=== PATIENT | female | born 1945 | race Caucasian/White ===

== ENCOUNTER → 2024-01-27 06:26 | Outpatient (REF) | payer MEDICARE, OTHER, SELFPAY ==
[2024-01-27 07:25] LABS: ALT (SGPT) 20 U/L (0-35); AST (SGOT) 28 U/L (14-36); Albumin 3.9 g/dl (3.5-5.0); Alkaline Phosphatase 92 U/L (38-126); Blood Urea Nitrogen 13 mg/dl (7-17); Calcium 9.5 mg/dl (8.4-10.2); Carbon Dioxide 26 mmol/L (22-30); Chloride 104 mmol/L (98-107); Glucose 91 mg/dl (70-99); Potassium 4.7 mmol/L (3.5-5.1); Sodium 136 mmol/L (135-145); Total Bilirubin 0.6 mg/dl (0.2-1.3); Total Protein 6.6 g/dl (6.3-8.2); eGFR > 60.00
[2024-01-27 07:27] LABS: % Basophils 1.5 % (0-2); % Eosinophils 3.4 % (0-6); % Immature Granulocytes 0.5 % (0-0.5); % Lymphocytes 28.4 % (20.5-51.1); % Monocytes 13.7 % (1.7-9.3); % Neutrophils 52.5 % (42.2-75.2); Absolute Basophils 0.1 10^3/uL (0-0.2); Absolute Eosinophils 0.1 10^3/uL (0-0.7); Absolute Lymphocytes 1.2 10^3/uL (1.2-3.4); Absolute Monocytes 0.6 10^3/uL (0.1-0.6); Absolute Neutrophils 2.1 10^3/uL (1.4-6.5); Hematocrit 37.1 % (37.0-47.0); Hemoglobin 12.9 g/dL (12.0-16.0); Mean Corp Hgb Conc. 34.8 g/dL (33.0-37.0); Mean Corpuscular Hgb 34.3 pg (27.0-31.0); Mean Corpuscular Volume 98.7 fL (81.0-99.0); Mean Platelet Volume 9.9 fL (7.4-10.4); Nucleated Red Blood Cells % 0 %; Platelet Count 188 10^3/uL (130-400); Red Blood Cell Count 3.76 10^6/uL (4.20-5.40); Red Cell Dist. Width 12.8 % (11.5-14.5); White Blood Cell Count 4.1 10^3/uL (4.8-10.8)
[2024-01-27 07:53] LABS: TSH 3.02 uIU/ml (0.47-4.68)
== END ==
LOC: REG 06:26
PROVIDERS: ATTENDING PHYSICIAN Family Medicine
DX: I10 Essential (primary) hypertension (principal); E78.2 Mixed hyperlipidemia; E03.9 Hypothyroidism, unspecified
CPT/HCPCS: 36415; 80053; 84443; 85025

== ENCOUNTER → 2024-01-29 09:55 | Outpatient (REF) | payer MEDICARE, OTHER, SELFPAY | LOC: REG 09:55 | PROVIDERS: ATTENDING PHYSICIAN Family Medicine | DX: R19.5 Other fecal abnormalities (principal) | CPT/HCPCS: 83993 ==

== ENCOUNTER → 2024-05-29 09:05 | Outpatient (REF) | payer MEDICARE, OTHER, SELFPAY ==
[2024-05-29 09:49] LABS: % Basophils 1.2 % (0-2); % Immature Granulocytes 0.4 % (0-0.5); % Lymphocytes 19.6 % (20.5-51.1); % Neutrophils 66.8 % (42.2-75.2); Absolute Basophils 0.1 10^3/uL (0-0.2); Absolute Eosinophils 0.1 10^3/uL (0-0.7); Absolute Monocytes 0.6 10^3/uL (0.1-0.6); Absolute Neutrophils 3.5 10^3/uL (1.4-6.5); Hemoglobin 12.5 g/dL (12.0-16.0); Mean Corp Hgb Conc. 34.7 g/dL (33.0-37.0); Mean Corpuscular Hgb 33.9 pg (27.0-31.0); Mean Corpuscular Volume 97.6 fL (81.0-99.0); Nucleated Red Blood Cells % 0 %; Platelet Count 182 10^3/uL (130-400); Red Blood Cell Count 3.69 10^6/uL (4.20-5.40); Red Cell Dist. Width 12.4 % (11.5-14.5); White Blood Cell Count 5.2 10^3/uL (4.8-10.8)
[2024-05-29 10:26] LABS: ALT (SGPT) 20 U/L (0-35); AST (SGOT) 26 U/L (14-36); Alkaline Phosphatase 77 U/L (38-126); Blood Urea Nitrogen 10 mg/dl (7-17); Calcium 9.3 mg/dl (8.4-10.2); Carbon Dioxide 26 mmol/L (22-30); Chloride 101 mmol/L (98-107); Glucose 84 mg/dl (70-99); HDL Cholesterol 73 mg/dl; LDL Cholesterol, Calculated 77 mg/dl; Potassium 4.5 mmol/L (3.5-5.1); Sodium 136 mmol/L (135-145); Total Bilirubin 0.4 mg/dl (0.2-1.3); Total Cholesterol 176 mg/dl (50-199); Total Protein 6.3 g/dl (6.3-8.2); Triglyceride 131 mg/dl (10-149); Very Low Density Lipoprotein 26 mg/dl (0-30); eGFR > 60.00
[2024-05-29 10:39] LABS: Vitamin D, 25-OH*** 32.9 ng/mL (30-80)
[2024-05-29 10:53] LABS: TSH 1.62 uIU/ml (0.47-4.68)
[2024-05-29 11:12] LABS: Vitamin B12 243 pg/ml (239-931)
== END ==
LOC: REG 09:05
PROVIDERS: ATTENDING PHYSICIAN Family Medicine
DX: E53.8 Deficiency of other specified B group vitamins (principal); E03.9 Hypothyroidism, unspecified; E55.9 Vitamin D deficiency, unspecified; I10 Essential (primary) hypertension; E78.2 Mixed hyperlipidemia
CPT/HCPCS: 36415; 80053; 80061; 82306; 82607; 84443; 85025

== ENCOUNTER → 2024-09-25 14:57 | Outpatient (REF) | payer MEDICARE, OTHER, SELFPAY | LOC: RAD 14:57 | PROVIDERS: ATTENDING PHYSICIAN Internal Medicine Gastroenterology | DX: K59.01 Slow transit constipation (principal) | CPT/HCPCS: 74018 ==

== ENCOUNTER → 2024-09-29 06:27 | Outpatient (REF) | payer MEDICARE, OTHER, SELFPAY ==
[2024-09-29 08:35] LABS: % Basophils 1.9 % (0-2); % Eosinophils 3.2 % (0-6); % Immature Granulocytes 0.2 % (0-0.5); % Lymphocytes 28.3 % (20.5-51.1); % Monocytes 14.4 % (1.7-9.3); Absolute Basophils 0.1 10^3/uL (0-0.2); Absolute Eosinophils 0.1 10^3/uL (0-0.7); Absolute Lymphocytes 1.2 10^3/uL (1.2-3.4); Absolute Monocytes 0.6 10^3/uL (0.1-0.6); Absolute Neutrophils 2.2 10^3/uL (1.4-6.5); Hematocrit 37.7 % (37.0-47.0); Hemoglobin 12.5 g/dL (12.0-16.0); Mean Corp Hgb Conc. 33.2 g/dL (33.0-37.0); Mean Corpuscular Hgb 33.7 pg (27.0-31.0); Mean Corpuscular Volume 101.6 fL (81.0-99.0); Mean Platelet Volume 10.7 fL (7.4-10.4); Nucleated Red Blood Cells % 0 %; Platelet Count 175 10^3/uL (130-400); Red Blood Cell Count 3.71 10^6/uL (4.20-5.40); Red Cell Dist. Width 12.9 % (11.5-14.5); White Blood Cell Count 4.3 10^3/uL (4.8-10.8)
[2024-09-29 09:11] LABS: ALT (SGPT) 21 U/L (0-35); AST (SGOT) 26 U/L (14-36); Alkaline Phosphatase 74 U/L (38-126); Blood Urea Nitrogen 18 mg/dl (7-17); Calcium 8.9 mg/dl (8.4-10.2); Carbon Dioxide 29 mmol/L (22-30); Chloride 104 mmol/L (98-107); Glucose 86 mg/dl (70-99); HDL Cholesterol 87 mg/dl; LDL Cholesterol, Calculated 83 mg/dl; Sodium 141 mmol/L (135-145); Total Bilirubin 0.5 mg/dl (0.2-1.3); Total Cholesterol 179 mg/dl (50-199); Total Protein 6.4 g/dl (6.3-8.2); Triglyceride 49 mg/dl (10-149); Very Low Density Lipoprotein 9 mg/dl (0-30); eGFR > 60.00
[2024-09-29 09:42] LABS: TSH 2.62 uIU/ml (0.47-4.68)
[2024-09-29 10:01] LABS: Vitamin B12 265 pg/ml (239-931)
[2024-09-30 21:47] LABS: Vitamin D 1,25 Dihydroxy 42.3 pg/mL (19.9-79.3)
== END ==
LOC: REG 06:27
PROVIDERS: ATTENDING PHYSICIAN Family Medicine
DX: E55.9 Vitamin D deficiency, unspecified (principal); E53.8 Deficiency of other specified B group vitamins; E03.9 Hypothyroidism, unspecified; I10 Essential (primary) hypertension; E78.2 Mixed hyperlipidemia
CPT/HCPCS: 36415; 80053; 80061; 82607; 82652; 84443; 85025

== ENCOUNTER → 2025-02-14 06:23 | Outpatient (REF) | payer MEDICARE, OTHER, SELFPAY ==
[2025-02-14 07:39] LABS: % Basophils 1.6 % (0-2); % Eosinophils 2.1 % (0-6); % Immature Granulocytes 0.5 % (0-0.5); % Lymphocytes 24.9 % (20.5-51.1); % Monocytes 9.6 % (1.7-9.3); % Neutrophils 61.3 % (42.2-75.2); Absolute Basophils 0.1 10^3/uL (0-0.2); Absolute Eosinophils 0.1 10^3/uL (0-0.7); Absolute Lymphocytes 1.1 10^3/uL (1.2-3.4); Absolute Monocytes 0.4 10^3/uL (0.1-0.6); Absolute Neutrophils 2.6 10^3/uL (1.4-6.5); Hematocrit 37.8 % (37.0-47.0); Hemoglobin 12.6 g/dL (12.0-16.0); Mean Corp Hgb Conc. 33.3 g/dL (33.0-37.0); Mean Corpuscular Hgb 33.6 pg (27.0-31.0); Mean Corpuscular Volume 100.8 fL (81.0-99.0); Mean Platelet Volume 10.5 fL (7.4-10.4); Nucleated Red Blood Cells % 0 %; Platelet Count 185 10^3/uL (130-400); Red Blood Cell Count 3.75 10^6/uL (4.20-5.40); White Blood Cell Count 4.3 10^3/uL (4.8-10.8)
[2025-02-14 08:16] LABS: ALT (SGPT) 17 U/L (0-35); AST (SGOT) 21 U/L (14-36); Albumin 4.1 g/dl (3.5-5.0); Alkaline Phosphatase 71 U/L (38-126); Blood Urea Nitrogen 17 mg/dl (7-17); Calcium 9.2 mg/dl (8.4-10.2); Carbon Dioxide 25 mmol/L (22-30); Chloride 111 mmol/L (98-107); Glucose 91 mg/dl (70-99); HDL Cholesterol 77 mg/dl; LDL Cholesterol, Calculated 98 mg/dl; Potassium 4.8 mmol/L (3.5-5.1); Sodium 143 mmol/L (135-145); Total Bilirubin 0.7 mg/dl (0.2-1.3); Total Cholesterol 185 mg/dl (50-199); Total Protein 6.6 g/dl (6.3-8.2); Triglyceride 54 mg/dl (10-149); Very Low Density Lipoprotein 10 mg/dl (0-30); eGFR > 60.00
[2025-02-14 08:39] LABS: TSH 2.39 uIU/ml (0.47-4.68)
[2025-02-14 08:59] LABS: Vitamin B12 742 pg/ml (239-931)
== END ==
LOC: REG 06:23
PROVIDERS: ATTENDING PHYSICIAN Family Medicine
DX: Z00.00 Encounter for general adult medical examination without abnormal findings (principal); M85.89 Other specified disorders of bone density and structure, multiple sites; I65.1 Occlusion and stenosis of basilar artery; H35.3132 Nonexudative age-related macular degeneration, bilateral, intermediate dry stage; E78.2 Mixed hyperlipidemia; E55.9 Vitamin D deficiency, unspecified; E53.8 Deficiency of other specified B group vitamins; E03.9 Hypothyroidism, unspecified; K59.01 Slow transit constipation; R79.0 Abnormal level of blood mineral; I10 Essential (primary) hypertension
CPT/HCPCS: 36415; 80053; 80061; 82607; 84443; 85025

== ENCOUNTER → 2025-03-07 14:12 | Outpatient (REF) | payer MEDICARE, OTHER, SELFPAY | LOC: PAVMRI 14:12 | PROVIDERS: ATTENDING PHYSICIAN Psychiatry & Neurology Neurology; FAMILY PHYSICIAN Family Medicine | DX: R26.9 Unspecified abnormalities of gait and mobility (principal); R42 Dizziness and giddiness | CPT/HCPCS: 70553; A9575 ==

== ENCOUNTER → 2025-03-20 06:49 | Outpatient (REF) | payer MEDICARE, OTHER, SELFPAY ==
[2025-03-20 08:15] LABS: VerifyNow Aspirin 552 ARU
[2025-03-20 08:39] LABS: HDL Cholesterol 75 mg/dl; LDL Cholesterol, Calculated 82 mg/dl; Very Low Density Lipoprotein 13 mg/dl (0-30)
== END ==
LOC: REG 06:49
PROVIDERS: ATTENDING PHYSICIAN Psychiatry & Neurology Neurology; FAMILY PHYSICIAN Family Medicine
DX: I63.9 Cerebral infarction, unspecified (principal); E03.9 Hypothyroidism, unspecified
CPT/HCPCS: 36415; 80061; 85576

== ENCOUNTER → 2025-03-24 07:35 | Outpatient (REF) | payer MEDICARE, OTHER, SELFPAY ==
[2025-03-24 11:04] LABS: Glycohemoglobin (HgbA1c) 5.2 % (4.0-5.6)
[2025-03-27 01:00] LABS: MuSK IgG Ab CBA IFA, Serum <1:10 (<1:10)
== END ==
LOC: REG 07:35
PROVIDERS: ATTENDING PHYSICIAN Registered Nurse Critical Care Medicine; FAMILY PHYSICIAN Family Medicine
DX: R13.10 Dysphagia, unspecified (principal); I63.9 Cerebral infarction, unspecified
CPT/HCPCS: 36415; 83036; 86041; 86366

== ENCOUNTER → 2025-04-02 08:52 | Outpatient (REF) | payer MEDICARE, OTHER, SELFPAY ==
--- NOTE | 2025-04-03 16:33 | EEG.RPT ---
Electroencephalogram Report
Recording
Date of EE04/02/25
Type of EEG: Ambulatory
Length of EEG recordin day 19 minutes
Done with Video Recording: No
Patient Status: Outpatient
Recording Conditions: Awake, Drowsy and Asleep
Hyperventilation Performed: No
Photic Stimulation Performed: Yes
Report
24 HOUR AMBULATORY EEG SUMMARY
24 HOUR AMBULATORY EEG CONCLUSION(S):
Likely unremarkable EEG for age
CLINICAL CORRELATION:
Although normative values not been established for a person of this advanced age, this study was unremarkable. The patient's log entries did not indicate symptomatology.
An unremarkable EEG may not rule out a diagnosis of epilepsy. If concerns remain, then a prolonged study may be of assistance.
Clinical correlation is advised.
METHODS:
A 21 channel digitized electroencephalogram (EEG) was initiated in the [facility]. The patient wore the device outside of the laboratory and returned after 24 hours for electrode and recorder removal. The 10/20
international system of electrode placement was used with bipolar electrode montage recorded. ECG was monitored. Persyst quantitative EEG system was performed.
IMPRESSION(S):
Quality
Good
Background
Maximal wakefulness: alpha
There was a normal anterior-posterior voltage gradient. With eye opening the background activity changed. No significant asymmetries of background activity noted.
Sleep
Drowsiness was suggested by slowing of the background rhythms
Stage I sleep was recorded
Stage 2 sleep was recorded
Slow-wave sleep was recorded
Photic stimulation was without activation of the record
ECG
Unremarkable
== END ==
LOC: EEG 08:52
PROVIDERS: ATTENDING PHYSICIAN Registered Nurse Critical Care Medicine; FAMILY PHYSICIAN Family Medicine
DX: R79.0 Abnormal level of blood mineral (principal)
CPT/HCPCS: 95708

== ENCOUNTER → 2025-04-06 07:40 | Outpatient (REF) | payer MEDICARE, OTHER, SELFPAY ==
[2025-04-06 10:33] LABS: Ferritin 41.8 ng/ml (11.1-264.0)
== END ==
LOC: REG 07:40
PROVIDERS: ATTENDING PHYSICIAN Registered Nurse Critical Care Medicine; FAMILY PHYSICIAN Family Medicine
DX: R79.0 Abnormal level of blood mineral (principal)
CPT/HCPCS: 36415; 82728

== ENCOUNTER → 2025-04-11 07:07 | Outpatient (REF) | payer MEDICARE, OTHER, SELFPAY ==
[2025-04-11 09:03] LABS: Ferritin 46.0 ng/ml (11.1-264.0)
== END ==
LOC: REG 07:07
PROVIDERS: ATTENDING PHYSICIAN Registered Nurse Critical Care Medicine; FAMILY PHYSICIAN Family Medicine
DX: R79.0 Abnormal level of blood mineral (principal)
CPT/HCPCS: 36415; 82728

== ENCOUNTER 2025-04-18 09:57 | Outpatient (RCR) | payer MEDICARE, OTHER, SELFPAY | END 2025-04-24 23:59 | disposition home or self-care (01) | LOC: ROT 09:57 | PROVIDERS: ATTENDING PHYSICIAN Registered Nurse Critical Care Medicine; FAMILY PHYSICIAN Family Medicine | DX: I69.391 Dysphagia following cerebral infarction (principal); I69.311 Memory deficit following cerebral infarction; I69.351 Hemiplegia and hemiparesis following cerebral infarction affecting right dominant side; I69.318 Other symptoms and signs involving cognitive functions following cerebral infarction; I69.310 Attention and concentration deficit following cerebral infarction; I69.314 Frontal lobe and executive function deficit following cerebral infarction; R13.10 Dysphagia, unspecified; Z73.6 Limitation of activities due to disability | CPT/HCPCS: 96125; 97163; 97167; 97530; 97535 ==

== ENCOUNTER 2025-04-24 18:40 | Inpatient (IN) | payer MEDICARE, OTHER, SELFPAY ==
[2025-04-24 10:55] VITALS: BP 177/84
[2025-04-24 11:22] LABS: Hematocrit 38.2 % (37.0-47.0); Hemoglobin 13.7 g/dL (12.0-16.0); Mean Corp Hgb Conc. 35.9 g/dL (33.0-37.0); Mean Corpuscular Volume 94.3 fL (81.0-99.0); Nucleated Red Blood Cells % 0 %; Platelet Count 193 10^3/uL (130-400); Red Cell Dist. Width 11.7 % (11.5-14.5)
[2025-04-24 11:47] LABS: ALT (SGPT) 47 U/L (0-35); AST (SGOT) 35 U/L (14-36); Albumin 4.6 g/dl (3.5-5.0); Alkaline Phosphatase 100 U/L (38-126); Blood Urea Nitrogen 16 mg/dl (7-17); Calcium 9.9 mg/dl (8.4-10.2); Carbon Dioxide 20 mmol/L (22-30); Chloride 102 mmol/L (98-107); Glucose 95 mg/dl (70-99); Lipase 247 U/L (23-300); Potassium 5.5 mmol/L (3.5-5.1); Sodium 133 mmol/L (135-145); Total Protein 7.2 g/dl (6.3-8.2); eGFR > 60.00
[2025-04-24 11:50] LABS: Troponin I < 0.012 ng/ml
[2025-04-24 14:00] VITALS: BP 159/69
--- NOTE | 2025-04-24 14:15 | ED.GENMED ---
History of Present Illness
General
Chief Complaint: Abdominal Symptoms
Source: patient
Exam Limitations: none
Time Seen by Provider: 04/24/25 13:59
Nursing documentation reviewed up to this point in time: agreed with
History of Present Illness
History of Present Illness:
Patient with history of recent CVA and subsequent development of seizure disorder, currently on Keppra, presents to ED secondary to loss of appetite along with generalized weakness that started taking Keppra, along with persistent nonbloody diarrhea
over the past 3 days. Patient reports feeling weak and tired, and feeling of dehydration. Patient states that she has not been able to have anything substantial for the past 3 days. Denies fever or chills. Denies abdominal pain. Denies
vomiting. Denies dizziness. Denies shortness of breath. Patient has spoken with her neurologist and she is currently being tapered off Keppra, and starting on lacosamide.
Past History
Past History
ED Past Medical History: HTN, Hypercholesterolemia, Hypothyroidism and Other (Vertigo)
ED Past Surgical History: Other (Cataract surgery)
Social History
Tobacco: Non-smoker
Alcohol: Daily
Drug: None
Personal:
Living: with family
Employment: Retired
Family History
Family History: CAD
Review of Systems
Review of Systems
Allergies reviewed?: Yes
All Other Systems: ROS reviewed and negative except as documented in HPI and ROS
Constitutional: Reports no symptoms
Respiratory: Denies trouble breathing
Cardiac: Denies chest pain or palpitations
ABD/GI: Reports diarrhea; Denies abdominal pain or vomiting
Musculoskeletal: Reports no symptoms
Neurological: Reports weakness; Denies dizzy
Phy Exam
Physical Exam
Physical Exam:
Physical Exam
General: mild distress, not acutely ill. afebrile. weak appearing.
Head: nc/at. eomi
Neck: supple. no meningeal signs.
Heart: s1/s2 regular rate and rhythm
Lungs: no acute respiratory distress. clear bilaterally
Abdomen: normal bowel sounds. not tender. no distention
Neuro: alert and oriented x 3. no focal neurological deficits
Skin: no rash
Psychiatric: well kept. interactive and cooperative
Extremities: no edema. no calf tenderness.
Course
Orders/Labs/Results
Orders:
Orders
04/24/25 10:59
Electrocardiogram (*1) Urgent
Reason for Study: Shortness of Breath
EKG- Treatment ONCE
04/24/25 11:08
Complete Blood Count/With Diff Urgent
Comprehensive Metabolic Panel Urgent
Lipase Urgent
Magnesium Urgent
Comment: ADD ON
Troponin I Urgent
04/24/25 14:14
Add On- LAB Urgent
Tests Added?: magnesium
Stool Culture Urgent
ELYSIA Source: Feces/Stool
Specimen Description:
Date Specimen was Collected: 04/24/25
Time Specimen was Collected: 16:27
04/24/25 14:15
0.9% Sodium Chloride 1000 ml [Nss] 1,000 ml IV BOLUS
Pantoprazole [Protonix IV] 40 mg IV NOW STA
04/24/25 16:30
0.9% Sodium Chloride 1000 ml [Nss] 1,000 ml IV 100 mls/hr
04/24/25 18:11
Admit/Transfer Patient As Directed
Co-Sign Provider:
Level of Care: Inpatient admission
Assign to:: Medical/Surgical
Physician / Group: Hospitalists, Long
Diagnosis: Generalized Weakness and Malaise
Reason for Hospitalization: Generalized Weakness and Malaise
Expected length of stay greater than two midnights?: Yes
ELOS- Estimated Length of Stay in days: 4
I certify the patient meets the requirements for IP care: Yes
PRN Pain Medication Management As Directed
May give lesser potent ordered pain med per pt: Yes
preference::
Protocol:: Medication orders for pain may be administered in a
manner that supports deferring to patient preference
when the pt is:
- Requesting an ordered lesser potent pain medication.
Least to most potent pain medications are defined
as: acetaminophen < NSAID < tramadol < opioids
(morphine, oxycodone, hydromorphone).
- Requesting a lesser dose of the same medication IF
ORDERED.
- Requesting a less intrusive route of administration
if both routes are prescribed by the provider (PO <
IV).
04/24/25 18:16
Code Status As Directed
Resuscitation Status: Do not resuscitate
Reached after discussion with pt or family/Healthcare POA: Yes
DNR Bracelet Application ONCE
04/24/25 20:25
Ondansetron Orally Disint [Zofran Odt (Orally Disintegrating)] 4 mg PO TIDPRN PRN nausea/vomiting
04/24/25 20:45
Urinalysis Reflex To Culture Routine
Abnormal Lab Results
04/24/25
11:08
RBC 4.05 L 10^6/uL
(4.20-5.40)
MCH 33.8 H pg
(27.0-31.0)
Absolute Lymphs (auto) 0.9 L 10^3/uL
(1.2-3.4)
Lymphocytes % 13.6 L %
(20.5-51.1)
Sodium 133 L mmol/L
(135-145)
Potassium 5.5 H mmol/L
(3.5-5.1)
Carbon Dioxide 20 L mmol/L
(22-30)
ALT 47 H U/L
(0-35)
04/24/25 11:08
04/24/25 11:08
Vital Signs
Initial and Last Documented VS:
Initial Vital Signs
Temp Pulse Resp BP Pulse Ox
97.6 F 63 16 177/84 100
04/24/25 10:55 04/24/25 10:55 04/24/25 10:55 04/24/25 10:55 04/24/25 10:55
Last Documented Vital Signs
Temp Pulse Resp BP Pulse Ox
97.6 F 63 18 158/84 96
04/24/25 10:55 04/24/25 19:38 04/24/25 19:38 04/24/25 19:09 04/24/25 19:38
MDM/Problems Addressed
MDM/Problems Addressed:
History and exam consistent with dehydration, multifactorial, i.e. medication side effect from Keppra as well as GI loss from diarrhea. Patient will require further IV hydration along with potential neurology consultation discussed potential
medication side effect.
*Pulse Oximetry
SaO2: 100
Oxygen Mode of Delivery: Room air
Patient hypoxic: no
*Critical Care Note
Total Time (30-74mins, 75-104mins- exclusive of procedures): Not Applicable
ED Attending Note
-
Portions of this chart may have been created with voice recognition software.� Occasional wrong word or��sound alike� substitutions may have occurred due to the inherent limitations of voice recognition software.
Discharge Plan
Departure
Patient Disposition: Admit
Date of Disposition: 04/24/25
Time of Disposition: 16:28
Admit to: Med/Surg
Presentation/result/management discussed w/ accepting MD/DO: Hospitalist
Discharge Problem:
Weakness, Dehydration, Medication side effect
Interventions
Interventions:
*Risk Screen - Suicide Last Done: 04/24/25 10:58
*General Assessment Last Done: 04/24/25 14:00
*Neglect/Abuse Screening Last Done: 04/24/25 10:58
*ED- Fall Risk Assessment Last Done: 04/24/25 14:00
*ED COVID-19 Vaccine History Last Done: 04/24/25 14:00
CO-Dgdwjz-Hjywzzecxe Assessment Last Done: 04/24/25 14:00
ED- Cardiac Assessment Last Done: 04/24/25 14:00
ED- Pulmonary Assessment Last Done: 04/24/25 14:00
[2025-04-24] MEDS: NSS 1000 IV ×2 (14:34→17:07)
[2025-04-24] MEDS: PROTONIX IV 40 MG IV (14:35)
[2025-04-24 14:47] LABS: Magnesium 1.9 mg/dl (1.6-2.3)
--- NOTE | 2025-04-24 18:39 | HPS.HSE ---
Addendum entered and electronically signed by Felisha Alves MD 04/24/25 19:18:
I personally performed a history and physical exam of the patient and discussed management with the resident. I reviewed the resident's note and agree with the documented findings and plan of care HPI/CC.
GENERAL: well developed, well nourished, female in no apparent distress
HEENT: NC/AT
HEART: regular rate and rhythm, +S1, +S2
LUNGS : clear to auscultation bilaterally
ABDOM: soft, nontender, nondistended, + bowel sounds
EXT: no cyanosis, clubbing, or edema
NEUROLOGIC: grossly intact
Generalized weakness/nausea/anorexia/watery diarrhea--all likely from Keppra initiation back on 03/16/25 for witnessed seizure--follows with neuro and on taper of Keppra with addition and increase of Vimpat--consult neuro--cont IVF, Imodium PRN--will
follow neuro's guidelines to stop Keppra now and increase Vimpat--check cortisol, TSH, UA C&S, C.diff
Hyperkalemia--Possibly in setting of medication or electrolyte imbalance due to dehydration, but given normal EKG and asymptomatic we will continue to monitor
Hyponatremia--Again likely in setting of dehydration and poor intake--cont IVF
History of CVA (Confirmed on MRI 03/07/20) with seizure likely as result--finished asa/plavix and now on plavix--PT/OT/speech--cont atorvastatin
Iron deficiency anemia--ferritin low normal 04/11/25--will recheck as pt gets iron infusions--NOT anemic--HGB 13.7--check iron studies, B12, folate
Hypothyroidism--Continue levothyroxine 50 mg p.o. daily and check TSH
Essential Hypertension--cont losartan/amlodipine
Hypercholesterolemia--atorvastatin
GERD--Continue pantoprazole
DVT proph-- Lovenox
CODE STATUS--DNR
Original Note:
Family Physician
-
Family Physician: Efra Joseph
Chief Complaint
-
Generalized Weakness
History of Present Illness
Mayjo 79yo F with HTN, hypercholesterolemia, hypothyroidism, vestibular neuritis, recent stroke (most likely january), and 1 witnessed (by family) seizure currently on Keppra 500 mg twice daily and Vimpat [address] Tyson, who presents to ED due to
a 3 to 4-week loss of appetite, anorexia, 5-6lb wt loss, generalized weakness, along with persistent watery diarrhea for the past 3 days.� She reports that she had a brain MRI done in February after her family noticed that she was a little bit slow to
respond/not as 'present' during conversations as her prior self. Findings were most consistent with evolving subacute-chronic infarct in the left romero radiata. She had no residual symptoms from the CVA. Per family inpatient, on March 16 she had a
seizure that was witnessed by her 4 daughters and 4 sons that lasted about 20 to 30 minutes. Her daughters describe this episode as their mom looking off to the distance, vomiting, going stiff with open mouth then passing out. They called
ambulance and she was taken to [facility] where she was started on Keppra and Plavix and then discharged the next day with neurology follow-up, OT/PT/speech, and PCP follow-up. Patient reports that since she started the Keppra, she has had a weird
taste in her mouth, persistent nausea, weak appetite, and has been feeling very weak/tired. This has been going on for the past 3 weeks. She reached out to Dr. Tyson's office and per his BRICK POINTER, she has been tapering off of Keppra in combination with
Vimpat. This is week 2 of 3 of the taper. She denies recent infections, abdominal pain, vomiting, dizziness, shortness of breath, chest pain, recent travel, and any new med changes. She had a recent EEG done here that was unremarkable. She has
not had any other seizure episodes since March 16.
Medical History
Past Medical History
Past Medical History: Reports CVA, Hypercholesterolemia and Hypothyroidism
Additional Past Medical History:
Hypertension, vestibular neuritis
Past Surgical History: Reports Other (Cataract surgery)
Additional Past Surgical History:
Cataract surgery
Social History
Tobacco: Former Smoker (Quit over 40 years ago)
Alcohol: None (Since starting Keppra over a month ago. Otherwise, used to drink 1 glass of wine daily.)
Drug: None
Personal:
Living: With Family
Employment: Retired
Family History
Family History: Early CAD and Sudden (She reports that her parents both 'dropped .' Her mom at age 48 and father at age 50.)
Allergies / Home Medications
Allergies reflects when Allergies were last updated in [facility].
Home Medications with original date entered in [facility]
Allergy/Medication List:
Allergies
Allergy/AdvReac Type Severity Reaction Status Date / Time
No Known Allergies Allergy Verified 03/24/23 19:27
Home Medications
aspirin 81 mg tablet,delayed release 81 mg PO HS Blood Clot Prevention/Tx 01/26/18
levothyroxine 50 mcg tablet 50 mcg PO DAILY AT 0700 Thyroid 01/26/18
meclizine 25 mg tablet 25 mg PO Q8HPRN PRN dizzy 01/26/18
atorvastatin 40 mg tablet 40 mg PO HS ##30 01/28/18
ondansetron 4 mg disintegrating tablet 4 mg PO TIDPRN PRN nausea/vomiting #10 tabs 09/09/21
amlodipine 5 mg tablet 5 mg PO BID Blood Pressure 03/24/23
losartan 50 mg tablet 50 mg PO BID Blood Pressure 03/24/23
turmeric 400 mg capsule 1 tab PO DAILY Supplement 03/24/23
vitamins A,C,V-kqeg-owdbff 4,296 mcg-226 mg-90 mg capsule (PreserVision AREDS) 1 cap PO BID Supplement 03/24/23
famotidine 40 mg tablet (Pepcid) 40 mg PO HS #7 tabs 03/27/23
ondansetron HCl 4 mg tablet 4 mg PO TID PRN nausea and vomiting 3 days #10 tabs 03/27/23
pantoprazole 40 mg tablet,delayed release (Protonix) 40 mg PO DAILY #30 tabs 03/27/23
cefdinir 300 mg capsule 300 mg PO Q12H 5 days #10 caps 04/03/23
Review of Systems
-
History Source: Patient
A 12 point ROS was completed and negative except as noted: Yes
Constitutional: Reports Weight Loss and Fatigue
EENT: Reports Other (Metallic taste in mouth)
Abdomen/GI: Reports Diarrhea (Watery)
Physical Exam
Vital Signs
Vital Signs
Temp Pulse Resp BP Pulse Ox
97.6 F 56 16 159/69 100
04/24/25 10:55 04/24/25 14:00 04/24/25 14:00 04/24/25 14:00 04/24/25 14:17
Physical Exam
General: Comfortable, Conversant and Cachectic
HEENT: NormoCephalic, Anicteric and Moist mucous membranes
Respiratory: Clear and Non Labored Respirations
Cardiac: S1/S2 and Regular Rhythm
GI: Soft, Non Tender and Non Distended
Musculoskeletal: No Clubbing and No Cyanosis
Skin: Warm and Dry
Neuro: AO x 3
Psych: Calm and Intact Judgment/Insight
Laboratory Results
-
04/24/25 11:08
04/24/25 11:08
Laboratory Results
Total Bilirubin 0.5 mg/dl (0.2-1.3) 04/24/25 11:08
AST 35 U/L (14-36) 04/24/25 11:08
ALT 47 U/L (0-35) H 04/24/25 11:08
Alkaline Phosphatase 100 U/L (38-126) 04/24/25 11:08
Troponin I < 0.012 ng/ml 04/24/25 11:08
Lipase 247 U/L (23-300) 04/24/25 11:08
Impression/Plan
-
IMPRESSION:
Sheree was an 79-year-old female with HTN, hypercholesterolemia, hypothyroidism, vestibular neuritis, recent stroke (most likely january), and 1 witnessed (by family) seizure currently on Keppra 500 mg twice daily (started March 17) and Vimpat [address] Tyson, who presents to ED due to a 3 to 4-week loss of appetite, anorexia, 5-6lb wt loss, generalized weakness, along with persistent watery diarrhea for the past 3 days. EEG on 04/06/2025 was unremarkable. She has had no seizures since March 16
and none witnessed in the hospital setting or on EEG. MRI 03/07/2025 was remarkable for subacute-chronic infarct in the left romero radiata. She follows with Dr. Tyson.
PLAN:
#Generalized weakness
#Weight loss
#Watery diarrhea
#Nausea
ISO HDS, no fever, no leukocytosis, and timeline aligning with recent medication change of adding Keppra, differential is most likely due to adverse side effect of medication. She is currently on a taper per Dr. Tyson's office, however her symptoms
continue to persist. Other etiologies include infectious although unlikely given isolated symptoms, endocrine related such as adrenal insufficiency (hyponatremia and hyperkalemia), or multifactorial.
-Consult neuro, appreciate recs
--Per Dr. Tyson, stop Keppra and increase dose of Vimpat from 150 mg twice daily to 200 mg twice daily immediately
-IV fluids: NSS at 100 mL/hour
-Follow-up morning cortisol, TSH, UA, C. difficile, mag, CMP, CBC and stool antigen
-Start Imodium as needed
-Continue Zofran 4 mg as needed
-PT/OT/speech consult
#Hyperkalemia
5.5. Possibly in setting of medication or electrolyte imbalance due to dehydration, but given normal EKG and asymptomatic we will continue to monitor
#Hyponatremia
133. Again likely in setting of dehydration and poor intake
-IV fluids as above
#History of CVA
Confirmed on MRI 03/07/2025
-Continue Plavix 75 mg daily
-Follow-up neurology consult
#Iron deficiency anemia
This is reported per patient. She says she gets iron infusions per Dr. Tyson.
-Follow-up iron studies
#Hypothyroidism
-Continue levothyroxine 50 mg p.o. daily
#Hypertension
-Continue losartan 50 mg p.o. twice daily
-Continue amlodipine 2.5 mg p.o. twice daily
#Hypercholesterolemia
-Continue atorvastatin 40 mg p.o. at bedtime
#GERD
-Continue pantoprazole 40 mg daily
DVT prophylaxis: Lovenox
CODE STATUS: DNR
[2025-04-24 19:09] VITALS: BP 158/84
[2025-04-24 20:00] VITALS: BP 149/75
[2025-04-24] MEDS: ZOFRAN ODT (ORALLY DISINTEGRATING) 4 MG PO (20:31)
[2025-04-24 21:19] LABS: Urine Character Clear (Clear)
[2025-04-24 21:53] LABS: Urine Squamous Cell 0-2 /LPF (Few); Urine Urothelial Cell 0-2 /LPF (FEW)
[2025-04-24] MEDS: VIMPAT 200 MG PO (22:45)
[2025-04-24] MEDS: LIPITOR 40 MG PO (22:45)
[2025-04-24] MEDS: LOVENOX 40 MG SC (22:45)
[2025-04-24] MEDS: COZAAR 50 MG PO (22:46)
[2025-04-24 23:00] VITALS: BMI 19.5
[2025-04-25 00:36] LABS: Glucose - Point of Care 91 mg/dl (70-99)
[2025-04-25] MEDS: OFIRMEV 100 IV (00:48)
[2025-04-25] MEDS: BENADRYL 6.25 MG IV (00:48)
--- NOTE | 2025-04-25 02:53 | W.PN.UPDATE ---
Update Note
Progress Note Update
0000 Subjective: pt c/o 04/22 headache-when eyes closed 'sees tapia' NIH 0 otherwise.
Background: pt with recent hx of discovery of left lacunar stroke when [facility]. Placed on keppra but like having ill side effects off med and recently being weaned off keppra and placed on vimpat.
Yesterday present to ED for weakness, n/v and dehydration
Plan: treat headache with migraine cocktail - ofirmev and small dose of benadryl, check CT head to rule out and new abnormalities.
023 Ct scan head shows chronic lacunar infarct left ganglia. No intracranial bleeding. No definite evidence of acute large territorial ischemia
[2025-04-25] MEDS: NSS 1000 IV (04:15)
[2025-04-25] MEDS: SYNTHROID 50 MCG PO (05:50)
[2025-04-25 07:00] VITALS: BP 136/64
--- NOTE | 2025-04-25 08:41 | CON.NEURO4 ---
Addendum entered and electronically signed by Roshan Tyson MD 04/25/25 10:53:
Studies reviewed.
I have personally examined the patient. I reviewed and agree with the CERTIFIED MEDICAL DOSIMETRIST's Note.
My addenda:
Awake, alert, interactive. No acute distress.
Speech intact.
Follows 2-step requests w/o difficulty. No tremor.
Extra-ocular movements grossly intact.
Facial movements full and symmetric. Hearing intact to normal conversational volume.
Normal UE movements bilaterally.
Neck: full ROM.
Chest: no dyspnea
Heart: no JVD
Ext: (-) Clubbing, (-) Cyanosis, (-) Edema
IMPRESSIONS/RECOMMENDATIONS:
Abrupt onset of generalized weakness
Most likely secondary to significant side effect of levetiracetam in this patient
Discontinue levetiracetam
Change dosing of lacosamide from 150 mg twice a day to 200 milligrams twice a day immediately
Supportive care
Replace aspirin with clopidogrel as there was no evidence of efficacy for aspirin
Provide IV iron immediately as the patient was found to be ferritin deficient previously
D/W patient / family
Will continue to follow as outpatient.
Original Note:
Consultation - Neurology 4
-
CONSULTING PHYSICIAN: Dr. Roshan Tyson MD
REFERRING PHYSICIAN: Marichuy Iraheta MD resident
DICTATED BY: MELISSA Smith
DATE/TIME OF REQUEST: 04/24/2025
DATE/TIME OF CONSULTATION: 04/24/2025
Reason for Consultation: generalized weakness, history of seizure
History of Present Illness:
This is a 79-year-old female patient with history of hypertension, hyperlipidemia, hypothyroidism, vestibular neuritis, recent stroke February 2025 with new onset seizure March 16, 2025 who presented to the ER after 3 to 4 weeks of loss of appetite,
anorexia, generalized weakness and persistent diarrhea. She had reported she has had loss of appetite and GI upset since starting levetiracetam back in March. She is a patient known to our practice as an outpatient. She did call the office and was
in the midst of transitioning to lacosamide when symptoms worsened prompting her to come to the ER yesterday 04/24/2025. She reports today she is feeling much better as she has been rehydrated with IV fluids and Levetiracetam has been discontinued.
She does admit to a headache last evening 04/22 in intensity. She was given Ofirmev and Benadryl, Which resolved headache. She reported associated eye floaters with eyes closed, nasuea and some chin tremor associated with headache. She denies any
frequent headaches. She denies any new focal neurologic deficits. She denies any weakness, numbness or tingling of extremities. She denies any trouble with speech or swallowing. She denies any confusion. She denies any vision changes. Admits
to chronic dizziness. She has continued on Plavix as aspirin was noted not to be efficacious on testing. She has continued on atorvastatin 40 mg.
'(03/20/2025)
Patient seen in the office today with her son and daughter. She has had several significant findings/events since her last appointment. She had an MRI brain completed on 03/07/25 ordered at her last office visit in November, due to complaint of gait
abnormality, which demonstrated a subacute/chronic left romero radiata ischemic infarct. She was already on aspirin monotherapy, 7 days of Plavix was ordered. Her atorvastatin was also increased from 10mg to 40mg daily.�She is now out of Plavix and
has continued on aspirin monotherapy. She completed aspirin efficacy testing this morning, which demonstrates that aspirin is not effective for her. 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
following up with Neurology in person due to travel.
Her family notes that they have noticed several episodes of the patient staring and not being quickly responsive to them starting around mid-January. On 03/16/25 they had spent the day outside at the beach and were sitting by the pool, when she suddenly
started starring to the left, her right arm started shaking, and she vomited. They were unable to get her to wake back up from this episode and called 911. She was evaluated at [facility] where she became alert again but they
report it took 1-2 hours for her to return to her baseline. There was no tongue biting or incontinence of bowel/bladder with this event. She had a repeat MRI brain noncontrast which demonstrated the same subacute stroke on prior MRI brain imaging
and no other abnormal findings. They also completed a carotid ultrasound which was unremarkable. They did not have EEG access and this test was not performed. She was evaluated by Neurology there and they started her on Keppra 500mg twice a day.
She reports that she has been doing well since that event. She is tolerating Keppra without any mood issues. She feels mildly fatigued. She notes that her handwriting in her right hand has been poor over the past few months and additionally she has
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 Her gait continues to be off-balance but she denies any falls. She reports difficulty swallowing, especially in the evening. She also feels like she drools out of the right side
of her mouth at times. The swallowing difficulty has been noticeable for years. She denies any diplopia, dizziness, headache, speech difficulty, numbness, and weakness. She also notes ongoing severe restless legs at night. She did not pursue IV iron
infusion previously ordered. She takes oral iron but this causes severe constipation.
MRI brain 03/07/25: Subacute/chronic left romero radiata ischemic infarct.
MRI brain 03/17/25: There is a fairly prominent subacute (late) infarct involving the left basal ganglia along the putamen and adjacent deep white matter.
Carotid ultrasound 03/17/25: Less than 50% stenosis of bilateral carotid arteries.'
Past Medical History: Hyperlipidemia, hypothyroidism, vitamin D deficiency, hypertension, cervical degenerative disease, osteopenia, BPPV, vestibular neuritis, drusen of macula of both eyes, pancreatic duct ectasia, vertebrobasilar dolicchoectasia
Surgical History: cataract surgery
Family History: Father-heart disease, [place]; mother-hypertension, heart disease; brother-hypertension, [place]
Social History: Patient lives with . She does not smoke. She does drink wine socially.
Allergies: NKDA
Home Medications: see below
Review of Symptoms:
Patient denies any fever, headache, chest pain, shortness of breath, reports diarrhea or symptoms.
�
Vital Signs: see below
Physical Exam:
The patient is afebrile, in no acute distress, no SOB.
Neurologic Examination:
The patient is awake, alert and oriented x 3. She is able to follow commands and answer questions appropriately. There is no aphasia or dysarthria. On cranial nerve assessment, pupils are 3 mm bilateral, round and reactive to light and
accommodation. Visual mccollum are full. Extraocular movements are intact. Facial sensations are intact and bilaterally symmetrical, there is no facial asymmetry. Hearing is intact bilaterally to normal conversation volume. Tongue palate and uvula
are midline. Sternocleidomastoid strengths are full bilaterally. Motor strengths are 5/5 bilateral upper and lower extremities on medical research [place] scale. There is no drift or involuntary movement noted. Sensations of light touch intact and
bilaterally symmetrical. There was no extinction noted on double simultaneous stimulation. Coordination is intact by finger to nose bilaterally.
Lab Results: see below
Current Neuro Imaging:
CT head 04/25/2025
No acute intracranial abnormality.
Previous Neuro Imaging:
MRI brain 03/07/25: Subacute/chronic left romero radiata ischemic infarct.
MRI brain 03/17/25: There is a fairly prominent subacute (late) infarct involving the left basal ganglia along the putamen and adjacent deep white matter.
Carotid ultrasound 03/17/25: Less than 50% stenosis of bilateral carotid arteries.'
Impression:
FOX BHAGAT is a 79 year old F who has presented to the hospital with diarrhea and generalized weakness.
Differentials for the patient's presentation include:
1. adverse effects from levetiracetam
2. metabolic abnormality, known low ferritin
3. not likely acute stroke
Recommendations:
- Keppra, continue Lacosamide 200 mg twice a day
-resume clopidogrel as ASA was shown not to be efficacious
-Monitor for seizure activity
-goal normotension
-goal normoglycemia
-continue PT/OT and evaluations
-give ferric gluconate 125 mg IV once
-DVT prophylaxis
Discussed patient care with patient, family, nursing and neurologist.
Medication and Allergies
Home Medications
Home Medications
�Medication �Instructions �Recorded
aspirin 81 mg tablet,delayed 81 mg PO HS Blood Clot 01/26/18
release Prevention/Tx
levothyroxine 50 mcg tablet 50 mcg PO DAILY AT 0700 Thyroid 01/26/18
meclizine 25 mg tablet 25 mg PO Q8HPRN PRN dizzy 01/26/18
atorvastatin 40 mg tablet 40 mg PO HS ##30 01/28/18
ondansetron 4 mg disintegrating 4 mg PO TIDPRN PRN nausea/vomiting 09/09/21
tablet #10 tabs
amlodipine 5 mg tablet 5 mg PO BID Blood Pressure 03/24/23
losartan 50 mg tablet 50 mg PO BID Blood Pressure 03/24/23
turmeric 400 mg capsule 1 tab PO DAILY Supplement 03/24/23
vitamins A,C,K-kgaa-gdyuaf 4,296 1 cap PO BID Supplement 03/24/23
mcg-226 mg-90 mg capsule
(PreserVision AREDS)
famotidine 40 mg tablet (Pepcid) 40 mg PO HS #7 tabs 03/27/23
ondansetron HCl 4 mg tablet 4 mg PO TID PRN nausea and 03/27/23
vomiting 3 days #10 tabs
pantoprazole 40 mg tablet,delayed 40 mg PO DAILY #30 tabs 03/27/23
release (Protonix)
cefdinir 300 mg capsule 300 mg PO Q12H 5 days #10 caps 04/03/23
Allergies
Allergies
Allergy/AdvReac Type Severity Reaction Status Date / Time
No Known Allergies Allergy Verified 07/12/23 19:27
Vital Signs / Labs
-
Vital Signs and Labs:
Temp Pulse Resp BP Pulse Ox
98.2 F 50 16 136/64 95
04/25/25 07:00 04/25/25 08:46 04/25/25 07:00 04/25/25 08:46 04/25/25 07:00
04/25/25 09:14
04/24/25 04/24/25 04/25/25
11:08 20:50 09:14
WBC 4.1 L
RBC 4.05 L 3.56 L
Hgb 11.8 L
Hct 34.1 L
MCH 33.8 H 33.1 H
Absolute Lymphs (auto) 0.9 L 1.0 L
Lymphocytes % 13.6 L
Monocytes % 14.2 H
Sodium 133 L
Potassium 5.5 H
Carbon Dioxide 20 L
ALT 47 H
Urine Ketones 3+ A
Leukocyte Esterase Rfl 3+ A
Urine RBC 3-6 A
Urine WBC (Reflex) 11-15 A
Urine Bacteria (Reflex) Few A
[2025-04-25] MEDS: PROTONIX 40 MG PO (08:46)
[2025-04-25] MEDS: NORVASC 2.5 MG PO (08:46)
[2025-04-25] MEDS: ROCEPHIN 1000 MG IV (08:46)
[2025-04-25] MEDS: VIMPAT 200 MG PO ×2 (08:46→19:42)
[2025-04-25] MEDS: COZAAR 50 MG PO ×2 (08:46→21:53)
[2025-04-25] MEDS: STERILE WATER FOR INJECTION 10 ML IV (08:47)
[2025-04-25] MEDS: TYLENOL 650 MG PO ×2 (08:50→19:42)
[2025-04-25 09:26] LABS: Hematocrit 34.1 % (37.0-47.0); Hemoglobin 11.8 g/dL (12.0-16.0); Mean Corp Hgb Conc. 34.6 g/dL (33.0-37.0); Mean Corpuscular Volume 95.8 fL (81.0-99.0); Nucleated Red Blood Cells % 0 %; Platelet Count 160 10^3/uL (130-400); Red Cell Dist. Width 11.8 % (11.5-14.5)
[2025-04-25 10:17] LABS: Blood Urea Nitrogen 7 mg/dl (7-17); Calcium 8.7 mg/dl (8.4-10.2); Carbon Dioxide 21 mmol/L (22-30); Chloride 106 mmol/L (98-107); Estimated Creatinine Clearance 63 ml/min; Glucose 95 mg/dl (70-99); Iron 118 ug/dl (37-170); Magnesium 1.7 mg/dl (1.6-2.3); Potassium 4.5 mmol/L (3.5-5.1); Sodium 134 mmol/L (135-145); eGFR > 60.00
[2025-04-25 10:27] LABS: Cortisol, Random 14.4 ug/dl; TSH 2.51 uIU/ml (0.47-4.68); Total Iron Binding Capacity 241 ug/dl (265-497)
[2025-04-25 10:31] LABS: Ferritin 70.7 ng/ml (11.1-264.0)
[2025-04-25 10:47] LABS: Vitamin B12 893 pg/ml (239-931)
[2025-04-25] MEDS: PLAVIX 75 MG PO (11:00)
[2025-04-25] MEDS: MAGNESIUM SULFATE 50 IV (11:01)
[2025-04-25 11:15] VITALS: BP 153/75; PULSE 55; O2SAT 97
[2025-04-25 11:28] VITALS: BP 153/78; O2SAT 97
--- NOTE | 2025-04-25 11:29 | PTOTSP ---
pt currently requires supervision to no assistance to complete simple ADLs, functional transfers, ambulation. pt does not demonstrate any acute OT deficits and should be able to functionally return home with assist. recommend continued outpatient
therapy as needed. will sign off.
--- NOTE | 2025-04-25 14:49 | W.PN.HOSP.TC ---
Addendum entered and electronically signed by Felisha Alves MD 04/25/25 15:17:
I saw and evaluated the patient independently. I reviewed the resident�s note and agree with findings and plan as documented by Dr. Iraheta.
GENERAL: well developed, well nourished, female in no apparent distress
HEENT: NC/AT
HEART: regular rate and rhythm, +S1, +S2
LUNGS : clear to auscultation bilaterally
ABDOM: soft, nontender, nondistended, + bowel sounds
EXT: no cyanosis, clubbing, or edema
NEUROLOGIC: grossly intact
Generalized weakness/nausea/anorexia/watery diarrhea--all resolved--all likely from Keppra initiation back on 03/16/25 for witnessed seizure--follows with neuro and on taper of Keppra with addition and increase of Vimpat--apprec neuro, keppra
immediately stopped and Vimpat increased--can stop IVF, Imodium PRN--cortisol/TSH/B12 all WNL, await UA C&S
Hyperkalemia--Possibly in setting of medication or electrolyte imbalance due to dehydration, but given normal EKG and asymptomatic we will continue to monitor--resolved
Hyponatremia--Again likely in setting of dehydration and poor intake--improved
History of CVA (Confirmed on MRI 03/07/20) with seizure likely as result--finished asa/plavix and now on plavix (asa was stopped as outpt)--PT/OT/speech--cont atorvastatin
Iron deficiency anemia--ferritin low normal 04/11/25--NOT anemic--HGB 13.7--iron 118, TIBC 241, %Sat 48%, ferritin 70.7--NOT iron deficient--would stop iron infusion/supplements although neuro recommending oral for RLS
Hypothyroidism--Continue levothyroxine--TSH WNL
Essential Hypertension--cont losartan/amlodipine
Hypercholesterolemia--atorvastatin
GERD--Continue pantoprazole
DVT proph-- Lovenox
CODE STATUS--DNR
Original Note:
Today's Communication/Plan
-
IV ceftriaxone 1000 mg daily for UTI: Urine culture pending
DC IV fluids, encourage p.o. intake
Stop Keppra, continue Vimpat 200 mg twice daily
No need for iron transfusions, take nighttime p.o. iron supplement
Assessment / Plan
Assessment / Plan
Januaryjus was an 79-year-old female with HTN, hypercholesterolemia, hypothyroidism, vestibular neuritis, recent stroke (most likely january), and 1 witnessed (by family) seizure currently on Keppra 500 mg twice daily (started March 17) and Vimpat [address] Tyson, who presented to ED due to a 3 to 4-week loss of appetite, anorexia, 5-6lb wt loss, generalized weakness, along with persistent watery diarrhea for the past 3 days.� EEG on 04/06/2025 was unremarkable.� She has had no seizures since March 16
and none witnessed in the hospital setting or on EEG.� MRI 03/07/2025 was remarkable for subacute-chronic infarct in the left romero radiata.� She follows with Dr. Tyson. Neurology was consulted and she was admitted to the med/surge team for further
management of her symptoms.
#Generalized weakness
#Weight loss
#Watery diarrhea, resolved
#Nausea, resolved
ISO HDS, no fever, no leukocytosis, timeline aligning with recent medication change of adding Keppra, LDL is most likely due to adverse side effect of Keppra. She came in on a taper per Dr. Tyson's office, however her symptoms continue to persist.�
Other possibility considered included infectious, endocrine (adrenal insufficiencies), or multifactorial were ruled out given isolated symptoms, unremarkable morning cortisol, normal TSH, and symptomatic improvement after stopping Keppra. In
conversation with neuro, her Keppra was stopped on 04/24/2025 and Vimpat dose was increased from 150 mg to 200 mg twice daily. On 04/25/2025, she reported an improvement in appetite, formed stool, resolution of nausea/bitter taste in mouth, and
overall feeling better.
-Consult neuro, appreciate recs
--Stop Keppra and increase dose of Vimpat from 150 mg twice daily to 200 mg twice daily
--Continue Vimpat 200 mg twice daily
--Continue Plavix 75 mg daily
--Follow-up outpatient
-DC IV fluids: NSS at 100 mL/hour given better p.o. intake
-Follow-up stool antigen
-Continue Zofran 4 mg and Imodium as needed
-PT/OT/speech consult
#Urinary tract infection
UA clean-catch 09/01/2025 positive for urine ketones, leukocyte esterase, RBC, WBC, bacteria. Urine culture is pending.
-IV ceftriaxone 1000 mg daily
-Follow-up urine culture
#Hyperkalemia, resolved
4.5 back 5.5.� Likely in setting of medication or electrolyte imbalance due to dehydration, but given normal EKG and asymptomatic we will continue to monitor.
-S/p IV fluids
#Hyponatremia
134 back 133.� Again likely in setting of dehydration and poor intake. Improved after IV fluids.
-S/p IV fluids as above
#History of CVA
Confirmed on MRI 03/07/2025
-Continue Plavix 75 mg daily: No need for aspirin 81 mg daily
-Neurology in agreement
#Iron deficiency anemia, resolved
This is reported per patient. She says she gets iron infusions per Dr. Tyson. Iron studies 04/24/2025: Iron 118, TIBC 241L, percent saturation 48, ferritin 70.7, transferrin pending
-There is no lab evidence to suggest that she needs iron transfusions. Discussed with Dr. Tyson, we will hold off iron transfusions from now.
-Rec every afternoon iron supplement.
#Hypothyroidism
-Continue levothyroxine 50 mg p.o. daily
#Hypertension
-Continue losartan 50 mg p.o. twice daily
-Continue amlodipine 2.5 mg p.o. twice daily
#Hypercholesterolemia
-Continue atorvastatin 40 mg p.o. at bedtime
#GERD
-Continue pantoprazole 40 mg daily
DVT prophylaxis: Lovenox
CODE STATUS: DNR
Anticipated Discharge: Within 24 hours (Tomorrow pending good p.o. intake, urine culture, and overall clinical improvement)
Subjective/Interval History
-
Date of Service: April 25, 2025
-Yesterday, she had 1 formed stool. As such, C. difficile could not be collected. Per nurse, she also finished her dinner (sandwich) and has had a good appetite since being here.
-Overnight she had a headache, got Ofirmev and Benadryl. Overnight provider also ordered a head CT, which was negative for acute intracranial abnormality.
-This morning, since her Keppra has been discontinued, she reports feeling a lot better energy crandall, not having diarrhea any longer, and having an appetite back. Her UA was indicative of UTI and she was started on IV Rocephin 1000 mg. We spoke
with her and daughter about continued p.o. intake and working with PT/OT, while also awaiting urine cultures. If she continues to improve, she will likely be able to go home tomorrow.
Objective Data
-
Labs:
Laboratory Results
04/25/25
09:14
WBC 4.1 L
Hgb 11.8 L
Hct 34.1 L
Plt Count 160
Sodium 134 L
Potassium 4.5
Chloride 106
Carbon Dioxide 21 L
BUN 7
Creatinine 0.5 L
Glucose 95
Calcium 8.7
Vital Signs:
Vital Signs
Temp Pulse Resp BP Pulse Ox
98.2 F 50 16 136/64 95
04/25/25 07:00 04/25/25 08:46 04/25/25 07:00 04/25/25 08:46 04/25/25 07:00
I&O
04/24/25 04/25/25 04/26/25
06:59 06:59 06:59
Intake Total 240 / 240
Balance 240 / 240
Review of Systems
-
History Source: Patient
Constitutional: Reports Weight Loss and Weakness
Physical Exam
-
General: No Apparent Distress, Comfortable, Conversant, Cachectic and Other (Sitting up in chair, conversing appropriately, with much better energy levels than yesterday)
HEENT: Normocephalic, Atraumatic and Moist Mucous Membranes
Respiratory: Clear to Auscultation and Non Labored Respirations
Cardiac: Regular Rhythm and S1/S2
GI: Soft, Nontender and Nondistended
Musculoskeletal: No Clubbing, No Cyanosis and No Edema
Skin: Warm and Dry
Psych: Calm and Intact Judgement/Insight
[2025-04-25 15:00] VITALS: BP 109/56
--- NOTE | 2025-04-25 16:11 | CM ---
Patient seen at bedside with physician on . Patient stated that she lives with her in a 2 story home. Patient has no DME prior to admission. Patient PCP is Dr. Joseph and patient uses the [facility]; [address] Patient states that she will
need updated script, for outpatient therapy. Patient has a cane that she has used occasionally prior to admission. CM will continue to follow for discharge planning needs.
Plan; home with vs VN pending medical treatment plan
[2025-04-25] MEDS: LOVENOX 40 MG SC (18:42)
[2025-04-25 19:38] VITALS: BP 143/66
[2025-04-25] MEDS: ZOFRAN ODT (ORALLY DISINTEGRATING) 4 MG PO (19:41)
--- NOTE | 2025-04-25 20:48 | W.PN.UPDATE ---
Update Note
Progress Note Update
~ 19:00 Asked to see patient regarding lovenox administration. Patient stated that after she received her dose of Lovenox this evening her lower jaw started to quiver and she immediately got a headache and nausea. Tylenol and Zofran given and
symptoms resolved. Patient stated the same thing happened the previous night when she received her lovenox dose. Lovenox on hold, SCD's ordered for DVT prophylaxis.
[2025-04-25] MEDS: LIPITOR 40 MG PO (21:53)
[2025-04-25 23:58] VITALS: BP 101/46
--- NOTE | 2025-04-26 01:00 | PTCARENOTE ---
Patient recently stopped keppra and now on vimpat. Patient thinks she may be having a reaction to lovenox. Yesterday and this evening she notices that her lip quivers (looks like lower facial tremors), gets nauseous, and headache. Vitals were taken.
Patient given PRN zofran/tylenol. Symptoms resolved within less than an hour and was reported to [employer] [employer] Marta. Lovenox was stopped and SCDs were started. Then approximately two hours later, patient c/o again of nausea and worsening headache (6). No
PRN meds available. Notified [employer] [employer] again. [employer] came to bedside to assess patient again. Will continue to monitor.
[2025-04-26] MEDS: NSS IV (02:33)
[2025-04-26] MEDS: SYNTHROID 50 MCG PO (04:36)
[2025-04-26] MEDS: TYLENOL 650 MG PO ×2 (04:40→17:53)
[2025-04-26] MEDS: ZOFRAN ODT (ORALLY DISINTEGRATING) 4 MG PO ×3 (06:24→14:57)
[2025-04-26 07:39] VITALS: BP 153/76
[2025-04-26 08:06] LABS: Hematocrit 33.3 % (37.0-47.0); Hemoglobin 11.9 g/dL (12.0-16.0); Mean Corp Hgb Conc. 35.7 g/dL (33.0-37.0); Mean Corpuscular Volume 94.9 fL (81.0-99.0); Nucleated Red Blood Cells % 0 %; Platelet Count 172 10^3/uL (130-400); Red Cell Dist. Width 11.8 % (11.5-14.5)
[2025-04-26] MEDS: MIRALAX 17 GRAMS PO (08:10)
[2025-04-26 08:13] LABS: ALT (SGPT) 42 U/L (0-35); AST (SGOT) 27 U/L (14-36); Albumin 3.7 g/dl (3.5-5.0); Alkaline Phosphatase 77 U/L (38-126); Blood Urea Nitrogen 5 mg/dl (7-17); Calcium 9.2 mg/dl (8.4-10.2); Carbon Dioxide 25 mmol/L (22-30); Chloride 103 mmol/L (98-107); Estimated Creatinine Clearance 63 ml/min; Glucose 89 mg/dl (70-99); Potassium 4.1 mmol/L (3.5-5.1); Sodium 133 mmol/L (135-145); Total Protein 6.1 g/dl (6.3-8.2); eGFR > 60.00
[2025-04-26] MEDS: SENOKOT-S 1 TABLET PO (08:15)
[2025-04-26 08:45] LABS: Magnesium 1.9 mg/dl (1.6-2.3)
--- NOTE | 2025-04-26 10:12 | CM ---
Therapy recommendation is for out patient therapy, CM will request outpatient therapy script for patient to resume prior therapy. CM will continue to follow for discharge planning needs
Plan;home with out patient therapy pending medical treatment plan
[2025-04-26] MEDS: COZAAR 50 MG PO ×2 (10:18→19:39)
[2025-04-26] MEDS: VIMPAT 200 MG PO ×2 (10:18→19:39)
[2025-04-26] MEDS: PLAVIX 75 MG PO (10:18)
[2025-04-26] MEDS: ROCEPHIN 1000 MG IV (10:19)
[2025-04-26] MEDS: PROTONIX 40 MG PO (10:19)
[2025-04-26] MEDS: STERILE WATER FOR INJECTION 10 ML IV (10:19)
[2025-04-26] MEDS: NORVASC 2.5 MG PO (10:19)
--- NOTE | 2025-04-26 11:18 | W.PN.HOSP.TC ---
Addendum entered and electronically signed by Felisha Alves MD 04/26/25 16:16:
I saw and evaluated the patient independently. I reviewed the resident�s note and agree with findings and plan as documented by Dr. Iraheta.
GENERAL: well developed, well nourished, female in no apparent distress
HEENT: NC/AT
HEART: regular rate and rhythm, +S1, +S2
LUNGS : clear to auscultation bilaterally
ABDOM: soft, nontender, nondistended, + bowel sounds
EXT: no cyanosis, clubbing, or edema
NEUROLOGIC: grossly intact
Generalized weakness/nausea/anorexia/watery diarrhea--resolved but recurred today, nauseous, not eating, zofran not helping--all likely from Keppra initiation back on 03/16/25 for witnessed seizure--apprec neuro, keppra immediately stopped and Vimpat
increased--restarted IVF--cortisol/TSH/B12 all WNL, await UA C&S
possible UTI turned out to be mixed stevenson--can likely stop ABX--? if contributing to nausea
Hyperkalemia--Possibly in setting of medication or electrolyte imbalance due to dehydration, but given normal EKG and asymptomatic we will continue to monitor--resolved
Hyponatremia--Again likely in setting of dehydration and poor intake--improved
History of CVA (Confirmed on MRI 03/07/20) with seizure likely as result--finished asa/plavix and now on plavix (asa was stopped as outpt)--PT/OT/speech--cont atorvastatin
Iron deficiency anemia--ferritin low normal 04/11/25--NOT anemic--HGB 13.7--iron 118, TIBC 241, %Sat 48%, ferritin 70.7--NOT iron deficient--would stop iron infusion/supplements although neuro recommending oral for RLS
Hypothyroidism--Continue levothyroxine--TSH WNL
Essential Hypertension--cont losartan/amlodipine
Hypercholesterolemia--atorvastatin
GERD--Continue pantoprazole
DVT proph-- Lovenox
CODE STATUS--DNR
Original Note:
Today's Communication/Plan
-
Continue to encourage p.o. intake
Follow-up urine cultures, continue IV ceftriaxone meanwhile
Okay to discharge if symptomatic improvement this afternoon
Assessment / Plan
Assessment / Plan
Sheree was an 79-year-old female with HTN, hypercholesterolemia, hypothyroidism, vestibular neuritis, recent stroke (most likely january), and 1 witnessed (by family) seizure currently on Keppra 500 mg twice daily (started March 17) and Vimpat [address] Tyson, who presented to ED due to a 3 to 4-week loss of appetite, anorexia, 5-6lb wt loss, generalized weakness, along with persistent watery diarrhea for the past 3 days.� EEG on 04/06/2025 was unremarkable.� She has had no seizures since March 16
and none witnessed in the hospital setting or on EEG.� MRI 03/07/2025 was remarkable for subacute-chronic infarct in the left romero radiata.� She follows with Dr. Tyson. Neurology was consulted and she was admitted to the med/surge team for further
management of her symptoms. Per neurology, her Keppra was stopped immediately and her Vimpat was increased from 150 mg twice daily to 200 mg twice daily.
#Generalized weakness
#Weight loss
#Watery diarrhea, resolved
#Nausea, resolved
ISO HDS, no fever, no leukocytosis, timeline aligning with recent medication change of adding Keppra, LDL is most likely due to adverse side effect of Keppra. She came in on a taper per Dr. Tyson's office, however her symptoms continue to persist.�
Other possibility considered included infectious, endocrine (adrenal insufficiencies), or multifactorial were ruled out given isolated symptoms, unremarkable morning cortisol, normal TSH, and symptomatic improvement after stopping Keppra. In
conversation with neuro, her Keppra was stopped on 04/24/2025 and Vimpat dose was increased from 150 mg to 200 mg twice daily. On 04/25/2025, she reported an improvement in appetite, formed stool, resolution of nausea/bitter taste in mouth, and
overall feeling better. Today on 04/26/2025, she reports decreased appetite and feeling worse than yesterday. We encourage p.o. intake and we will continue to monitor her labs.
-Consult neuro, appreciate recs
--Stop Keppra and increase dose of Vimpat from 150 mg twice daily to 200 mg twice daily
--Continue Vimpat 200 mg twice daily
--Continue Plavix 75 mg daily
--Follow-up outpatient
-DC IV fluids: NSS at 100 mL/hour given better p.o. intake: Continue to encourage p.o. intake
-Follow-up stool antigen
-Continue Zofran 4 mg and Imodium as needed
-PT/OT/speech consult
--PT recommending home with outpatient PT
#Urinary tract infection
UA clean-catch 09/01/2025 positive for urine ketones, leukocyte esterase, RBC, WBC, bacteria. Urine culture is pending.
-IV ceftriaxone 1000 mg daily
-Follow-up urine culture: No growth to date
#Hyperkalemia, resolved
4.5 back 5.5.� Likely in setting of medication or electrolyte imbalance due to dehydration, but given normal EKG and asymptomatic we will continue to monitor.
-S/p IV fluids
#Hyponatremia
134 back 133.� Again likely in setting of dehydration and poor intake. Improved after IV fluids.
-S/p IV fluids as above
#History of CVA
Confirmed on MRI 03/07/2025
-Continue Plavix 75 mg daily: No need for aspirin 81 mg daily
-Neurology in agreement
#Iron deficiency anemia, resolved
This is reported per patient. She says she gets iron infusions per Dr. Tyson. Iron studies 04/24/2025: Iron 118, TIBC 241L, percent saturation 48, ferritin 70.7, transferrin pending
-There is no lab evidence to suggest that she needs iron transfusions. Discussed with Dr. Tyson, we will hold off iron transfusions from now.
-Rec every afternoon iron supplement.
#Hypothyroidism
-Continue levothyroxine 50 mg p.o. daily
#Hypertension
-Continue losartan 50 mg p.o. twice daily
-Continue amlodipine 2.5 mg p.o. twice daily
#Hypercholesterolemia
-Continue atorvastatin 40 mg p.o. at bedtime
#GERD
-Continue pantoprazole 40 mg daily
DVT prophylaxis: Lovenox
CODE STATUS: DNR
Anticipated Discharge: Today (Pending better p.o. intake)
Subjective/Interval History
-
Date of Service: April 26, 2025
-Overnight, patient reported headache and nausea after getting her Lovenox dose. She was given Tylenol and Zofran with symptom relief. She suspects that she is not able to tolerate Lovenox, overnight provider held Lovenox and started SCDs.
-This morning, she is curled up in bed and stating that she 'feels worse than yesterday.'She endorses nausea despite getting her Zofran 1 hour ago and reduced appetite. She also requests MiraLAX and Colace, which she has ordered as needed. Per
nursing, she has had small formed stools every day and was able to eat lunch and dinner yesterday. I encouraged her to order breakfast and try to eat, with a plan to check in during rounds. She denies pain, dysuria, lightheadedness, vomiting,
dizziness, hallucinations, headache, or any new symptoms.
-Her urinary symptoms have improved since starting antibiotics for UTI.
Objective Data
-
Labs:
Laboratory Results
04/26/25
07:47
WBC 4.9
Hgb 11.9 L
Hct 33.3 L
Plt Count 172
Sodium 133 L
Potassium 4.1
Chloride 103
Carbon Dioxide 25
BUN 5 L
Creatinine 0.6
Glucose 89
Calcium 9.2
Total Bilirubin 0.5
AST 27
ALT 42 H
Alkaline Phosphatase 77
Vital Signs:
Vital Signs
Temp Pulse Resp BP Pulse Ox
97.5 F 54 18 152/76 96
04/26/25 07:39 04/26/25 10:18 04/26/25 07:39 04/26/25 10:18 04/26/25 07:39
I&O
04/25/25 04/26/25 04/27/25
06:59 06:59 06:59
Intake Total 240 / 240 1500 / 1500
Balance 240 / 240 1500 / 1500
Review of Systems
-
History Source: Patient
All other systems: Reviewed and negative
Constitutional: Reports Weight Loss and Weakness
Abdomen/GI: Reports Nausea
Physical Exam
-
General: Chills and Cachectic
HEENT: Normocephalic, Atraumatic and Moist Mucous Membranes
Respiratory: Clear to Auscultation and Non Labored Respirations
Cardiac: Regular Rhythm and S1/S2
GI: Soft, Nontender and Nondistended
Musculoskeletal: No Clubbing, No Cyanosis and No Edema
Skin: Warm and Dry
Neuro: AO x 3
Psych: Calm and Intact Judgement/Insight
[2025-04-26] MEDS: D5/0.45%NACL 1000 IV ×2 (13:21→23:24)
--- NOTE | 2025-04-26 14:12 | CM ---
Patient seen at bedside on with physician. Patient present as well as daughter and stated that patient was not feeling well this am. Patient plan is for discharge home with outpatient vs VN follow up with therapy. CM will continue to
follow for discharge planning needs.
Plan;home with VN vs outpatient therapy.
[2025-04-26 15:15] VITALS: BP 160/78
[2025-04-26] MEDS: COMPAZINE 10 MG IV (18:43)
[2025-04-26] MEDS: LIPITOR 40 MG PO (21:54)
[2025-04-26 23:27] VITALS: BP 113/51
[2025-04-27] MEDS: SYNTHROID 50 MCG PO (06:35)
[2025-04-27 07:00] VITALS: BP 150/69
[2025-04-27 07:36] LABS: Hematocrit 32.3 % (37.0-47.0); Hemoglobin 11.7 g/dL (12.0-16.0); Mean Corp Hgb Conc. 36.2 g/dL (33.0-37.0); Mean Corpuscular Volume 93.9 fL (81.0-99.0); Nucleated Red Blood Cells % 0 %; Platelet Count 179 10^3/uL (130-400); Red Cell Dist. Width 11.6 % (11.5-14.5)
[2025-04-27 08:07] LABS: ALT (SGPT) 40 U/L (0-35); AST (SGOT) 28 U/L (14-36); Albumin 3.5 g/dl (3.5-5.0); Alkaline Phosphatase 77 U/L (38-126); Blood Urea Nitrogen 2 mg/dl (7-17); Calcium 8.8 mg/dl (8.4-10.2); Carbon Dioxide 25 mmol/L (22-30); Chloride 101 mmol/L (98-107); Estimated Creatinine Clearance 63 ml/min; Glucose 125 mg/dl (70-99); Magnesium 1.7 mg/dl (1.6-2.3); Potassium 4.0 mmol/L (3.5-5.1); Sodium 131 mmol/L (135-145); Total Protein 5.9 g/dl (6.3-8.2); eGFR > 60.00
[2025-04-27] MEDS: VIMPAT 200 MG PO ×2 (09:03→20:13)
[2025-04-27] MEDS: MIRALAX 17 GRAMS PO (09:10)
[2025-04-27] MEDS: SENOKOT-S 1 TABLET PO (09:10)
[2025-04-27] MEDS: D5/0.45%NACL 1000 IV (09:13)
[2025-04-27] MEDS: COZAAR 50 MG PO ×2 (09:43→20:13)
[2025-04-27] MEDS: PROTONIX 40 MG PO (09:43)
[2025-04-27] MEDS: PLAVIX 75 MG PO (09:43)
[2025-04-27] MEDS: NORVASC 2.5 MG PO (09:57)
[2025-04-27] MEDS: COMPAZINE 10 MG IV (10:26)
--- NOTE | 2025-04-27 11:01 | W.PN.NEURO.1 ---
Addendum entered and electronically signed by Roshan Tyson MD 04/27/25 11:51:
Studies reviewed.
I have personally examined the patient. I reviewed and agree with the ENGINEERING SPECIALIST TECHNICIAN's Note.
My addenda:
Awake, alert, interactive. No acute distress.
Speech intact.
No tremor.
Extra-ocular movements grossly intact.
Facial movements full and symmetric. Hearing intact to normal conversational volume.
Normal UE movements bilaterally.
Neck: full ROM.
Chest: no dyspnea
Heart: no JVD
Ext: (-) Clubbing, (-) Cyanosis, (-) Edema
IMPRESSIONS/RECOMMENDATIONS:
Abrupt onset of generalized weakness most likely secondary to adverse reaction to levetiracetam
Continue lacosamide 200 mg twice a day, changed to by mouth when possible
Continue clopidogrel
Continue nighttime oral supplementation due to prior low ferritin levels
Reviewed at length for 40 minutes was the likelihood that the patient will require 72 hours after initiation of lacosamide at its current level before absolute tolerance of the medication. If she continues to not tolerate lacosamide at that time,
will need to find alternative therapy or lower dosing
D/W patient / family / nursing
All questions answered.
Will continue to follow as outpatient.
Original Note:
Today's Communication / Plan
-
.
Neuro Assessment/Plan
Assessment
IMPRESSIONS/RECOMMENDATIONS:
Abrupt onset of generalized weakness in a patient with a PMH of stroke and seizure with initiation of levetiracetam one month ago
Most likely secondary to significant side effect of levetiracetam in this patient
Plan
-Continue lacosamide 200mg twice a day, change from IV to PO when able to tolerate a diet
-If patient has intolerable symptoms on lacosamide after the next 72 hours, will need to stop this. Next alternative medication would be lamotrigine.
-Avoid levetiracetam in the future.
-Continue clopidogrel 75mg daily.
-Continue oral iron supplement for hx of low ferritin level and restless legs syndrome, currently well-controlled.
-Physical therapy evaluations.
-Follow-up with Neurology as an outpatient in 2-3 weeks.
Subjective/Objective
Subjective Data
Date of Service: April 27, 2025
Patient reports feeling severely unwell yesterday (04/26/25) but she started to feel better last night and today (04/26/25) feels much better. She slept well for the first time in several days. She denies any headache, dizziness, vision changes,
speech/swallow difficultly, numbness, and focal weakness. She still has not been able to eat or drink much.
Objective Data
Vital Signs
Temp Pulse Resp BP Pulse Ox
97.2 F 55 12 150/69 97
04/27/25 07:00 04/27/25 07:00 04/27/25 07:00 04/27/25 07:00 04/27/25 07:00
Lab Results
04/27/25 07:19
04/27/25 07:33
Sodium Cancelled 04/27/25 07:33
Potassium Cancelled 04/27/25 07:33
BUN Cancelled 04/27/25 07:33
Glucose Cancelled 04/27/25 07:33
Calcium Cancelled 04/27/25 07:33
Vitamin B12 893 pg/ml ([id number]) 04/25/25 09:14
Patient Allergies
enoxaparin (From Lovenox) Allergy (Intermediate, Verified 04/26/25 04:20)
Pharmacy to Review
Review of Systems
-
History Source: Patient
EENT: Negative Blurry Vision, Decreased Vision or Swallowing Difficulty
Respiratory: Negative Cough or Trouble Breathing
Cardiac: Negative Chest Pain or Palpitations
Abdomen/GI: Negative Nausea, Vomiting or Diarrhea
Neuro: Weakness; Negative Dizzy, Headache, Numbness, Ataxia, Tremors or Speech Problem
Physical Exam
-
General: No Apparent Distress
Eyes: No Ptosis and PERRLA
HEENT: Normocephalic and Atraumatic
Neck: Full Range of Motion
Respiratory: No Dyspnea
GI: Non-distended
Extremities: No Clubbing, No Cyanosis and No Edema
Psych: Unremarkable
Extended Neurological Exam
Mood & Affect: Mood Unremarkable and Affect Unremarkable
Attention Span & Concentration: Awake, Alert and Interactive
Memory: Unremarkable
Tremor: Hand Tremor Absent and Head Tremor Absent
Speech: Quality Unremarkable, Quantity Unremarkable and Rate of Production Unremarkable
Data Reviewed
-
CT Head: Report Reviewed and Image Reviewed
Labs: Report Reviewed
Reviewed with: Physician, Patient and Family
Medications
-
Active Medications
Generic Name Dose Route Start Last Admin
Trade Name Freq PRN Reason Stop Dose Admin
Acetaminophen 650 mg 04/24/25 22:26 04/26/25 17:53
Acetaminophen 325 Mg Tablet PO 05/22/25 22:25 650 mg
Q4HPRN PRN Administration
mild pain/GARCIA/temp>100.5
Amlodipine Besylate 2.5 mg 04/25/25 08:00 04/27/25 09:57
Amlodipine 2.5 Mg Tablet PO 05/23/25 07:59 2.5 mg
DAILY FRANKLYN Administration
Atorvastatin Calcium 40 mg 04/24/25 22:00 04/26/25 21:54
Atorvastatin (Lipitor) 40 Mg Tablet PO 05/22/25 21:59 40 mg
HS FRANKLYN Administration
Bisacodyl 10 mg 04/24/25 20:54
Bisacodyl 10 Mg Rectal Suppository RECTAL 05/22/25 20:53
[id number] PRN
constipation
Clopidogrel Bisulfate 75 mg 04/25/25 10:00 04/27/25 09:43
Clopidogrel 75 Mg Tablet PO 05/23/25 09:59 75 mg
DAILY FRANKLYN Administration
Diclofenac Sodium 0 gram 04/26/25 22:00 04/26/25 21:53
Diclofenac 1% Topical Gel 100 Gram Tube TOPICAL 05/24/25 21:59 Not Given
HS FRANKLYN
Protocol
Dextrose/Sodium Chloride 1,000 mls @ 100 mls/hr 04/26/25 13:00 04/27/25 09:13
D5/0.45%Nacl IV 1,000 mls
.Q10H FRANKLYN Administration
Lacosamide 200 mg 04/24/25 20:54 04/27/25 09:03
Lacosamide (Vimpat) 200 Mg Tablet PO 05/22/25 20:53 200 mg
BID FRANKLYN Administration
Levothyroxine Sodium 50 mcg 04/25/25 06:00 04/27/25 06:35
Levothyroxine 50 Mcg Tablet PO 05/23/25 05:59 50 mcg
DAILY@0600 FRANKLYN Administration
Loperamide HCl 2 mg 04/24/25 20:54
Loperamide 2 Mg Capsule PO 05/22/25 20:53
Q6HPRN PRN
diarrhea
Losartan Potassium 50 mg 04/24/25 20:54 04/27/25 09:43
Losartan 50 Mg Tablet PO 05/22/25 20:53 50 mg
BID FRANKLYN Administration
Meclizine HCl 25 mg 04/24/25 20:54
Meclizine 25 Mg Tablet PO 05/22/25 20:53
Q8HPRN PRN
dizzy
Pantoprazole Sodium 40 mg 04/25/25 08:00 04/27/25 09:43
Pantoprazole 40 Mg Delayed Release Tablet PO 05/23/25 07:59 40 mg
DAILY FRANKLYN Administration
Polyethylene Glycol 17 grams 04/24/25 20:54 04/27/25 09:10
Polyethylene Glycol Powder 17 Grams Packet PO 05/22/25 20:53 17 grams
DAILYPRN PRN Administration
constipation
Prochlorperazine Edisylate 10 mg 04/26/25 15:15 04/27/25 10:26
Prochlorperazine 10 Mg/2 Ml Vial IV 05/24/25 15:14 10 mg
Q6HPRN PRN Administration
n/v
Senna/Docusate Sodium 1 tablet 04/24/25 20:54 04/27/25 09:10
Docusate W/Senna (Carla-Colace) Tablet PO 05/22/25 20:53 1 tablet
BIDPRN PRN Administration
constipation
Sodium Chloride 0 flush 04/24/25 21:00
Sodium Chloride 0.9% (Flush) Syringe IV 05/22/25 20:59
PER PROTOCOL FRANKLYN
Sterile Water 10 ml 04/27/25 10:00 04/27/25 09:57
Sterile Water For Injection 10 Ml Vial IV 05/25/25 09:59 Not Given
Q24H FRANKLYN
Home Medications
�Medication �Instructions �Recorded
aspirin 81 mg tablet,delayed 81 mg PO HS Blood Clot 01/26/18
release Prevention/Tx
levothyroxine 50 mcg tablet 50 mcg PO DAILY AT 0700 Thyroid 01/26/18
meclizine 25 mg tablet 25 mg PO Q8HPRN PRN dizzy 01/26/18
atorvastatin 40 mg tablet 40 mg PO HS ##30 01/28/18
amlodipine 5 mg tablet 2.5 mg PO DAILY Blood Pressure 03/24/23
losartan 50 mg tablet 50 mg PO BID Blood Pressure 03/24/23
turmeric 400 mg capsule 1 tab PO DAILY Supplement 03/24/23
vitamins A,C,E-[id number]-[id number] 4,296 1 cap PO BID Supplement 03/24/23
mcg-226 mg-90 mg capsule
(PreserVision AREDS)
pantoprazole 40 mg tablet,delayed 40 mg PO DAILY #30 tabs 03/27/23
release (Protonix)
clopidogrel 75 mg tablet (Plavix) 75 mg PO DAILY 04/26/25
lacosamide 150 mg tablet (Vimpat) 150 mg PO BID 04/26/25
levetiracetam 500 mg tablet 500 mg PO BID 04/26/25
(Keppra)
--- NOTE | 2025-04-27 12:47 | W.PN.HOSP.TC ---
Addendum entered and electronically signed by Felisha Alves MD 04/27/25 20:21:
I saw and evaluated the patient independently. I reviewed the resident�s note and agree with findings and plan as documented by Dr. Iraheta.
GENERAL: well developed, well nourished, female in no apparent distress
HEENT: NC/AT
HEART: regular rate and rhythm, +S1, +S2
LUNGS : clear to auscultation bilaterally
ABDOM: soft, nontender, nondistended, + bowel sounds
EXT: no cyanosis, clubbing, or edema
NEUROLOGIC: grossly intact
Generalized weakness/nausea/anorexia/watery diarrhea--resolved Compazine helping--all likely from Keppra initiation back on 03/16/25 for witnessed seizure--apprec neuro, keppra immediately stopped and Vimpat increased----cortisol/TSH/B12 all WNL
possible UTI turned out to be mixed stevenson--stopped ABX--? if contributing to nausea
Hyperkalemia--Possibly in setting of medication or electrolyte imbalance due to dehydration, but given normal EKG and asymptomatic we will continue to monitor--resolved
Hyponatremia--Again likely in setting of dehydration and poor intake--improved
History of CVA (Confirmed on MRI 03/07/20) with seizure likely as result--finished asa/plavix and now on plavix (asa was stopped as outpt)--PT/OT/speech--cont atorvastatin
Iron deficiency anemia--ferritin low normal 04/11/25--NOT anemic--HGB 13.7--iron 118, TIBC 241, %Sat 48%, ferritin 70.7--NOT iron deficient--would stop iron infusion/supplements although neuro recommending oral for RLS
Hypothyroidism--Continue levothyroxine--TSH WNL
Essential Hypertension--cont losartan/amlodipine
Hypercholesterolemia--atorvastatin
GERD--Continue pantoprazole
DVT proph-- Lovenox
CODE STATUS--DNR
Original Note:
Today's Communication/Plan
-
Plan to stop mIVF after dinner tonight
Switch IV meds to PO meds tonight
Preference to Compazine over Zofran
Nutrition consulted
Possible discharge tomorrow
Assessment / Plan
Assessment / Plan
Rubina was an 79-year-old female with HTN, hypercholesterolemia, hypothyroidism, vestibular neuritis, recent stroke (most likely january), and 1 witnessed (by family) seizure currently on Keppra 500 mg twice daily (started March 17) and Vimpat [address] Tyson, who presented to ED due to a 3 to 4-week loss of appetite, anorexia, 5-6lb wt loss, generalized weakness, along with persistent watery diarrhea for the past 3 days.� EEG on 04/06/2025 was unremarkable.� She has had no seizures since March 16
and none witnessed in the hospital setting or on EEG.� MRI 03/07/2025 was remarkable for subacute-chronic infarct in the left romero radiata.� She follows with Dr. Tyson. Neurology was consulted and she was admitted to the med/surge team for further
management of her symptoms. Per neurology, her Keppra was stopped immediately and her Vimpat was increased from 150 mg twice daily to 200 mg twice daily.
#Generalized weakness
#Weight loss
#Watery diarrhea, resolved
#Nausea, resolved
ISO HDS, no fever, no leukocytosis, timeline aligning with recent medication change of adding Keppra, LDL is most likely due to adverse side effect of Keppra. She came in on a taper per Dr. Tyson's office, however her symptoms continue to persist.�
Other possibility considered included infectious, endocrine (adrenal insufficiencies), or multifactorial were ruled out given isolated symptoms, unremarkable morning cortisol, normal TSH, and symptomatic improvement after stopping Keppra. In
conversation with neuro, her Keppra was stopped on 04/24/2025 and Vimpat dose was increased from 150 mg to 200 mg twice daily. On 04/25/2025, she reported an improvement in appetite, formed stool, resolution of nausea/bitter taste in mouth, and
overall feeling better. Today on 04/26/2025, she reports decreased appetite and feeling worse than yesterday. We encourage p.o. intake and we will continue to monitor her labs.
-Consult neuro, appreciate recs
--Stop Keppra and increase dose of Vimpat from 150 mg twice daily to 200 mg twice daily
--Continue Vimpat 200 mg twice daily
--Continue Plavix 75 mg daily
--Follow-up outpatient
-DC IV fluids after dinner 04/27; Continue to encourage p.o. intake.
-Follow-up stool antigen
-STOP Zofran 4 mg; IV Compazine 10mg q6h prn --> PO Compazine 10mg q6h prn
-PT/OT/speech consulted
--PT recommending home with outpatient PT
-Nutrition consult, appreciate recs
#Urinary tract infection suspected, resolved s/p urine culture
UA clean-catch 09/01/2025 positive for urine ketones, leukocyte esterase, RBC, WBC, bacteria. Urine culture shows mixed stevenson. No need for antibiotics.
-STOP IV ceftriaxone 1000 mg daily (04/24-04/26)
-Follow-up urine culture: No growth to date.
#Hyperkalemia, resolved
4.5 back 5.5.� Likely in setting of medication or electrolyte imbalance due to dehydration, but given normal EKG and asymptomatic we will continue to monitor.
-S/p IV fluids
#Hyponatremia
134 back 133.� Again likely in setting of dehydration and poor intake. Improved after IV fluids.
-S/p IV fluids as above
#History of CVA
Confirmed on MRI 03/07/2025
-Continue Plavix 75 mg daily: No need for aspirin 81 mg daily
-Neurology in agreement
#Iron deficiency anemia, resolved
This is reported per patient. She says she gets iron infusions per Dr. Tyson. Iron studies 04/24/2025: Iron 118, TIBC 241L, percent saturation 48, ferritin 70.7, transferrin pending
-There is no lab evidence to suggest that she needs iron transfusions. Discussed with Dr. Tyson, we will hold off iron transfusions from now.
-Rec every afternoon iron supplement.
#Hypothyroidism
-Continue levothyroxine 50 mg p.o. daily
#Hypertension
-Continue losartan 50 mg p.o. twice daily
-Continue amlodipine 2.5 mg p.o. twice daily
#Hypercholesterolemia
-Continue atorvastatin 40 mg p.o. at bedtime
#GERD
-Continue pantoprazole 40 mg daily
DVT prophylaxis: Lovenox
CODE STATUS: DNR
Anticipated Discharge: Within 24 hours
Subjective/Interval History
-
Date of Service: April 27, 2025
- This morning, she reports feeling much better than yesterday. Ate some cheerios for breakfast, broth for dinner. Family still concerned about her not eating much; states she's a grazer at baseline. Rubina herself feels that her symptoms
have subsided and is eager to go home.
- Neuro also spoke to family, reassured her that it will be a few more days until the Keppra is out of her system.
- Nutrition consult placed for further recs to pt and family, PT bumped.
- At bedside, we discussed with family and plan to stop fluids after dinner and transition from IV Compazine to PO Compazine (works better for her than Zofran). IV Cftx dc'd as there is no culture evidence of UTI and she is asx today.
Objective Data
-
Labs:
Laboratory Results
04/27/25 04/27/25
07:19 07:33
WBC 4.9
Hgb 11.7 L
Hct 32.3 L
Plt Count 179
Sodium 131 L Cancelled
Potassium 4.0 Cancelled
Chloride 101 Cancelled
Carbon Dioxide 25 Cancelled
BUN 2 L Cancelled
Creatinine 0.6 Cancelled
Glucose 125 H Cancelled
Calcium 8.8 Cancelled
Total Bilirubin 0.4 Cancelled
AST 28 Cancelled
ALT 40 H Cancelled
Alkaline Phosphatase 77 Cancelled
Vital Signs:
Vital Signs
Temp Pulse Resp BP Pulse Ox
97.2 F 55 12 150/69 97
04/27/25 07:00 04/27/25 07:00 04/27/25 07:00 04/27/25 07:00 04/27/25 07:00
I&O
04/26/25 04/27/25 04/28/25
06:59 06:59 06:59
Intake Total 1500 / 1500 640 / 640
Balance 1500 / 1500 640 / 640
Review of Systems
-
History Source: Patient
All other systems: Reviewed and negative
Constitutional: Reports Weight Loss, Fatigue and Weakness
Neuro: Reports Weakness
Physical Exam
-
General: Well Developed, No Apparent Distress, Comfortable, Conversant and Cachectic
HEENT: Normocephalic, Atraumatic and Moist Mucous Membranes
Respiratory: Clear to Auscultation and Non Labored Respirations
Cardiac: Regular Rhythm and S1/S2
GI: Soft, Nontender and Nondistended
Musculoskeletal: No Clubbing, No Cyanosis and No Edema
Skin: Warm, Dry and Rash
Psych: Calm and Intact Judgement/Insight
[2025-04-27 13:32] VITALS: BP 128/75; BP 132/73; PULSE 61; O2SAT 96
[2025-04-27 13:39] LABS: Transferrin 187 mg/dL (200-360)
--- NOTE | 2025-04-27 13:55 | VNURNOTE ---
Home Health Liaison met with patient, spouse, daughter at bedside to discuss [facility] nurse/therapy, visits, schedule and homebound status. Patient is agreeable and understands that visits at home will be 2-3 x per week to assess and teach medical
management. She stated she had an outpt PT eval CIRCUS SUPERVISOR but plans on home PT for a few weeks before returning to outpt. She is aware outpt PT to be put on hold while signs on w/Home Health. Patient is aware that [facility] will contact them for start of
care in 1-2 days after discharge from . Provided contact number for [facility].
[facility] referral completed in [facility] Port.
--- NOTE | 2025-04-27 13:58 | VNURNOTE ---
Home Health Liaison met with patient, spouse, daughter at bedside to discuss [facility] nurse/therapy, visits, schedule and homebound status. Patient is agreeable and understands that visits at home will be 2-3 x per week to assess and teach medical
management. She stated she had an outpt PT eval FORM BUILDING SUPERVISOR but plans on home PT for a few weeks before returning to outpt. She is aware outpt PT to be put on hold while signs on w/Home Health. Patient is aware that [facility] will contact them for start of
care in 1-2 days after discharge from .
[facility] referral completed in Care Port.
[2025-04-27 16:31] VITALS: BP 135/73
[2025-04-27] MEDS: LIPITOR 40 MG PO (21:22)
--- NOTE | 2025-04-27 22:13 | PTCARENOTE ---
Addendum entered by Jackie Irving RN 04/27/25 22:27:
correction: PO compazine currently an active order
Original Note:
VENDING MECHANIC covering contacted regarding med clarification. Amlodopine changed from daily to HS, pt had am dose. Instructed ok to start tomorrow at HS. Also per provider note, transition to PO compazine from IV, VENDING MECHANIC to change route on active PRN order.
[2025-04-27 23:00] VITALS: BP 136/56
[2025-04-28] MEDS: SYNTHROID 50 MCG PO (05:18)
[2025-04-28 07:00] VITALS: BP 156/74
[2025-04-28 07:50] LABS: Hematocrit 33.3 % (37.0-47.0); Hemoglobin 11.9 g/dL (12.0-16.0); Mean Corp Hgb Conc. 35.7 g/dL (33.0-37.0); Mean Corpuscular Volume 94.1 fL (81.0-99.0); Nucleated Red Blood Cells % 0 %; Platelet Count 186 10^3/uL (130-400); Red Cell Dist. Width 11.8 % (11.5-14.5)
[2025-04-28] MEDS: COZAAR 50 MG PO (08:17)
[2025-04-28] MEDS: VIMPAT 200 MG PO (08:17)
[2025-04-28] MEDS: COMPAZINE 10 MG PO (08:39)
[2025-04-28 08:48] LABS: Magnesium 1.8 mg/dl (1.6-2.3)
--- NOTE | 2025-04-28 09:03 | W.PN.HOSP.TC ---
Today's Communication/Plan
-
d/c with VN
Assessment / Plan
Assessment / Plan
pt is an 79 year old female
Generalized weakness/nausea/anorexia/watery diarrhea--resolved- Compazine helping--all likely from Keppra initiation back on 03/16/25 for witnessed seizure--apprec neuro, keppra immediately stopped and Vimpat increased----cortisol/TSH/B12 all WNL
possible UTI turned out to be mixed stevenson--stopped ABX--? if contributing to nausea
Hyperkalemia--Possibly in setting of medication or electrolyte imbalance due to dehydration, but given normal EKG and asymptomatic we will continue to monitor--resolved
Hyponatremia--Again likely in setting of dehydration and poor intake--improved
History of CVA (Confirmed on MRI 03/07/20) with seizure likely as result--finished asa/plavix and now on plavix (asa was stopped as outpt)--PT/OT/speech--cont atorvastatin
Iron deficiency anemia--ferritin low normal 04/11/25--NOT anemic--HGB 13.7--iron 118, TIBC 241, %Sat 48%, ferritin 70.7--NOT iron deficient--would stop iron infusion/supplements although neuro recommending oral for RLS
Hypothyroidism--Continue levothyroxine--TSH WNL
Essential Hypertension--cont losartan/amlodipine
Hypercholesterolemia--atorvastatin
GERD--Continue pantoprazole
DVT proph-- Lovenox
CODE STATUS--DNR
Anticipated Discharge: Today
Subjective/Interval History
-
Date of Service: April 28, 2025
pt feeling better and OK for d/c
Objective Data
-
Labs:
Laboratory Results
04/28/25
07:20
WBC 4.4 L
Hgb 11.9 L
Hct 33.3 L
Plt Count 186
Vital Signs:
max temp for 24 hours
04/27/25
16:31
Temp 98.2 F
Vital Signs
Temp Pulse Resp BP Pulse Ox
97.7 F 58 14 156/74 97
04/28/25 07:00 04/28/25 07:00 04/28/25 07:00 04/28/25 07:00 04/28/25 07:00
I&O
04/27/25 04/28/25 04/29/25
06:59 06:59 06:59
Intake Total 640 / 640 480 / 480
Balance 640 / 640 480 / 480
Review of Systems
-
All other systems: Reviewed and negative
Physical Exam
-
General: Well Developed, Well Nourished and No Apparent Distress
HEENT: Normocephalic and Atraumatic
Respiratory: Clear to Auscultation; Negative Wheezes or Rhonchi
Cardiac: Regular Rhythm and S1/S2; Negative Murmur
GI: Soft, Nontender, Nondistended and Normal Bowel Sounds
Musculoskeletal: No Clubbing, No Cyanosis and No Edema
--- NOTE | 2025-04-28 09:37 | CM ---
Patient will d/c home today w/ JEFF
JEFF
[2025-04-28] MEDS: PROTONIX 40 MG PO (09:39)
[2025-04-28] MEDS: PLAVIX 75 MG PO (09:40)
[2025-04-28 11:57] LABS: ALT (SGPT) 49 U/L (0-35); AST (SGOT) 34 U/L (14-36); Albumin 3.6 g/dl (3.5-5.0); Alkaline Phosphatase 72 U/L (38-126); Blood Urea Nitrogen 5 mg/dl (7-17); Calcium 9.5 mg/dl (8.4-10.2); Carbon Dioxide 24 mmol/L (22-30); Chloride 103 mmol/L (98-107); Estimated Creatinine Clearance 63 ml/min; Glucose 94 mg/dl (70-99); Potassium 4.3 mmol/L (3.5-5.1); Sodium 131 mmol/L (135-145); Total Protein 6.1 g/dl (6.3-8.2); eGFR > 60.00
[2025-04-28 12:54] VITALS: BP 155/75
--- NOTE | 2025-04-29 07:19 | W.DCSUMMARY ---
Discharge Summary
Discharge Data
Date of Admission: 04/24/25
Date of Discharge: 04/28/25
-
Pending Results: No
Hospital Course
Primary care physician : Efra Joseph
Principal Discharge diagnosis : Generalized weakness, nausea, anorexia, diarrhea
Chronic Discharge diagnosis : History of stroke, hyperkalemia, hyponatremia, iron deficiency anemia, hypothyroidism, essential hypertension, hyperlipidemia, gastroesophageal reflux disease
Hospital Course : Patient was an 79-year-old female with a history of essential hypertension, hyperlipidemia vestibular neuritis, recent stroke in January of this year and 1 witnessed seizure by family who was started on Keppra and Vimpat. Patient
presented with a 3 to 4-week loss of appetite and anorexia with weight loss along with persistent watery diarrhea for at least 3 days prior to admission. She had a brain MRI done in early February after her family noticed that she was a bit slow to
respond and not as 'present' during their conversations. Also per family, on March 16 patient had a seizure that was witnessed by 4 daughters and 4 sons that lasted approximately 20 to 30 minutes. Daughters described the episode as mom looking off
to the distance, vomiting, going stiff with open mouth and then passing out. She was started on Keppra and Plavix and discharged the next day after being evaluated at [place] emergency department. Patient reported that since she started the Keppra,
she had a weird taste in her mouth, persistent nausea, weak appetite and was feeling weak or tired and this has been going on for 3 weeks prior to being admitted. Neurology had been tapering off the Keppra and increasing the Vimpat. Patient is not
tolerating this and was admitted.
Problem #1: Generalized weakness, nausea, anorexia, diarrhea. This was felt to be an intolerance to the Keppra. Neurology was consulted and the patient Keppra was stopped and Vimpat was continued at increased dosing. Patient was seen in
consultation by physical therapy who recommended home health. IV fluids were given and Zofran was not helping the nausea. Compazine was given and the patient felt improved from that standpoint. Plan as outlined on Darrian, April 27, 2025 was
after dinner to stop IV fluids and change all meds to oral. Reevaluation on Wednesday morning found the patient to be feeling well with pancakes for breakfast not necessarily agreeing with her. Patient felt that she was well enough to go home.
Labs were stable at that time. Home health was set up.
Problem #2: History of stroke with possible seizure. As mentioned, patient had a confirmed brain MRI done in early February which corroborated an evolving subacute to chronic infarct in the left romero radiata. She was started on aspirin and Plavix.
Aspirin was stopped as an outpatient after it was deemed not effective. Patient was continued on Plavix. Shortly thereafter as mentioned above family noticed a seizure at which point she was taken to another hospital and started on Keppra. Vimpat
was added. Patient was seen in consultation by neurology. Medication changes which include stopping Keppra and increasing Vimpat were done at their recommendation. CAT scan of her head done April 25, 2025 showed no acute intracranial abnormality.
Problem #3: Iron deficiency anemia. Patient was getting IV iron infusions for low ferritin through the neurologist office diagnosed as an outpatient. Iron studies here show iron level of 118, total iron binding capacity of 241, percent saturation
of 48, with ferritin level of 70, and hemoglobin approximately high 11-12 range. This does not constitute iron deficiency. Infusions were stopped.
Problem #4: All other medical issues. These include hypothyroidism, essential hypertension, hyperlipidemia, gastroesophageal reflux disease. These medical issues were stable during her hospitalization. Medications were continued as able.
Patient is stable for discharge home at this time with visiting nurses. If there are any questions regarding this dictation or her hospital stay, please do not hesitate to call. Our office number is [phone].
Time for discharge 37 minutes.
Discharge Plan
-
Patient Disposition: Home (Routine Discharge)
Discharge Diagnosis/Procedures: Keppra intolerance, contaminated urine specimen, hyperkalemia, hyponatremia, history of stroke, iron deficiency anemia, hypothyroidism, essential hypertension, hyperlipidemia, gastroesophageal reflux disease
Condition: Good
Diet: As tolerated
Activity: As tolerated
Driving Restrictions: Not until seen by your Dr
Bathing Restrictions: None
Other Services: VN, PT, OT and ST
Referrals:
Roshan Tyson MD [Active, Neurology] - in two to four weeks
Referral Note: Follow-up with Dr. Tyson per his guidance
Efra Joseph DO [Family Provider, [facility]] - in less than 1 week
Additional Discharge Medication Instructions: AM MEDS:Take levothyroxine daily at 6 AM
Take Protonix daily at 7 AM
Eat breakfast anywhere from 7:30 on
Rest of AM MEDS: at your discretion
PM MEDS: at your discretion
BEDTIME (HS): norvasc (amlodipine), atorvastatin (Lipitor)
Prescriptions:
New
prochlorperazine maleate 10 mg Tablet
10 mg PO Q6HPRN PRN (Reason: N/V) Qty: 14 0RF
polyethylene glycol 3350 17 gram Powder In Packet
17 g PO DAILYPRN PRN (Reason: constipation) Qty: 0 0RF
amlodipine 2.5 mg Tablet
2.5 mg PO HS Qty: 0 0RF
levothyroxine 50 mcg Tablet
50 mcg PO DAILY@0600 Qty: 0 0RF
lacosamide 200 mg Tablet
200 mg PO BID Qty: 60 0RF
Continued
meclizine 25 MG tablet
25 mg PO Q8HPRN PRN (Reason: dizzy)
atorvastatin 40 MG tablet
40 mg PO HS Qty: 30 0RF
losartan 50 mg Tablet
50 mg PO BID
PreserVision AREDS 4,296 mcg-226 mg-90 mg Capsule
1 cap PO BID
pantoprazole [Protonix] 40 mg tablet,delayed release (DR/EC)
40 mg PO DAILY Qty: 30 0RF
clopidogrel [Plavix] 75 mg Tablet
75 mg PO DAILY
Discontinued
aspirin 81 MG tablet,delayed release (DR/EC)
81 mg PO HS
levothyroxine 50 MCG tablet
50 mcg PO DAILY AT 0700
amlodipine 5 mg Tablet
2.5 mg PO DAILY
turmeric 400 mg Capsule
1 tab PO DAILY
levetiracetam [Keppra] 500 mg Tablet
500 mg PO BID
lacosamide [Vimpat] 150 mg Tablet
150 mg PO BID
Discharge Orders:
Discharge Patient (As Directed); Ordered 04/28/25
Ordered By: Felisha Alves
Discharge Date and Time
Discharge Date/Time: 04/28/25 15:45
Print Language: RWANDAN
== END 2025-04-28 15:45 | disposition home health service (06) | DRG 641 ==
LOC: 4 WEST ACU 18:40
PROVIDERS: Student in an Organized Health Care Education/Training Program; ADMITTING PHYSICIAN Internal Medicine; CONSULT PHYSICIAN Psychiatry & Neurology Neurology; EMERGENCY PHYSICIAN Emergency Medicine; FAMILY PHYSICIAN Family Medicine
DX: E87.1 Hypo-osmolality and hyponatremia (principal); E87.5 Hyperkalemia; E03.9 Hypothyroidism, unspecified; E78.00 Pure hypercholesterolemia, unspecified; I10 Essential (primary) hypertension; E86.0 Dehydration; G40.909 Epilepsy, unspecified, not intractable, without status epilepticus; R63.0 Anorexia; R19.7 Diarrhea, unspecified; H93.3X9 Disorders of unspecified acoustic nerve; D50.9 Iron deficiency anemia, unspecified; R13.10 Dysphagia, unspecified; G25.81 Restless legs syndrome; K21.9 Gastro-esophageal reflux disease without esophagitis; M85.80 Other specified disorders of bone density and structure, unspecified site; H81.10 Benign paroxysmal vertigo, unspecified ear; H35.363 Drusen (degenerative) of macula, bilateral; E55.9 Vitamin D deficiency, unspecified; T42.6X5A Adverse effect of other antiepileptic and sedative-hypnotic drugs, initial encounter; Y92.9 Unspecified place or not applicable; Z66 Do not resuscitate; Z87.891 Personal history of nicotine dependence; Z79.82 Long term (current) use of aspirin; Z79.02 Long term (current) use of antithrombotics/antiplatelets; Z79.890 Hormone replacement therapy; Z82.49 Family history of ischemic heart disease and other diseases of the circulatory system; Z86.73 Personal history of transient ischemic attack (TIA), and cerebral infarction without residual deficits
CPT/HCPCS: 70450; 80048; 80053; 81003; 81015; 82533; 82607; 82728; 82962; 83540; 83550; 83690; 83735; 84443; 84466; 84484; 85025; 87086; 93005; 96361; 96374; 97116; 97162; 97166; 99285; J2916

== ENCOUNTER 2025-04-28 21:10 | Emergency (ER) | payer MEDICARE, OTHER, SELFPAY ==
[2025-04-28 21:18] VITALS: BP 174/85
[2025-04-28 21:20] VITALS: BP 174/85
[2025-04-28 21:38] LABS: Hematocrit 34.6 % (37.0-47.0); Hemoglobin 12.4 g/dL (12.0-16.0); Mean Corp Hgb Conc. 35.8 g/dL (33.0-37.0); Mean Corpuscular Volume 94.5 fL (81.0-99.0); Nucleated Red Blood Cells % 0 %; Platelet Count 195 10^3/uL (130-400); Red Cell Dist. Width 11.9 % (11.5-14.5)
[2025-04-28 21:59] LABS: ALT (SGPT) 56 U/L (0-35); AST (SGOT) 40 U/L (14-36); Albumin 4.0 g/dl (3.5-5.0); Alkaline Phosphatase 83 U/L (38-126); Blood Urea Nitrogen 10 mg/dl (7-17); Calcium 9.0 mg/dl (8.4-10.2); Carbon Dioxide 25 mmol/L (22-30); Chloride 102 mmol/L (98-107); Glucose 128 mg/dl (70-99); Potassium 4.0 mmol/L (3.5-5.1); Sodium 134 mmol/L (135-145); Total Protein 6.5 g/dl (6.3-8.2); eGFR > 60.00
[2025-04-28 22:06] VITALS: BP 152/77
== END 2025-04-28 22:45 ==
LOC: EMR 21:10
PROVIDERS: EMERGENCY PHYSICIAN Emergency Medicine
DX: R11.2 Nausea with vomiting, unspecified (principal); Z53.21 Procedure and treatment not carried out due to patient leaving prior to being seen by health care provider
CPT/HCPCS: 80053; 85025; 93005

== ENCOUNTER 2025-04-29 09:49 | Inpatient (IN) | payer MEDICARE, OTHER, SELFPAY ==
[2025-04-29] VITALS (26 sets, daily range): BP systolic 104–168; BP diastolic 43–96; PULSE 71–112; O2SAT 93; BMI 20.3
[2025-04-29 01:24] LABS: ALT (SGPT) 54 U/L (0-35); AST (SGOT) 36 U/L (14-36); Albumin 3.9 g/dl (3.5-5.0); Alkaline Phosphatase 84 U/L (38-126); Blood Urea Nitrogen 11 mg/dl (7-17); Calcium 9.5 mg/dl (8.4-10.2); Carbon Dioxide 22 mmol/L (22-30); Estimated Creatinine Clearance 66 ml/min; Glucose 133 mg/dl (70-99); Potassium 3.7 mmol/L (3.5-5.1); Sodium 133 mmol/L (135-145); Total Protein 6.5 g/dl (6.3-8.2); eGFR > 60.00
[2025-04-29 01:46] LABS: Chloride 104 mmol/L (98-107)
--- NOTE | 2025-04-29 06:35 | ED.GENMED ---
History of Present Illness
General
Chief Complaint: Fainting/Passed Out
Source: patient, family (Daughter at bedside), previous radiology exam and previous hospital records (Recent admission April 24 to just yesterday April 28. Patient was discharged yesterday afternoon.)
Exam Limitations: none
Time Seen by Provider: 04/29/25 03:44
Nursing documentation reviewed up to this point in time: agreed with except (See below for HPI)
History of Present Illness
History of Present Illness:
This is an 79-year-old woman who resides at home with family. She was recently hospitalized April 24 to the just yesterday April 28 for evaluation of generalized weakness, nausea, anorexia, watery diarrhea. She has history of CVA as well as
newer onset seizure disorder with witnessed seizure March 16 and was started on Keppra at that time, follows with neurology.
She has longstanding history of chronic nausea which was exacerbated with initiation of Keppra. During this recent hospitalization Keppra was weaned and Vimpat dose was increased.
She received IV fluids, electrolytes normalized and discharged yesterday afternoon.
She apparently suffered a loss of consciousness at home yesterday evening and daughter was concerned for recurrent seizure however no definitive seizure activity. She denies fall. She states her mother all the sudden 'could not walk.' She was
initially brought to the ED at 21:20 PM last night but due to extended wait, family took her back home and then she arrived to the ED again via EMS an hour and a half later.
There has been no further episodes of loss of consciousness, no witnessed seizure. No falls.
She does continue with frequent nausea which according to daughter and patient is an ongoing chronic issue for a number of years and she utilizes Compazine along with Zofran, generally alternating these.
Since stroke in February patient has been maintained on Plavix, finished a course of aspirin.
Recent EEGs have been unremarkable.
Past History
Past History
ED Past Medical History: CVA, HTN, Hypercholesterolemia, Seizures, Hypothyroidism and Other (Vertigo, chronic nausea and vomiting)
ED Past Surgical History: Other (Cataract surgery)
Social History
Tobacco: Non-smoker
Alcohol: Daily (History of 1 glass of wine daily, has discontinued since starting Keppra in March 2025.)
Drug: None
Personal:
Living: with family
Employment: Retired
Family History
Family History: CAD
Phy Exam
Physical Exam
Physical Exam:
GENERAL: 79-year-old somewhat frail-appearing woman. Awake, drowsy, soft-spoken, appears in no acute distress.
EYE: Head is normocephalic, atraumatic. Pupils equal and reactive. anicteric
NECK: Supple, nontender, no meningismus, no significant adenopathy.
ENT: oral mucosa is moist. No rhinorrhea.
CARDIAC: Regular rate and rhythm. no murmur. No chest wall tenderness.
LUNGS: Clear breath sounds bilaterally, no acute respiratory distress, no wheezes/rales/rhonchi
ABDOMEN: Soft, nondistended, without focal tenderness, no r/g, no cvat. normoactive BS.
NEUROLOGICAL: Alert and oriented x3, no focal neuro deficits.
SKIN: Warm and dry, normal color, skin intact. No rash.
MUSCULOSKELETAL: No C/C/E. peripheral pulses are full and equal b/l. No palpable tenderness.
PSYCH: Normal and appropriate interaction.
Course
Orders/Labs/Results
Orders:
Orders
04/29/25 00:38
Electrocardiogram (*1) Urgent
Reason for Study: Fatigue / Weakness
EKG- Treatment ONCE
04/29/25 00:46
Comprehensive Metabolic Panel Urgent
04/29/25 00:58
CT Head W/o Iv Contrast Urgent
Comment:
Reason For Exam: double vision, syncope
04/29/25 03:56
Rapid EEG [Rapid Point of Care EEG (ED/ICU ONLY)] Q1H
Indications for use:: History of Epilepsy
04/29/25 04:19
Orthostatic VS- Treatment ONCE
04/29/25 06:34
Prochlorperazine [Compazine] 10 mg PO NOW STA
04/29/25 07:02
Case Management Consult ONCE
Case Management Consult: Long Term Placement
Requested By:: PHYSICIAN
Comment: recent hospitalization 04/24-04/28 returns after episode of 'couldn't walk' No fall. Family
fearful to take pt home. Unable to care for her.
Abnormal Lab Results
04/29/25
00:46
Sodium 133 L mmol/L
(135-145)
Creatinine 0.5 L mg/dL
(0.6-1.0)
Glucose 133 H mg/dl
(70-99)
ALT 54 H U/L
(0-35)
04/29/25 00:46
Vital Signs
Initial and Last Documented VS:
Initial Vital Signs
Temp Pulse Resp BP Pulse Ox
98.3 F 74 23 168/76 96
04/29/25 00:28 04/29/25 00:28 04/29/25 00:28 04/29/25 00:28 04/29/25 00:28
Last Documented Vital Signs
Temp Pulse Resp BP Pulse Ox
98.3 F 74 18 125/54 94
04/29/25 00:28 04/29/25 07:00 04/29/25 07:00 04/29/25 07:00 04/29/25 07:00
MDM/Problems Addressed
Differential Diagnosis Includes:
Concern for recurrent seizure, orthostasis, arrhythmia, deconditioning related to recent hospitalization.
Concern for recurrent CVA.
Electrolyte abnormality is less likely as patient was just discharged yesterday.
MDM/Problems Addressed:
Loss of consciousness, chronic nausea/vomiting, deconditioning
Family does not feel patient is able to return home.
Labs are unremarkable.
CT of the head is unremarkable. No traumatic findings. Old lacunar infarct left basal cannula. No evidence of new infarct.
security monitor shows normal sinus rhythm without ectopy.
EKG shows normal sinus rhythm, normal axis, normal intervals, unchanged from previous.
Will place bedside EEG to assess for potential seizure activity and check orthostatic vital signs.
Will continue library monitor.
Will plan for hospitalist bedside consult in the a.m. as well as case management consult. Could consider admission to [facility] for [facility] therapy, continued medication management.
Patient complains of intermittent nausea which has apparently been an ongoing issue for a number of years.
Improved with Compazine. Will continue as needed Compazine.
Chronic conditions affecting care:
CVA, seizure disorder, chronic nausea
Chronic conditions affecting care: HTN and Neurological disorder
Acute Exacerbation and/or Progression of Chronic Illness: Neurological disorder
*Radiology
Radiology exam reviewed: radiology read reviewed
*Pulse Oximetry
SaO2: 95
Oxygen Mode of Delivery: Room air
Patient hypoxic: no
*EKG
Interpreted by ED Provider?: Yes
Interpretation: normal
Comparison EKG: no changes (Unchanged from previous, yesterday)
Rate: normal
Rhythm: sinus
[place]: normal axis
Interval: normal interval
QRS Pattern: normal QRS
Ischemia: no ischemia
*Shuttle Final Inspector Interpretation
Rate: normal
Interpretation: normal
Rhythm: sinus
*Critical Care Note
Total Time (30-74mins, 75-104mins- exclusive of procedures): Not Applicable
Update Note
Update Note:
06:55
Orthostatic vital signs are negative.
Monitor continues to show normal sinus rhythm.
Bedside EEG shows no seizure activity.
Will plan for case management as well as hospitalist consult.
ED Attending Note
-
Portions of this chart may have been created with voice recognition software.� Occasional wrong word or��sound alike� substitutions may have occurred due to the inherent limitations of voice recognition software.
Discharge Plan
Departure
Discharge Problem:
Ambulatory dysfunction, Chronic nausea and vomiting
Prescriptions:
No Action
meclizine 25 MG tablet
25 mg PO Q8HPRN PRN (Reason: dizzy)
atorvastatin 40 MG tablet
40 mg PO HS Qty: 30 0RF
losartan 50 mg Tablet
50 mg PO BID
PreserVision AREDS 4,296 mcg-226 mg-90 mg Capsule
1 cap PO BID
pantoprazole [Protonix] 40 mg tablet,delayed release (DR/EC)
40 mg PO DAILY Qty: 30 0RF
clopidogrel [Plavix] 75 mg Tablet
75 mg PO DAILY
prochlorperazine maleate 10 mg Tablet
10 mg PO Q6HPRN PRN (Reason: N/V) Qty: 14 0RF
polyethylene glycol 3350 17 gram Powder In Packet
17 g PO DAILYPRN PRN (Reason: constipation) Qty: 0 0RF
amlodipine 2.5 mg Tablet
2.5 mg PO HS Qty: 0 0RF
levothyroxine 50 mcg Tablet
50 mcg PO DAILY@0600 Qty: 0 0RF
lacosamide 200 mg Tablet
200 mg PO BID Qty: 60 0RF
Referrals:
Efra Joseph DO [Family Provider, Family Practice]
Interventions
Interventions:
*Risk Screen - Suicide Last Done: 04/29/25 00:28
*General Assessment Last Done: 04/29/25 05:41
*Neglect/Abuse Screening Last Done: 04/29/25 00:28
*ED- Fall Risk Assessment Last Done: 04/29/25 00:28
WH-Osxidb-Flbmbfrjrh Assessment Last Done: 04/29/25 01:21
ED- Cardiac Assessment Last Done: 04/29/25 01:21
ED- Neurological Assessment Last Done: 04/29/25 01:21
Discharge Date and Time
Print Language: GEORGIAN
[2025-04-29] MEDS: COMPAZINE 10 MG PO (06:39)
[2025-04-29] MEDS: VIMPAT 300 MG IV (09:23)
--- NOTE | 2025-04-29 09:37 | CM ---
inventory control manager reviewed patient's chart and met with patient, patient was discharged to home yesterday with JEFF, now readmitted. inventory control manager met with patient and daughter, Felisha Villalobos at bedside. inventory control manager also spoke with physical therapy and
recommendation is for skilled placement, options reviewed with patient and daughter and they have selected [facility] home and [facility], referrals sent to both facilities.
Prior to admission, patient lives with spouse in a 2 story home, was independent with adl's and used a cane with ambulation.
PCP: Dr. Joseph
Pharmacy: [facility] on [facility]
Plan; Skilled placement, referrals sent to [facility] and [facility]
[2025-04-29] MEDS: NSS 1000 IV (12:01)
[2025-04-29] MEDS: COMPAZINE 5 MG IV (12:01)
[2025-04-29] MEDS: DILAUDID 0.25 MG IV (17:03)
[2025-04-29] MEDS: COMPAZINE 10 MG IV (17:04)
--- NOTE | 2025-04-29 17:08 | HPS.HSE ---
Addendum entered and electronically signed by Felisha Alves MD 04/29/25 18:24:
I personally performed a history and physical exam of the patient and discussed management with the resident. I reviewed the resident's note and agree with the documented findings and plan of care HPI/CC.
GENERAL: well developed, well nourished, ill appearing female
HEENT: NC/AT--No O2 requirements
HEART: regular rate and rhythm, +S1, +S2
LUNGS : clear to auscultation bilaterally
ABDOM: soft, nontender, nondistended, + bowel sounds
EXT: no cyanosis, clubbing, or edema
NEUROLOGIC: grossly intact
Generalized weakness/nausea/anorexia/watery diarrhea--initially thought intolerance to Keppra initiation back on 03/16/25 for witnessed 'seizure'--apprec neuro, keppra immediately stopped and Vimpat was increased----cortisol/TSH/B12 were all WNL,
orthostatic VS neg in ED--pt seems to get sick after she eats--? whether this could be vagal symptoms due to Gallbladder Dz but US neg--Hida ordered for AM--may need GI, would do calorie count--daughter feels Mom is now food phobic...consider psych
if testing keeps coming up neg
possible UTI turned out to be mixed stevenson--stopped ABX--? if contributing to nausea
Hyperkalemia--Possibly in setting of medication or electrolyte imbalance due to dehydration, but given normal EKG and asymptomatic we will continue to monitor--resolved
Hyponatremia--Again likely in setting of dehydration and poor intake--improved
History of CVA (Confirmed on MRI 03/07/20) with petit mal seizure likely as result (staring episode with inability to walk)--finished asa/plavix and now on plavix (asa was stopped as outpt)--PT/OT/speech--cont atorvastatin--keppra off and Vimpat
moved to IV S32--bvsikavp repeating MRI brain
moderate to severe Back pain-- Will order X ray to further evaluate, concerning as patient is above 50 with weight loss--Continue on lidocaine patch, Dilaudid as needed, and aspirin
Iron deficiency anemia--ferritin low normal 04/11/25--NOT anemic--HGB 13.7--iron 118, TIBC 241, %Sat 48%, ferritin 70.7 last admission--NOT iron deficient--would stop iron infusion/supplements although neuro recommending oral for RLS
Hypothyroidism--Continue levothyroxine--TSH WNL
Essential Hypertension--cont losartan/amlodipine
Hypercholesterolemia--atorvastatin
GERD--Continue pantoprazole
DVT proph--SCDs--lovenox caused chin twitching and pain last admission
CODE STATUS--DNR
Original Note:
Family Physician
-
Family Physician: Efra Joseph
Chief Complaint
-
Nausea/ weakness
History of Present Illness
This is an 79-year-old woman who resides at home with family. She was recently hospitalized April 24 to the just yesterday April 28 for evaluation of generalized weakness, nausea, anorexia, watery diarrhea. She has history of CVA as well as
newer onset seizure disorder with witnessed seizure March 16 and was started on Keppra at that time, follows with neurology. During this recent hospitalization Keppra was weaned and Vimpat dose was increased.
She received IV fluids, electrolytes normalized and discharged yesterday afternoon.
She apparently suffered a loss of consciousness at home yesterday evening and daughter was concerned for recurrent seizure however no definitive seizure activity. She denies fall. She states her mother all the sudden 'could not walk.' She was
initially brought to the ED at 21:20 PM last night but due to extended wait, family took her back home and then she arrived to the ED again via EMS an hour and a half later.
There has been no further episodes of loss of consciousness, no witnessed seizure. No falls.
She does continue with frequent nausea which according to daughter and patient is an ongoing chronic issue for a number of years and she utilizes Compazine along with Zofran, generally alternating these.
Since stroke in February patient has been maintained on Plavix, finished a course of aspirin.
Recent EEGs have been unremarkable.
Medical History
Past Medical History
Past Medical History: Reports CVA, HTN, Hypercholesterolemia and Hypothyroidism
Additional Past Medical History:
Vestibular neuritis
Past Surgical History: Reports Other (Cataract surgery)
Additional Past Surgical History:
Cataract surgery
Social History
Tobacco: Former Smoker (Quit over 40 years ago)
Alcohol: None
Drug: None
Personal:
Living: With Family
Employment: Retired
Family History
Family History: Not pertinent
Allergies / Home Medications
Allergies reflects when Allergies were last updated in [email or web address].
Home Medications with original date entered in [email or web address]
Allergy/Medication List:
Allergies
Allergy/AdvReac Type Severity Reaction Status Date / Time
enoxaparin (From [employer]) Allergy Intermediate Pharmacy Verified 04/29/25 00:28
to Review
Home Medications
atorvastatin 40 mg tablet 40 mg PO HS ##30 01/28/18
losartan 50 mg tablet 50 mg PO BID Blood Pressure 03/24/23
vitamins A,C,Y-vhpk-jjsyvf 4,296 mcg-226 mg-90 mg capsule (PreserVision AREDS) 1 cap PO BID Supplement 03/24/23
pantoprazole 40 mg tablet,delayed release (Protonix) 40 mg PO DAILY #30 tabs 03/27/23
clopidogrel 75 mg tablet (Plavix) 75 mg PO DAILY 04/26/25
amlodipine 2.5 mg tablet 2.5 mg PO HS #0 tabs 04/28/25
lacosamide 200 mg tablet 200 mg PO BID #60 tabs 04/28/25
levothyroxine 50 mcg tablet 50 mcg PO DAILY@0600 #0 tabs 04/28/25
prochlorperazine maleate 10 mg tablet 10 mg PO Q6HPRN PRN N/V #14 tabs 04/28/25
diclofenac sodium 1 % topical gel 2 g topical DAILYPRN PRN neck pain 04/29/25
polyethylene glycol 3350 17 gram oral powder packet 17 g PO DAILY 04/29/25
Review of Systems
-
History Source: Patient
A 12 point ROS was completed and negative except as noted: Yes
Constitutional: Reports Weight Loss
EENT: Reports No Symptoms
Respiratory: Reports No Symptoms
Cardiac: Reports No Symptoms
Abdomen/GI: Reports Nausea
: Reports No Symptoms
Musculoskeletal: Reports No Symptoms
Skin: Reports No Symptoms
Neurological: Reports Headache and Weakness
Endocrine: Reports No Symptoms
Hematologic/Lymphatic: Reports No Symptoms
Physical Exam
Vital Signs
Vital Signs
Temp Pulse Resp BP Pulse Ox
98.2 F 91 18 168/96 97
04/29/25 15:39 04/29/25 15:39 04/29/25 15:39 04/29/25 15:39 04/29/25 15:39
Physical Exam
General: Appears Chronically Ill
Respiratory: Clear
Cardiac: S1/S2 and Regular Rhythm
GI: Soft, Non Tender, Non Distended and Normal Bowel Sounds
Musculoskeletal: No Clubbing, No Cyanosis and No Edema
Skin: Warm
Neuro: AO x 3
Psych: Anxious
Laboratory Results
-
04/29/25 00:46
Laboratory Results
Total Bilirubin 0.5 mg/dl (0.2-1.3) 04/29/25 00:46
AST 36 U/L (14-36) 04/29/25 00:46
ALT 54 U/L (0-35) H 04/29/25 00:46
Alkaline Phosphatase 84 U/L (38-126) 04/29/25 00:46
Data Reviewed
-
Ultrasound: Report Reviewed by me and Discussed with Physician
Lab Data: Labs Reviewed by me and Discussed with Physician
Impression/Plan
-
Generalized weakness, nausea, anorexia, diarrhea:
- Patient is cachectic, appears chronically ill, has been losing weight
-Differential diagnosis is gastritis versus gallbladder disease versus gastroparesis versus potential gastric malignancy
- Patient has poor oral intake which was not seen before, we did ultrasound of the right upper quadrant which was negative today, neck step is HIDA scan to look for any obstruction to bile flow or gallbladder dysfunction
- Started IV Compazine 10 mg every 4 hours as needed for nausea
- Patient started on a low-fat diet
- PT/OT evaluated patient and recommended SNF
- Check orthostatic vitals twice daily
- Medication reconciliation was done to check for any for home meds which could possibly have caused generalized weakness and/or nausea
Witnessed seizure potentially petit mall seizure:
- Patient's family describes her having seizure-like symptoms today morning with a blank stare for 20 seconds, complaining that she could not walk and then passing out
- She was discontinued on Keppra during her previous admission and started on Vimpat 200 Mg which she was not able to take yesterday because of nausea and poor oral intake
- Neurology was consulted and neurologist gave her loading dose of 300 Mg Keppra with 200 Mg every 12 hours.
- Continue with PT OT
- Continue to monitor for seizure activity
- CT of the head showed no acute intracranial abnormality
History of CVA:
- Continue on Plavix and atorvastatin
- Continue PT/OT therapy
- Ordered speech therapy evaluation
moderate to severe Back pain:
- Will order X ray to further evaluate, concerning as patient is above 50 with weight loss
- Patient is complaining of moderate to severe back pain
- Continue on lidocaine patch, dialudid as needed, and aspirin
Hypothyroidism:
- Continue on Synthroid 50 mcg
Essential hypertension:
- Blood pressures 168/96, patient is asymptomatic, likely due to pain and stress, continue to observe
- Continue on losartan and amlodipine
Hyperlipidemia:
- Continue on atorvastatin
GERD:
- Continue on pantoprazole 40 Mg p.o.
\\DNR
DVT ppx- SCDs
--- NOTE | 2025-04-29 17:29 | EEGC.RPT ---
Continuous EEG Report
Recording
Start Date of Data Reviewed: 04/29/25
Start Time of Data Reviewed: 17:53
End Date of Data Reviewed: 04/29/25
End Time of Data Reviewed: 06:20
Report
Clinical Background:�79 year old woman with seizure
Introduction: An emergent EEG was done using [employer] device in the ED. duration 1 hr 21 mins
Background: In the most alert state, the PDR is 8-9 Hz in frequency with normal amplitude. There is spontaneous variability and reactivity.
Sleep: No sleep is seen.�
Focal/epileptiform: There were no focal or epileptiform discharges. No clinical or electrographic seizures occurred during this recording.
Impression: Normal EEG
--- NOTE | 2025-04-29 18:26 | W.PN.NEURO.1 ---
Today's Communication / Plan
-
Vimpat IV 200 BID
Neuro Assessment/Plan
Assessment
[employer] EEG early this am was normal
79 year old woman with epilepsy, at time of discharge yesterday Keppra would've been all out of her system and would not be the cause of her Generalized weakness/nausea/anorexia/watery diarrhea, and she would have reached steady state on Vimpat
given the changes made 3 days ago
bounced back due to seizure after vomiting up her Vimpat
This am I Loaded Vimpat 300 IV given missed dose, and she will start Vimpat 200 q12 IV this evening
she's getting additional medical/GI pathology workup for her symptoms and at discharge she will either switch back to Vimpat tablet (can't crush) or liquid based on tolerability/nausea
discussed with Dr Burrows this AM
Subjective/Objective
Subjective Data
Date of Service: April 29, 2025
seen this morning late note
79 year old woman with epilepsy, recent admit abrupt onset Generalized weakness/nausea/anorexia/watery diarrhea felt to be adverse reaction to levetiracetam which was stopped 04/25. Wednesday night all her meds were changed to PO, and yesterday morning
she tolerated her PO Vimpat. her nausea was controlled with Compazine. She went home. last night she vomited up her Vimpat and then had episode of staring spell ~20 seconds then LOC which her dtr felt resembles her usual seizure. patient thinks
she's tolerating Vimpat well, and believes that she vomited because she took all her pills all at once
Objective Data
Vital Signs
Temp Pulse Resp BP Pulse Ox
36.8 C 91 18 168/96 97
04/29/25 15:39 04/29/25 15:39 04/29/25 15:39 04/29/25 15:39 04/29/25 15:50
Lab Results
04/29/25 00:46
Sodium 133 mmol/L (135-145) L 04/29/25 00:46
Potassium 3.7 mmol/L (3.5-5.1) 04/29/25:46
BUN 11 mg/dl (7-17) 04/29/25 00:46
Glucose 133 mg/dl (70-99) H 04/29/25 00:46
Calcium 9.5 mg/dl (8.4-10.2) 04/29/25 00:46
Patient Allergies
enoxaparin (From Lovenox) Allergy (Intermediate, Verified 04/29/25 00:28)
Pharmacy to Review
Physical Exam
-
awake, alert, interactive
grossly full strength
[2025-04-29] MEDS: COZAAR 50 MG PO (20:14)
[2025-04-29] MEDS: OCUVITE SOFTGEL 1 CAP PO (20:14)
[2025-04-29] MEDS: VIMPAT 200 MG IV (21:15)
[2025-04-29] MEDS: LIPITOR 40 MG PO (21:15)
[2025-04-29] MEDS: NORVASC 2.5 MG PO (21:20)
[2025-04-30] MEDS: NSS 1000 IV ×2 (01:35→15:28)
[2025-04-30 03:19] VITALS: BP 140/61
[2025-04-30] MEDS: SYNTHROID 50 MCG PO (04:17)
[2025-04-30 07:11] LABS: Hematocrit 32.6 % (37.0-47.0); Hemoglobin 11.5 g/dL (12.0-16.0); Mean Corp Hgb Conc. 35.3 g/dL (33.0-37.0); Mean Corpuscular Volume 95.3 fL (81.0-99.0); Platelet Count 206 10^3/uL (130-400); Red Cell Dist. Width 11.8 % (11.5-14.5)
[2025-04-30 07:29] VITALS: BP 173/76
[2025-04-30 07:29] LABS: ALT (SGPT) 43 U/L (0-35); AST (SGOT) 29 U/L (14-36); Albumin 3.6 g/dl (3.5-5.0); Alkaline Phosphatase 79 U/L (38-126); Blood Urea Nitrogen 6 mg/dl (7-17); Calcium 8.9 mg/dl (8.4-10.2); Carbon Dioxide 25 mmol/L (22-30); Chloride 106 mmol/L (98-107); Estimated Creatinine Clearance 66 ml/min; Glucose 94 mg/dl (70-99); Potassium 4.0 mmol/L (3.5-5.1); Sodium 136 mmol/L (135-145); Total Protein 5.8 g/dl (6.3-8.2); eGFR > 60.00
[2025-04-30 09:45] VITALS: BP 155/91; BP 170/83; BP 176/86; PULSE 62; PULSE 66; PULSE 92
--- NOTE | 2025-04-30 09:52 | CM ---
Addendum entered by Heidy Thomason RN 04/30/25 14:34:
[facility] has accepted patient.
Original Note:
CM reviewed medical records. Patient is expressing preference for [facility]. As per hospitalist, patient is not medically ready at this time. CM will remain available.
PLAN: SNF
--- NOTE | 2025-04-30 10:37 | W.PN.NEURO.1 ---
Addendum entered and electronically signed by Roshan Tyson MD 04/30/25 16:52:
Studies reviewed.
I have personally examined the patient. I reviewed and agree with the CARE COORDINATION MANAGER's Note.
My addenda:
Awake, alert, interactive. No acute distress.
Speech intact. No tremor.
Extra-ocular movements grossly intact.
Facial movements full and symmetric. Hearing intact to normal conversational volume.
Normal UE movements bilaterally.
Neck: full ROM.
Chest: no dyspnea
Heart: no JVD
Ext: (-) Clubbing, (-) Cyanosis, (-) Edema
IMPRESSIONS/RECOMMENDATIONS:
Abrupt onset of difficulty with swallowing and recurrent episodes of nausea
Is unclear whether or not her most recent event was due to orthostatic hypotension, present by most recent testing, or due to an underlying GI dysfunction or apraxia. The sense of gastric fullness that she experiences may also be part of a overall
autonomic dysfunction
Reduce lacosamide dosing from 200 mg twice a day to 150 mg twice a day
Check CT of chest
Check acetylcholine receptor antibodies
Consider alternative medication for seizure control
Continue to follow orthostatic blood pressures
Provide abdominal binder due to orthostatic hypotension
Unable to encourage fluids due to recent hyponatremia
Consider addition of fludrocortisone
Discontinue amlodipine in hopes of reducing relative hypotension at times
Have patient maintain head of bed at 30 degrees at all times to prevent supine hypertension
Continue clopidogrel
D/W patient / family
All questions answered.
Will continue to follow patient.
Original Note:
Documented by User: Fanny Paz NP 04/30/25 13:27
Today's Communication / Plan
-
-obtain chest CT and acetylcholine receptor antibodies to rule out myasthenia gravis
-continue orthostatic VS BID, encourage fluids and abdominal binder, hold amlodipine
-decrease lacosamide from 200 mg to 150 mg BID for better control of side effects
-seizure precautions
-ST/PT/OT evaluations
Neuro Assessment/Plan
Assessment
79 year old woman with history of CVA (Confirmed on MRI 03/07/20) and epilepsy. She has history of CVA as well as newer onset seizure disorder with witnessed seizure March 16 and was started on Keppra at that time, follows with neurology. During this
recent hospitalization Keppra was weaned and Vimpat dose was increased. She returned to ED yesterday after she had a seizure after vomiting up her Vimpat. Yesterday was loaded Vimpat 300 IV given missed dose, and started on Vimpat [address]: No acute intracranial abnormality noted. Stable small old infarct.
Lumbar xray: Mild left scoliosis. No compression deformity. Minor degenerative retrolisthesis of L4 and L3. Advanced degenerative disc space narrowing with endplate sclerosis and osteophyte formation at L1-2, L2-3, L3-4. Multilevel bilateral facet
narrowing, sclerosis, and hypertrophy.
Sacral/coccyx Xray: Mild asymmetric right SI joint narrowing with mild joint margin sclerosis, consistent with mild asymmetric arthritis. On the lateral projection, there is mild cortical irregularity at the inferior margin of the first coccygeal
segment, similar to prior CT examination, which may be developmental or related to remote trauma. Otherwise, no radiographically demonstrable acute fracture. No osteolytic or blastic lesion. No presacral soft tissue swelling is radiographically
evident.
EEG: normal
Plan
Impressions: nausea and weakness initially thought to be side effect of Levetiracetam but continues with symptoms on Lacosamide, also found to have orthostatic hypotension
-obtain chest CT and acetylcholine receptor antibodies to rule out myasthenia gravis
-continue orthostatic VS BID, encourage fluids and abdominal binder, hold amlodipine
-decrease lacosamide from 200 mg to 150 mg BID for better control of side effects
-seizure precautions
-ST/PT/OT evaluations
All questions encouraged and answered, plan of care discuss with Dr. Tyson, patient and family
Subjective/Objective
Subjective Data
Date of Service: April 30, 2025
Daughter at bedside, patient continues to feel nauseous and full. States she has been losing weight all year 124lbs to 116lbs. Has been having swallowing issues which is worse at night for about 2-3 years and follows with GI. Also mentions issues
with blurry vision at times.
Objective Data
Vital Signs
Temp Pulse Resp BP Pulse Ox
97.8 F 62 18 173/76 96
04/30/25 07:29 04/30/25 07:29 04/30/25 07:29 04/30/25 07:29 04/30/25 07:29
Lab Results
04/30/25 06:41
04/30/25 06:41
Sodium 136 mmol/L (135-145) 04/30/25 06:41
Potassium 4.0 mmol/L (3.5-5.1) 04/30/25 06:41
BUN 6 mg/dl (7-17) L 04/30/25 06:41
Glucose 94 mg/dl (70-99) 04/30/25 06:41
Calcium 8.9 mg/dl (8.4-10.2) 04/30/25 06:41
Patient Allergies
enoxaparin (From Lovenox) Allergy (Intermediate, Verified 04/29/25 00:28)
Pharmacy to Review
Review of Systems
-
History Source: Patient
Constitutional: No Symptoms
EENT: No Symptoms Reported
Respiratory: No Symptoms
Cardiac: No Symptoms
Abdomen/GI: Nausea
Genitourinary: No Symptoms
Musculoskeletal: No Symptoms
Skin: No Symptoms
Neuro: Other (seizures)
Endocrine: No Symptoms
Data Reviewed
-
CT Head: Report Reviewed and Image Reviewed
MRI Head: Report Reviewed and Image Reviewed
EEG: Report Reviewed
Orthostatic Testing: Report Reviewed
Labs: Report Reviewed
Reviewed with: Physician, Nurse, Patient and Family
Old Records: Summarized

Documented by User: Roshan Tyson MD 04/30/25 16:47
Past History
Past History
ED Past Medical History: CVA, HTN, Hypercholesterolemia, Seizures, Hypothyroidism and Other (Vertigo, chronic nausea and vomiting)
ED Past Surgical History: Other (Cataract surgery)
Social History
Tobacco: Non-smoker
Alcohol: Daily (History of 1 glass of wine daily, has discontinued since starting Keppra in March 2025.)
Drug: None
Personal:
Living: with family
Employment: Retired
Family History
Family History: CAD
--- NOTE | 2025-04-30 10:39 | W.PN.UPDATE ---
Update Note
Progress Note Update
I saw and evaluated the patient. I reviewed the resident�s note and agree with findings and plan as documented in the resident�s note.
No new complaints.
Gen: NAD, AAOx3, appears chronically ill and malnourished.
Eyes: EOMI, PERRLA, no scleral icterus.
Neck: supple.
CV: RRR, +S1/S2, no m/r/g.
Resp: CTAB, no rales, wheezes, or rhonchi.
Abd: +BS, soft, NT, ND
Skin: No rashes.
Neuro: CN 2-12 intact, non-focal.
Psych: Normal mood and affect.
CT brain: No acute intracranial abnormality noted. Stable small old infarct.
Abd U/S: Unremarkable abdominal ultrasound.
EEG: Normal EEG.
L-spine Xray: Mild left scoliosis. No compression deformity. Minor degenerative retrolisthesis of L4 and L3. Advanced degenerative disc space narrowing with endplate sclerosis and osteophyte formation at L1-2, L2-3, L3-4. Multilevel bilateral facet
narrowing, sclerosis, and hypertrophy.
Sacral/coccyx Xray: Mild asymmetric right SI joint narrowing with mild joint margin sclerosis, consistent with mild asymmetric arthritis. On the lateral projection, there is mild cortical irregularity at the inferior margin of the first coccygeal
segment, similar to prior CT examination, which may be developmental or related to remote trauma. Otherwise, no radiographically demonstrable acute fracture. No osteolytic or blastic lesion. No presacral soft tissue swelling is radiographically
evident.
Generalized weakness/nausea/anorexia/watery diarrhea:
-initially thought intolerance to Keppra initiation on 03/16/25 for witnessed 'seizure.' Neuro saw at that time. Keppra was immediately stopped and Vimpat was increased
-cortisol/TSH/B12 all normal
-orthostatic VS neg in ED
-pt seems to get sick after she eats. Question whether this could be vagal symptoms due to vomiting due to GB disease (with NEG U/S).
-check HIDA
-c/s GI
h/o CVA February 2020:
-complicated by with petit mal seizure (staring episode with inability to walk), currently on IV Vimpat
-cont Plavix/statin
-neuro following
Other problems:
Hyponatremia, resolved
Hypokalemia, resolved
Back pain: Xray with spinal OA, pain control
Hypothyroidism: cont Levoxyl
Essential HTN: cont losartan/amlodipine
HLD: cont statin
GERD: Cont PPI
Pt's son updated at bedside.
DVT proph: SCDs as lovenox caused chin twitching and pain last admission
DNR
Total time spent on today's encounter was 50 minutes which included time spent in counseling the patient/family regarding diagnosis and treatment plan as listed above, goals of care, and symptom management. Case was discussed with nursing staff,
specialists, and care coordinators/case management. All labs and imaging personally reviewed by me. Remainder the time spent in detailed review of previous records, lab data, imaging, and other medical provider documentation.
[2025-04-30] MEDS: VIMPAT IV (11:10)
[2025-04-30] MEDS: PROTONIX 40 MG PO (12:44)
[2025-04-30] MEDS: PLAVIX 75 MG PO (12:44)
[2025-04-30] MEDS: MIRALAX 17 GRAMS PO (12:45)
[2025-04-30] MEDS: VIMPAT 150 MG IV ×2 (12:45→23:52)
[2025-04-30] MEDS: LIDOCAINE 4% PATCH TOPICAL (12:46)
[2025-04-30 13:42] VITALS: BMI 20.3
--- NOTE | 2025-04-30 13:42 | PTCARENOTE ---
Patient had change in rhythm during Vimpat administration; questionable artifact; patient had been sinus alvaro; patient with tremors; patient sounded tachy upon auscultation; patient reports that she feels ok; Dr. Brooks notified; no new orders.
--- NOTE | 2025-04-30 13:50 | W.PN.HOSP.TC ---
Today's Communication/Plan
-
Per neuro, decrease Vimpat 200 mg twice daily to 1 current twice daily
Follow-up HIDA scan
GI consulted, appreciate recs
Assessment / Plan
Assessment / Plan
Sheree was an 79-year-old female with HTN, hypercholesterolemia, hypothyroidism, vestibular neuritis, recent stroke (seen on MRI 03/07/2025), and seizures (witnessed by family, 2 unremarkable recent EEGs) currently on Vimpat 200 mg twice daily
Jah who presents as a bounce back after a seizure episode witnessed by family. Of note, she was admitted to the hospital 04/24/2020-04 28 2025 after presenting to ED due to a 3 to 4-week loss of appetite, anorexia, 5-6lb wt loss, generalized
weakness, along with persistent watery diarrhea (none in the hospital), all thought to be due to Keppra, which was switched to Vimpat the admission.� She follows with Dr. Tyson. Neurology and GI was consulted and she was admitted to [facility] [place] for
further workup and management.
#Generalized weakness
#Nausea
#Anorexia
- GI consulted, appreciate recs
- Nutrition consulted last admission, reconsider
- Negative ultrasound: Follow-up HIDA scan
- Cortisol/TSH/B12 all WNL
- Continue orthostatic vital sign twice daily
--Encourage fluids, abdominal binder
- Consider psych consult if all GI studies negative
- IV Compazine as needed
- Diet: Low-fat diet plus vitamin C/vitamin D p.o. twice daily
- NSS at 1000 mL at 80 mL/h
#Seizures
#Keppra intolerance
#History of CVA
- Neurology following, appreciate recs
--Seizure precautions
--ST/OT/PT consults placed
--Decrease Vimpat from 200 mg to 150 mg twice daily
--Get chest CT and acetylcholine receptor antibodies to rule out myasthenia gravis
- CTM
- Continue clopidogrel 75 mg p.o. daily and atorvastatin 40 mg p.o. at bedtime
#Lumbar back pain
Lumbar spine and sacral/coccyx x-ray showing spinal OA
- Continue pain control and lidocaine patches as needed
#Hypothyroidism
- Continue home levothyroxine 50 mcg p.o. daily
#Essential hypertension
- Continue losartan 50 mg p.o. twice daily and amlodipine 2.5 mg p.o. at bedtime
#GERD
- Continue pantoprazole 40 mg p.o. daily
DVT prophylaxis: SCDs
CODE STATUS: DNR
Anticipated Discharge: 24 - 48 hours (Pending consults workup and clinical improvement)
Subjective/Interval History
-
Date of Service: April 30, 2025
-This morning, she is curled up in position with covers over her. She denies nausea, but endorses being hungry. She is n.p.o. in preparation for HIDA scan. Daughter Winifred at bedside.
- She continues to feel lethargic, weak, and have back pain.
Objective Data
-
Labs:
Laboratory Results
04/30/25
06:41
WBC 7.0
Hgb 11.5 L
Hct 32.6 L
Plt Count 206
Sodium 136
Potassium 4.0
Chloride 106
Carbon Dioxide 25
BUN 6 L
Creatinine 0.5 L
Glucose 94
Calcium 8.9
Total Bilirubin 0.5
AST 29
ALT 43 H
Alkaline Phosphatase 79
Vital Signs:
Vital Signs
Temp Pulse Resp BP Pulse Ox
97.8 F 62 18 173/76 96
04/30/25 07:29 04/30/25 07:29 04/30/25 07:29 04/30/25 07:29 04/30/25 07:29
I&O
04/29/25 04/30/25 05/01/25
06:59 06:59 06:59
Intake Total 460 / 460
Balance 460 / 460
Review of Systems
-
History Source: Patient
All other systems: Reviewed and negative
Constitutional: Reports Weight Loss, Fatigue and Weakness
Abdomen/GI: Reports Nausea
Psych: Reports Sad
Physical Exam
-
General: No Apparent Distress, Conversant and Cachectic
HEENT: Normocephalic, Atraumatic and Moist Mucous Membranes
Respiratory: Clear to Auscultation and Non Labored Respirations
Cardiac: Regular Rhythm and S1/S2
GI: Soft, Nontender and Nondistended
Musculoskeletal: No Clubbing, No Cyanosis and No Edema
Skin: Warm, Dry and Rash
Psych: Calm and Intact Judgement/Insight
--- NOTE | 2025-04-30 14:26 | CON.GI ---
Consultation
-
Date/Time Consultation Requested: 04/30/25
Date/Time Consultation Performed: 04/30/25
Requesting Provider:
Performing Provider:
Reason for Consultation: n/v
Medical History
Chief Complaint / HPI
Chief Complaint: nausea
History of Present Illness:
This is a 79-year-old female with past medical history of CVA, seizure disorder, RLS, HTN, Hypercholesterolemia and Hypothyroidism, Vestibular neuritis, chronic nausea, diverticulosis, colon polyps, chronic constipation who was admitted last night
with altered mental status. She did have a CVA in February 2025 and then had seizures in March and was started on Keppra. She was recently admitted to [place] on 04/24/2025 with symptoms of anorexia, nausea, vomiting and diarrhea she had workup with
neurology was ruled out for recurrent CVA she had a CT head both during prior admission and again this admission which were both negative other than an old infarct and it was thought to be side effects from Keppra so she was weaned off of it and was
started on Vimpat. Also her TSH and cortisol levels were normal. Lipase and LFTs were also normal other than mildly elevated ALT. Ultrasound of the abdomen and HIDA scan were negative. yesterday apparently she had lost consciousness and patient
family thought she was having another seizure so was brought back to the emergency room and she received a loading dose of Vimpat and has been seen by neurology also. She is now at baseline with mentation. She does suffer from chronic nausea and
had been seen by Dr. Landers in 2019 for nausea and then subsequently has been seen Dr. Mccarthy since 2022 and has had extensive workup for nausea including endoscopy, gastric emptying scan and MR enterography which did not reveal any clear source of
the nausea.She does complain of mild epigastric discomfort with symptoms of nausea especially after she eats with early satiety. Her gastric emptying scan in 2022 showed a mild delay at 2 hours but was normal at 4 hours. she has been on PPI on
pantoprazole prior to admission. She is also on Plavix. She had been on chronic NSAID use in the past which she has been off of now. she also suffers from chronic constipation and diverticular associated spasm. Her constipation has improved with
MiraLAX and senna. No rectal bleeding or melena.
Past Medical History
Past Medical History: Other (CVA, seizure disorder, RLS, HTN, Hypercholesterolemia and Hypothyroidism, Vestibular neuritis)
Past Surgical History: Other (Cataract)
Social History
Tobacco: Former Smoker
Alcohol: None
Drug: None
Living: With Family
Family History
Family History: Reviewed & Not Pertinent
Allergies / Home Medications
Allergy/AdvReac Type Severity Reaction Status Date / Time
enoxaparin (From Lovenox) Allergy Intermediate Pharmacy Verified 04/29/25 00:28
to Review
�Medication �Instructions �Recorded
atorvastatin 40 mg tablet 40 mg PO HS ##30 01/28/18
losartan 50 mg tablet 50 mg PO BID Blood Pressure 03/24/23
vitamins A,C,A-nkeo-flysfy 4,296 1 cap PO BID Supplement 03/24/23
mcg-226 mg-90 mg capsule
(PreserVision AREDS)
pantoprazole 40 mg tablet,delayed 40 mg PO DAILY #30 tabs 03/27/23
release (Protonix)
clopidogrel 75 mg tablet (Plavix) 75 mg PO DAILY 04/26/25
amlodipine 2.5 mg tablet 2.5 mg PO HS #0 tabs 04/28/25
lacosamide 200 mg tablet 200 mg PO BID #60 tabs 04/28/25
levothyroxine 50 mcg tablet 50 mcg PO DAILY@0600 #0 tabs 04/28/25
prochlorperazine maleate 10 mg 10 mg PO Q6HPRN PRN N/V #14 tabs 04/28/25
tablet
diclofenac sodium 1 % topical gel 2 g topical DAILYPRN PRN neck pain 04/29/25
polyethylene glycol 3350 17 gram 17 g PO DAILY 04/29/25
oral powder packet
Review of Systems
-
All other systems: A 12 pt ROS was Negative except as stated above in HPI
Vital Signs
Temp Pulse Resp BP Pulse Ox
97.8 F 62 18 173/76 96
04/30/25 07:29 04/30/25 07:29 04/30/25 07:29 04/30/25 07:29 04/30/25 07:29
Physical Exam
Exam
General: No Apparent Distress
HEENT: Normocephalic
Respiratory: Clear
Cardiac: S1/S2
GI: Soft, Non Distended, Normal Bowel Sounds and Tender (mild epigastric tenderness)
Musculoskeletal: No Clubbing
Skin: Warm
Neuro: Awake, Alert and Oriented
Psych: Calm
Results
Laboratory Tests
WBC 7.0 10^3/uL (4.8-10.8) 04/30/25 06:41
Hgb 11.5 g/dL (12.0-16.0) L 04/30/25 06:41
Hct 32.6 % (37.0-47.0) L 04/30/25 06:41
MCV 95.3 fL (81.0-99.0) 04/30/25 06:41
Plt Count 206 10^3/uL (130-400) 04/30/25 06:41
Sodium 136 mmol/L (135-145) 04/30/25 06:41
Potassium 4.0 mmol/L (3.5-5.1) 04/30/25 06:41
Chloride 106 mmol/L (98-107) 04/30/25 06:41
Carbon Dioxide 25 mmol/L (22-30) 04/30/25 06:41
BUN 6 mg/dl (7-17) L 04/30/25 06:41
Creatinine 0.5 mg/dL (0.6-1.0) L 04/30/25 06:41
Calcium 8.9 mg/dl (8.4-10.2) 04/30/25 06:41
Total Bilirubin 0.5 mg/dl (0.2-1.3) 04/30/25 06:41
AST 29 U/L (14-36) 04/30/25 06:41
ALT 43 U/L (0-35) H 04/30/25 06:41
Alkaline Phosphatase 79 U/L (38-126) 04/30/25 06:41
Diagnostic Image Results:
04/30/2025 HIDA
IMPRESSION: No evidence for cystic duct obstruction or common bile duct obstruction.
04/29/2025 US abdomen
IMPRESSION: Unremarkable abdominal ultrasound.
05/28/2023 MRE
IMPRESSION:
1. There is a more focal area of bowel wall thickening and luminal narrowing in the sigmoid colon in the posterior aspect of the pelvis with mild hyperenhancement of this segment of nondistention. Additionally there is a more distended sigmoid
colon just proximal to this area of luminal narrowing, suggesting partial obstruction. Direct visualization is recommended to exclude an occult process, which could be due to inflammation, infection or neoplasm.
2. There is no other focal area of abnormal enhancement or bowel wall thickening. No bowel obstruction.
3. Scoliosis. Degenerative disk and joint disease. This distorts the retroperitoneum which is otherwise Unremarkable.
4. Solid organs within the limits of normal.
04/21/2023 GES
IMPRESSION: Findings suggesting mild delayed gastric emptying at 2 hours, although within the limits of normal at 4 hours.
Prior GI Procedures:
EGD: 03/26/2023 normal esophagus, small hiatal hernia, gastritis, normal duodenum, Gastric biopsies negative for H. pylori
Colonoscopy: 06/16/2023 4 mm transverse colon polyp-tubular adenoma, 6 mm descending colon polyp-tubular adenoma, diverticulosis in the sigmoid and descending colon with spasm, internal hemorrhoids,
random colon biopsies negative for microscopic colitis
04/25/25
09:14
Vitamin B12 893
TSH 2.51
Random Cortisol 14.4
Assessment / Plan
-
1.Chronic symptoms of nausea since 2019 but recently likely exacerbated by Keppra and now Vimpat and also recent CVA and seizure disorder. Symptoms could also be exacerbated by underlying anxiety. She may have mild gastroparesis although her
gastric emptying scan in 2022 was unremarkable will consider repeat probably as outpatient. She has been seeing Dr. Mccarthy as outpatient. Continue PPI and she has been switched to Compazine as needed. Will also start her on Reglan. TSH and
cortisol levels were normal.. May need to rule out central causes also may need repeat MRI if not improved. Will also get a CAT scan to rule out possible partial small bowel obstruction although I think this is less likely. Ultrasound and HIDA
scan were normal. May need repeat EGD if symptoms persist.
2. She also has diverticular associated spasm with chronic constipation and probable IBS. Continue MiraLAX and senna as needed.
3. History of tubular adenomas in 2022 given her age no further surveillance
Over 60 minutes was spent reviewing her outpatient records extensively, prior imaging, EGD, colonoscopy and current labs and imaging and training consultant notes.
Total Time Spent with Patient (in minutes): 70
Data Reviewed
-
CT Scan: Report Reviewed by me
Ultrasound: Report Reviewed by me
MRI: Report Reviewed by me
Old Records: Reviewed
-
-
Thank you for consultation and allowing me to participate in the patient's care. Please call the waste reduction coordinator GI physician during the after hours with any questions or concerns.
[2025-04-30] MEDS: REGLAN 5 MG IV ×2 (15:28→23:53)
[2025-04-30] MEDS: OCUVITE SOFTGEL 1 CAP PO ×2 (15:28→21:09)
[2025-04-30] MEDS: COZAAR 50 MG PO ×2 (15:28→21:09)
[2025-04-30 15:36] VITALS: BP 160/84
[2025-04-30] MEDS: COMPAZINE 10 MG IV ×2 (16:17→20:26)
[2025-04-30] MEDS: OMNIPAQUE 50 ML PO (16:17)
[2025-04-30] MEDS: DILAUDID 0.25 MG IV ×2 (16:22→20:26)
[2025-04-30 19:10] VITALS: BP 175/85
[2025-04-30] MEDS: LIPITOR 40 MG PO (21:08)
[2025-04-30 23:04] VITALS: BP 156/76
[2025-05-01] VITALS (7 sets, daily range): BP systolic 139–171; BP diastolic 70–86; PULSE 73–103
[2025-05-01] MEDS: SYNTHROID 50 MCG PO (04:48)
[2025-05-01] MEDS: NSS 1000 IV ×2 (04:48→16:25)
[2025-05-01] MEDS: PROTONIX 40 MG PO (06:12)
[2025-05-01] MEDS: COMPAZINE 10 MG PO (07:51)
[2025-05-01] MEDS: LIDOCAINE 4% PATCH 1 PATCH TOPICAL (07:52)
[2025-05-01] MEDS: REGLAN 5 MG IV (07:52)
[2025-05-01 08:47] LABS: Hematocrit 33.8 % (37.0-47.0); Hemoglobin 12.4 g/dL (12.0-16.0); Mean Corp Hgb Conc. 36.7 g/dL (33.0-37.0); Mean Corpuscular Volume 94.7 fL (81.0-99.0); Nucleated Red Blood Cells % 0 %; Platelet Count 220 10^3/uL (130-400); Red Cell Dist. Width 11.7 % (11.5-14.5)
--- NOTE | 2025-05-01 08:59 | W.PN.UPDATE ---
Update Note
Progress Note Update
I saw and evaluated the patient. I reviewed the resident�s note and agree with findings and plan as documented in the resident�s note.
No new complaints.
Gen: NAD, AAOx3, appears chronically ill and malnourished.
Eyes: EOMI, PERRLA, no scleral icterus.
Neck: supple.
CV: remains RRR, +S1/S2, no m/r/g.
Resp: remains CTAB, no rales, wheezes, or rhonchi.
Abd: remains +BS, soft, NT, ND
Skin: No rashes.
Neuro: CN 2-12 intact, non-focal.
Psych: Normal mood and affect.
CT brain: No acute intracranial abnormality noted. Stable small old infarct.
Abd U/S: Unremarkable abdominal ultrasound.
EEG: Normal EEG.
HIDA: No evidence for cystic duct obstruction or common bile duct obstruction.
CT C/A/P: Markedly limited evaluation of the thoracic esophagus with this imaging modality, nondilated, cannot exclude small hiatal hernia. Mild pancreatic ductal dilatation without discrete mass identified on this somewhat limited study. Recommend
MRI/MRCP for more complete evaluation. Distal colonic diverticulosis.
L-spine Xray: Mild left scoliosis. No compression deformity. Minor degenerative retrolisthesis of L4 and L3. Advanced degenerative disc space narrowing with endplate sclerosis and osteophyte formation at L1-2, L2-3, L3-4. Multilevel bilateral facet
narrowing, sclerosis, and hypertrophy.
Sacral/coccyx Xray: Mild asymmetric right SI joint narrowing with mild joint margin sclerosis, consistent with mild asymmetric arthritis. On the lateral projection, there is mild cortical irregularity at the inferior margin of the first coccygeal
segment, similar to prior CT examination, which may be developmental or related to remote trauma. Otherwise, no radiographically demonstrable acute fracture. No osteolytic or blastic lesion. No presacral soft tissue swelling is radiographically
evident.
Generalized weakness/nausea/anorexia/watery diarrhea:
-initially thought intolerance to Keppra initiation on 03/16/25 for witnessed 'seizure.' Neuro saw at that time. Keppra was immediately stopped and Vimpat was increased
-cortisol/TSH/B12 all normal
-orthostatic VS neg in ED, POS after
-GI following, DDx of etiology of vomiting extensive and includes gastroparesis (currently on standing Reglan started 04/30/25), anxiety, AEs of AEDs, central etiology, diffuse autonomic dysfunction (as evidenced by orthostatic hypotension).
h/o CVA February 2020:
-complicated by with petit mal seizure (staring episode with inability to walk), currently on IV Vimpat
-cont Plavix/statin
-neuro following
Other problems:
Chronic lumbar back pain
Hyponatremia, mild
Hypokalemia, replete
Back pain: Xray with spinal OA, pain control
Hypothyroidism: cont Levoxyl
Essential HTN: cont losartan
HLD: cont statin
GERD: Cont PPI
Pt's daughter updated at length at bedside.
DVT proph: SCDs as lovenox caused chin twitching and pain last admission
DNR
[2025-05-01 09:03] LABS: ALT (SGPT) 44 U/L (0-35); AST (SGOT) 31 U/L (14-36); Albumin 3.9 g/dl (3.5-5.0); Alkaline Phosphatase 82 U/L (38-126); Blood Urea Nitrogen 5 mg/dl (7-17); Calcium 9.1 mg/dl (8.4-10.2); Carbon Dioxide 24 mmol/L (22-30); Chloride 102 mmol/L (98-107); Estimated Creatinine Clearance 66 ml/min; Glucose 92 mg/dl (70-99); Potassium 3.4 mmol/L (3.5-5.1); Sodium 133 mmol/L (135-145); Total Protein 6.3 g/dl (6.3-8.2); eGFR > 60.00
[2025-05-01] MEDS: MIRALAX PO (09:17)
[2025-05-01] MEDS: COZAAR 50 MG PO ×2 (09:20→20:01)
[2025-05-01] MEDS: PLAVIX 75 MG PO (09:21)
[2025-05-01] MEDS: OCUVITE SOFTGEL 1 CAP PO ×2 (09:21→20:01)
--- NOTE | 2025-05-01 09:46 | W.PN.NEURO.1 ---
Addendum entered and electronically signed by Roshan Tyson MD 05/01/25 14:58:
Studies reviewed.
I have personally examined the patient. I reviewed and agree with the INFORMATICS PHYSICIAN LIAISON's Note.
My addenda:
Awake, alert, interactive. No acute distress.
Speech intact.
No tremor.
Extra-ocular movements grossly intact.
Facial movements full and symmetric. Hearing intact to normal conversational volume.
Normal UE movements bilaterally.
Neck: full ROM.
Chest: no dyspnea
Heart: no JVD
Ext: (-) Clubbing, (-) Cyanosis, (-) Edema
IMPRESSIONS/RECOMMENDATIONS:
Abrupt worsening of gastric fullness and seizures
Continue lacosamide 150 mg twice a day, changed to by mouth when possible
Continue clopidogrel
Hold oral iron supplementation to fullness and constipation
Appreciate assistance from GI
D/W patient / family
All questions answered.
Will continue to follow as outpatient.
Original Note:
Today's Communication / Plan
-
-continue to follow orthostatic blood pressures
-maintain HOB at 30 degrees at all times to prevent supine hypertension
-continue lacosamide 150 mg BID
-seizure precautions
-continue Clopidogrel for secondary stroke prevention, not an aspirin responder
Neuro Assessment/Plan
Assessment
79 year old woman with history of CVA (Confirmed on MRI 03/07/20) and epilepsy. She has history of CVA as well as newer onset seizure disorder with witnessed seizure March 16 and was started on Keppra at that time, follows with neurology. During this
recent hospitalization Keppra was weaned and Vimpat dose was increased. She returned to ED yesterday after she had a seizure after vomiting up her Vimpat. Yesterday was loaded Vimpat 300 IV given missed dose, and started on Vimpat [address]: No acute intracranial abnormality noted. Stable small old infarct.
Lumbar xray: Mild left scoliosis. No compression deformity. Minor degenerative retrolisthesis of L4 and L3. Advanced degenerative disc space narrowing with endplate sclerosis and osteophyte formation at L1-2, L2-3, L3-4. Multilevel bilateral facet
narrowing, sclerosis, and hypertrophy.
Sacral/coccyx Xray: Mild asymmetric right SI joint narrowing with mild joint margin sclerosis, consistent with mild asymmetric arthritis. On the lateral projection, there is mild cortical irregularity at the inferior margin of the first coccygeal
segment, similar to prior CT examination, which may be developmental or related to remote trauma. Otherwise, no radiographically demonstrable acute fracture. No osteolytic or blastic lesion. No presacral soft tissue swelling is radiographically
evident.
EEG: normal
CT chest/abd/pelvis: Markedly limited evaluation of the thoracic esophagus with this imaging modality, nondilated, cannot exclude small hiatal hernia. Mild pancreatic ductal dilatation without discrete mass identified on this somewhat limited study.
Recommend MRI/MRCP for more complete evaluation. Distal colonic diverticulosis.
Plan
Impressions: nausea and weakness initially thought to be side effect of Levetiracetam but continues with symptoms on Lacosamide, also found to have orthostatic hypotension
-CT chest unrevealing
-continue to follow orthostatic blood pressures
-maintain HOB at 30 degrees at all times to prevent supine hypertension
-continue lacosamide 150 mg BID
-seizure precautions
-continue Clopidogrel for secondary stroke prevention, not an aspirin responder
All questions encouraged and answered, plan of care discuss with Dr. Tyson, patient and family
Subjective/Objective
Subjective Data
Date of Service: May 01, 2025
No acute overnight events. Nausea immediately after eating, takes 30-40 minutes for nausea to subside. Nausea comes and goes throughout the day. States she took Compazine and also felt nauseous. Can tolerate liquids without feeling nauseous.
Decreased appetite.
Objective Data
Vital Signs
Temp Pulse Resp BP Pulse Ox
97.7 F 60 16 171/79 97
05/01/25 07:00 08/19/25 09:20 05/01/25 07:00 05/01/25 09:20 05/01/25 07:00
Lab Results
05/01/25 08:32
05/01/25 08:32
Sodium 133 mmol/L (135-145) L 05/01/25 08:32
Potassium 3.4 mmol/L (3.5-5.1) L 05/01/25 08:32
BUN 5 mg/dl (7-17) L 05/01/25 08:32
Glucose 92 mg/dl (70-99) 05/01/25 08:32
Calcium 9.1 mg/dl (8.4-10.2) 05/01/25 08:32
Patient Allergies
enoxaparin (From Lovenox) Allergy (Intermediate, Verified 04/29/25 00:28)
Pharmacy to Review
Physical Exam
-
General: No Apparent Distress and Comfortable
Eyes: Round OU
HEENT: Normocephalic, Atraumatic and Anicteric
Neck: Full Range of Motion
Respiratory: No Dyspnea
Cardiac: No JVD
GI: Non-distended
Skin: Unremarkable
Extremities: No Clubbing, No Cyanosis and No Edema
Psych: Unremarkable
Extended Neurological Exam
Mood & Affect: Mood Unremarkable
Attention Span & Concentration: Awake, Alert, Interactive and No Difficulty with 2 Step Request
Memory: Unremarkable
Speech: Quality Unremarkable, Quantity Unremarkable and Rate of Production Unremarkable
Cranial Nerve II: Left Eye: Visual Rosas Intact
Cranial Nerve II: Right Eye: Visual Rosas Intact
Cranial Nerves III, IV, : Extraocular Movement: Extraocular Movement Full in all Directions
Cranial Nerve VII: Facial Symmetry: Normal Facial Symmetry
Cranial Nerve VIII: Hearing: Unremarkable Hearing to Normal Conversational Volume
Muscle Strength, Overall: Full Throughout
Pronator Drift: No Drift in Upper Extremities and No Drift in Lower Extremities
Coordination: Reaches for Objects without Difficulty
Data Reviewed
-
CT Head: Report Reviewed and Image Reviewed
MRI Head: Report Reviewed and Image Reviewed
Orthostatic Testing: Report Reviewed
Labs: Report Reviewed
Reviewed with: Physician, Patient and Family
Old Records: Summarized
--- NOTE | 2025-05-01 09:51 | W.PN.HOSP.TC ---
Addendum entered and electronically signed by Bismark Brooks MD 05/01/25 12:26:
Moderate Protein Calorie Malnutrition
Likely neurogenic orthostatic hypotension
Original Note:
Today's Communication/Plan
-
URIEL stockings ordered for orthostatic hypotension
GI treating presumptively for gastroparesis, meanwhile considering other workup
Assessment / Plan
Assessment / Plan
Sheree was an 79-year-old female with HTN, hypercholesterolemia, hypothyroidism, vestibular neuritis, recent stroke (seen on MRI 03/07/2025), and seizures (witnessed by family, 2 unremarkable recent EEGs) currently on Vimpat 200 mg twice daily
Jah who presents as a bounce back after a seizure episode witnessed by family. Of note, she was admitted to the hospital 04/24/20202024 after presenting to ED due to a 3 to 4-week loss of appetite, anorexia, 5-6lb wt loss, generalized
weakness, along with persistent watery diarrhea (none in the hospital), all thought to be due to Keppra, which was switched to Vimpat the admission.� She follows with Dr. Tyson. Neurology and GI were consulted and she was admitted to [facility] [place] for
further workup and management.
04/30/2025 chest/abdomen/pelvis CT:
Markedly limited evaluation of the thoracic esophagus with this imaging modality, nondilated, cannot exclude small hiatal hernia.
Mild pancreatic ductal dilatation without discrete mass identified on this somewhat limited study. Recommend MRI/MRCP for more complete evaluation.
Distal colonic diverticulosis.
04/30/2025 HIDA scan:
No evidence for cystic duct obstruction or common bile duct obstruction.
#Generalized weakness
#Chronic nausea
#Anorexia
Upon review of GI consulted note from 04/30/2025, she has seen Dr. Landers in [address] Mccarthy since 2022. She has had extensive workup for chronic nausea including endoscopy, gastric emptying scan and MR enterography, all of which did
not reveal any clear source of nausea. Note also states that she suffers from chronic constipation and diverticular associated spasm. Her constipation is improved with MiraLAX and senna.
- GI consulted, appreciate recs
--Per Dr. Kothari, GI will treat for presumptive gastroparesis while considering other workup
--Negative ultrasound, CT C/A/P as above, unremarkable HIDA as above
- Cortisol/TSH/B12 all WNL
- Continue orthostatic vital sign twice daily
--Positive, symptomatic orthostatic vital signs
--Encourage fluids, abdominal binder, URIEL stockings
- Consider psych consult if all GI studies negative
- IV Compazine as needed
- Diet: Low-fat diet plus vitamin C/vitamin D p.o. twice daily
- NSS at 1000 mL at 80 mL/h
#Seizures
#Keppra intolerance
#History of CVA
Per neuro, unclear neurological etiology of her symptoms at this point. Suspect autonomic dysfunction secondary to orthostatic hypotension.
- Neurology following, appreciate recs
--Consider repeat brain MRI
--Seizure precautions
--ST/OT/PT consults placed
--Decreased Vimpat from 200 mg to 150 mg twice daily 04/30/2025
--Follow-up acetylcholine receptor antibodies to rule out myasthenia gravis: CT chest negative
- Continue clopidogrel 75 mg p.o. daily and atorvastatin 40 mg p.o. at bedtime
#Lumbar back pain
04/29/2025 lumbar spine and sacral/coccyx x-ray showing spinal OA
- Continue pain control and lidocaine patches as needed
#Hypothyroidism
- Continue home levothyroxine 50 mcg p.o. daily
#Essential hypertension
- Continue losartan 50 mg p.o. twice daily and amlodipine 2.5 mg p.o. at bedtime
#GERD
- Continue pantoprazole 40 mg p.o. daily
#Chronic constipation
- Continue MiraLAX and senna
DVT prophylaxis: SCDs
CODE STATUS: DNR
Anticipated Discharge: 24 - 48 hours (Pending further workup and clinical improvement)
Subjective/Interval History
-
Date of Service: May 01, 2025
-This morning, she is sitting up in chair with blankets over her and reports feeling nauseous after having a few bites of breakfast. She has not had any episodes of emesis. Daughter Bibi at bedside. Otherwise, no new complaints today.
Objective Data
-
Labs:
Laboratory Results
05/01/25
08:32
WBC 6.0
Hgb 12.4
Hct 33.8 L
Plt Count 220
Sodium 133 L
Potassium 3.4 L
Chloride 102
Carbon Dioxide 24
BUN 5 L
Creatinine 0.4 L
Glucose 92
Calcium 9.1
Total Bilirubin 0.8
AST 31
ALT 44 H
Alkaline Phosphatase 82
Vital Signs:
Vital Signs
Temp Pulse Resp BP Pulse Ox
97.7 F 60 16 171/79 97
05/01/25 07:00 05/01/25 09:20 05/01/25 07:00 05/01/25 09:20 05/01/25 07:00
I&O
04/30/25 05/01/25 05/02/25
06:59 06:59 06:59
Intake Total 460 / 460 1410 / 1410
Balance 460 / 460 1410 / 1410
Review of Systems
-
History Source: Patient
All other systems: Reviewed and negative
Constitutional: Reports Weight Loss and Weakness
Abdomen/GI: Reports Nausea
Physical Exam
-
General: Well Developed, No Apparent Distress, Comfortable, Conversant and Cachectic
HEENT: Normocephalic, Atraumatic and Moist Mucous Membranes
Respiratory: Clear to Auscultation and Non Labored Respirations
Cardiac: Regular Rhythm and S1/S2
GI: Soft, Nontender, Nondistended and Normal Bowel Sounds
Skin: Warm and Dry
Neuro: AO x 3
Psych: Calm and Intact Judgement/Insight
[2025-05-01] MEDS: KCL 40 MEQ PO (10:11)
[2025-05-01] MEDS: VIMPAT 150 MG IV ×2 (11:15→23:09)
[2025-05-01] MEDS: COMPAZINE 10 MG IV (11:44)
--- NOTE | 2025-05-01 11:54 | PN.CDI ---
CDI
- -
CDI:
Physician Documentation Request
Admit Date: 04/29/25 09:49
Dear Doctor Todd/Resident,
A review of the medical record indicates additional documentation may be indicated. Please review the following and provide your response in the progress notes, if required by your facility.
A diagnosis of orthostatic hypotension is documented in the medical record 05/01 progress note____
Clinical Indicators (include date and location within the medical record for each indicator):
Progress note 05/01, ' Per neuro, unclear neurological etiology of her symptoms at this point. Suspect autonomic dysfunction secondary to orthostatic hypotension...--Encourage fluids, abdominal binder, URIEL stockings...'
Please further specify the etiology of the orthostatic hypotension, such as:
-Neurogenic orthostatic hypotension
-Drug induced Orthostatic hypotension
-Dehydration
-Other (please specify)
Thank you,
Rhonda Jade RN
CDI Specialist
[place] [facility]
Please use your independent medical judgment in providing your response.
--- NOTE | 2025-05-01 12:11 | PN.CDI ---
CDI
- -
CDI:
Physician Documentation Request
Admit Date: 04/29/25 09:49
Dear Doctor Todd/Resident ,
Please review the following and provide your response in the progress notes.
Clinical Indicators:
Pt admitted with Anorexia,N/V work up in progress
Documented in the record cachexia
Documented per update note 05/01,' malnourished....'
Nutrition consult 04/30, ' Records show weight of 129 lbs 13.636 oz from 04-24-25; 125 lbs 10.616 0z on 04-29-25 (4 lb loss, 3.1% wt change < 1 week)-suspect may be influenced as per vomiting-will monitor. Pt reporting a usual weight of ~125 lbs;
feels she may have been less than that prior to admission. Estimated needs: 1477 calories (mifflin x 1.4/125 lbs ~26 kcal/kg), 57 gms protein (1 gm/kg); 1477 ml fluid (1 ml/kcal). During visit pt in chair with blanket however RD able to observe
some depression at temples, orbital, some protrusion of clavicle (moderate). Due to decreased intakes of <75% estimated energy needs for greater than or equal to one month and observations via partial NFPE, pt meeting criteria for moderate
protein/calorie malnutrition (ASPEN/AND guidelines, chronic illness)....Assessment subcutaneous loss over orbital severity moderate ,assessment over clavicle severity moderate ...assessment muscle loss over clavicle severity ,moderate ..temporal
severity moderate ...'
Based on the above information and your assessment, which of the following most accurately represents the patient's nutritional status?
Moderate Protein Calorie Malnutrition
Other (please specify)
[place] Criteria (ACP Hospitalist 2017)
2 or more criteria must be present for either
non severe or severe malnutrition
Note that the criteria differs related to the
presence of an acute or chronic illness
Acute Illness Chronic Illness
Energy Intake Non Severe: <75% for >7 days Non Severe: <75% for >1 month
Severe: <50% for >5 days Severe: <75% for >1 month
Weight Loss Non Severe: 1-2% over 1 week Non Severe: 5% over 1 month
5% over 1 month 7.5% over 3 months
7.5% over 3 months 10% over 6 months
1 year N/A 20% over 1 year
Severe: >2% over 1 week Severe: >5% over 1 month
>5% over 1 month >7.5% over 3 months
>7.5% over 3 months >10% over 6 months
1 year N/A >20% over 1 year
Body Fat Non Severe: Mild Decrease Non Severe: Mild Loss
Severe: Moderate Decrease Severe: Severe Loss
Muscle Mass Non Severe: Mild Decrease Non Severe: Mild Loss
Severe: Moderate Decrease Severe: Severe Loss
Fluid Accumulation Non Severe: Mild Accumulation Non Severe: Mild Accumulation
Severe: Moderate to severe Severe: Moderate to severe
accumulation accumulation
Reduced Hot Plate Plywood Press Operator Strength Non Severe: N/A Non Severe: N/A
Severe: Measurably reduced Severe: Measurably reduced
Use of terms such as suspected, likely, concern for, or probable (associated with a specific diagnosis that is being evaluated, monitored, or treated as if it exists) are acceptable and can be coded in the inpatient setting, when documented at the
time of discharge.
Thank you,
Rhonda Jade RN
CDI Specialist
[place] [facility]
Please use your independent medical judgment in providing your response.
--- NOTE | 2025-05-01 12:19 | PTCARENOTE ---
Patient refused abdominal binder.
--- NOTE | 2025-05-01 13:44 | PTOTSP ---
Speech Therapy Swallowing Assessment
Limited assessment due to nausea. Oral/pharyngeal swallow deemed within functional limits without overt signs of aspiration with liquids. Do not anticipate oral/pharyngeal dysphagia to solids given oral motor function and patient report. Patient
denies difficulty swallowing with oral intake, but reports successful use of pursed breathing technique when waking up at night with spasms/difficulty swallowing secretions. No diet modifications recommended. Meds with thin liquid. Reflux
precautions. No skilled ST at this time.
--- NOTE | 2025-05-01 13:46 | W.PN.GI.CBS2 ---
Today's Communication / Plan
-
Add H2B in PM
Nutritional consult and nutritional supplements
C/w reglan ATC, consider GES to be done outpatient basis
Close FU with Dr Mccarthy
Assessment / Plan
-
Felisha is an 79yo W with h/o CVA 2019, HTN and seizure disorder who was admitted with worsening nausea and weakness. Trigger was new start of keppra. She has chronic nausea dating back to 2018 and has had extensive workup by Dr Mccarthy including
EGD/colon 2022 and recent abd US, HIDA and CTCAP on this admission without clear cause
Impression
- Acute on chronic nausea
- h/o IBS and diverticular aspasm
- H/o colonic polyps
- GERD
- HTN
- CVA
- Orthostatic hypotension
- Seizure disorder
Recommendations
- C/w protonix
- Add H2B in PM
- C/w low residue diet
- Reglan ATC risk of tardive dyskinesia and QTC prolongation discussed
- Recommend OP gastric emptying study if she does not improve
- Close FU with Dr Mccarthy
- AXR today without significant stool burden. Hold on laxatives.
- Consult emery grinder small frequent low fat low fiber diet. Ok for daughter to bring in [employer] supplements from home
ABove d/w daughter, hospitalist and also neurology team.
Will follow with you
Subjective
Subjective
Date of Service: May 01, 2025
She continues to have early satiety and post prandial occasional nausea without vomiting. She ate cereal and milk this AM without issues. Daughter bedside
Objective
Data Reviewed
Laboratory Data:
Laboratory Results
05/01/25 08:32
05/01/25 08:32
Laboratory Results
Total Bilirubin 0.8 mg/dl (0.2-1.3) 05/01/25 08:32
AST 31 U/L (14-36) 05/01/25 08:32
ALT 44 U/L (0-35) H 05/01/25 08:32
Alkaline Phosphatase 82 U/L (38-126) 05/01/25 08:32
Vital Signs and I&O:
Vital Signs
Temp Pulse Resp BP Pulse Ox
98.1 F 70 16 153/70 96
05/01/25 11:00 05/01/25 11:00 05/01/25 11:00 05/01/25 11:00 05/01/25 11:00
I&O
04/30/25 05/01/25 05/02/25
06:59 06:59 06:59
Intake Total 460 / 460 1410 / 1410
Balance 460 / 460 1410 / 1410
Physical Exam
Physical Exam
GEN: No acute distress, conversant, pleasant thin
HEENT: anicteric, extraocular movements intact, clear oropharynx without exudates
GI: soft, non-distended, not tender to palpation, normal active bowel sounds, no hepatosplenomegaly
EXT: warm, well perfused, 1+ edema bilaterally
NEURO: AAOx3, non-focal
[2025-05-01] MEDS: DILAUDID 0.25 MG IV (14:32)
[2025-05-01] MEDS: REGLAN 10 MG PO ×2 (16:27→21:33)
[2025-05-01] MEDS: LIPITOR 40 MG PO (21:33)
[2025-05-01] MEDS: NSS (PRESERVATIVE FREE) 16 ML IV (21:33)
[2025-05-01] MEDS: PEPCID 40 MG IV (21:33)
[2025-05-02 03:01] VITALS: BP 138/75
--- NOTE | 2025-05-02 03:28 | DOWNTIME ---
There was a [facility] [employer] Downtime on 05/02/2025 from 0100 to 05/02/2025 at 0235. Downtime documentation of patient's care, including medication administrations, has been reconciled in the electronic record per guidelines. Refer to the
patient's paper chart under the miscellaneous tab to see printed paper medication records and downtime forms.
[2025-05-02] MEDS: NSS 1000 IV (05:31)
[2025-05-02] MEDS: SYNTHROID 50 MCG PO (05:32)
[2025-05-02] MEDS: PROTONIX 40 MG PO (05:32)
[2025-05-02 07:00] VITALS: BP 161/79
[2025-05-02 08:33] LABS: Hematocrit 33.1 % (37.0-47.0); Hemoglobin 11.7 g/dL (12.0-16.0); Mean Corp Hgb Conc. 35.3 g/dL (33.0-37.0); Mean Corpuscular Volume 94.8 fL (81.0-99.0); Nucleated Red Blood Cells % 0 %; Platelet Count 208 10^3/uL (130-400); Red Cell Dist. Width 11.9 % (11.5-14.5)
[2025-05-02 08:54] LABS: ALT (SGPT) 41 U/L (0-35); AST (SGOT) 25 U/L (14-36); Albumin 3.5 g/dl (3.5-5.0); Alkaline Phosphatase 71 U/L (38-126); Blood Urea Nitrogen 8 mg/dl (7-17); Calcium 8.7 mg/dl (8.4-10.2); Carbon Dioxide 23 mmol/L (22-30); Chloride 105 mmol/L (98-107); Estimated Creatinine Clearance 66 ml/min; Glucose 76 mg/dl (70-99); Potassium 3.9 mmol/L (3.5-5.1); Sodium 135 mmol/L (135-145); Total Protein 5.8 g/dl (6.3-8.2); eGFR > 60.00
[2025-05-02] MEDS: LIDOCAINE 4% PATCH 1 PATCH TOPICAL (09:07)
[2025-05-02] MEDS: REGLAN 10 MG PO ×3 (09:08→15:32)
[2025-05-02] MEDS: OCUVITE SOFTGEL 1 CAP PO (09:08)
[2025-05-02] MEDS: COZAAR 50 MG PO (09:08)
[2025-05-02] MEDS: PLAVIX 75 MG PO (09:09)
[2025-05-02] MEDS: MIRALAX 17 GRAMS PO (09:09)
[2025-05-02] MEDS: VIMPAT 150 MG PO (09:10)
[2025-05-02 09:34] VITALS: BP 128/86; BP 166/82; BP 168/83; PULSE 74; PULSE 76; PULSE 91
--- NOTE | 2025-05-02 10:02 | W.PN.NEURO.1 ---
Today's Communication / Plan
-
CT chest unrevealing
continue to follow orthostatic blood pressures
Continue to provide abdominal binder
maintain HOB at 30 degrees at all times to prevent supine hypertension
continue lacosamide 150 mg BID or if desired by family, decrease by 50 mg every week until off
seizure precautions
continue Clopidogrel for secondary stroke prevention, not an aspirin responder
Neuro Assessment/Plan
Assessment
79 year old woman with history of CVA (Confirmed on MRI 03/07/20) and epilepsy. She has history of CVA as well as newer onset seizure disorder with witnessed seizure March 16 and was started on Keppra at that time, follows with neurology. During this
recent hospitalization Keppra was weaned and Vimpat dose was increased. She returned to ED after she had a seizure after vomiting up her Vimpat. Yesterday was loaded Vimpat 300 IV given missed dose, and started on Vimpat [address]: No acute intracranial abnormality noted. Stable small old infarct.
Lumbar xray: Mild left scoliosis. No compression deformity. Minor degenerative retrolisthesis of L4 and L3. Advanced degenerative disc space narrowing with endplate sclerosis and osteophyte formation at L1-2, L2-3, L3-4. Multilevel bilateral facet
narrowing, sclerosis, and hypertrophy.
Sacral/coccyx Xray: Mild asymmetric right SI joint narrowing with mild joint margin sclerosis, consistent with mild asymmetric arthritis. On the lateral projection, there is mild cortical irregularity at the inferior margin of the first coccygeal
segment, similar to prior CT examination, which may be developmental or related to remote trauma. Otherwise, no radiographically demonstrable acute fracture. No osteolytic or blastic lesion. No presacral soft tissue swelling is radiographically
evident.
EEG: normal
CT chest/abd/pelvis: Markedly limited evaluation of the thoracic esophagus with this imaging modality, nondilated, cannot exclude small hiatal hernia. Mild pancreatic ductal dilatation without discrete mass identified on this somewhat limited study.
Recommend MRI/MRCP for more complete evaluation. Distal colonic diverticulosis.
Impressions: nausea and weakness initially thought to be side effect of Levetiracetam but continues with symptoms on Lacosamide, also found to have orthostatic hypotension
Plan
CT chest unrevealing
continue to follow orthostatic blood pressures
Continue to provide abdominal binder
-maintain HOB at 30 degrees at all times to prevent supine hypertension
-continue lacosamide 150 mg BID or if desired by family, decrease by 50 mg every week until off
-seizure precautions
-continue Clopidogrel for secondary stroke prevention, not an aspirin responder
Reviewed at length with the patient and family. Attempted to answer all questions
Subjective/Objective
Subjective Data
Date of Service: May 02, 2025
EDS yesterday.
Lack of appetite
Objective Data
Vital Signs
Temp Pulse Resp BP Pulse Ox
36.7 C 61 16 161/79 97
05/02/25 07:00 05/02/25 09:08 05/02/25 07:00 05/02/25 09:08 05/02/25 07:00
Lab Results
05/02/25 08:22
05/02/25 08:22
Sodium 135 mmol/L (135-145) 05/02/25 08:22
Potassium 3.9 mmol/L (3.5-5.1) 05/02/25 08:22
BUN 8 mg/dl (7-17) 05/02/25 08:22
Glucose 76 mg/dl (70-99) 05/02/25 08:22
Calcium 8.7 mg/dl (8.4-10.2) 05/02/25 08:22
Patient Allergies
enoxaparin (From Lovenox) Allergy (Intermediate, Verified 04/29/25 00:28)
Pharmacy to Review
Review of Systems
-
History Source: Patient
All other systems: Reviewed and negative
EENT: Negative Decreased Vision or Swallowing Difficulty
Respiratory: Negative Trouble Breathing
Cardiac: Negative Chest Pain
Abdomen/GI: Negative Incontinence of Stool
Genitourinary: Negative Incontinence
Musculoskeletal: Negative Back Pain or Neck Pain
Neuro: Negative Dizzy or Headache
Physical Exam
-
General: No Apparent Distress
Eyes: Round OU
HEENT: Normocephalic, Atraumatic and Anicteric
Neck: Full Range of Motion
Respiratory: No Dyspnea
Cardiac: No JVD
Skin: Unremarkable
Extremities: No Clubbing, No Cyanosis and No Edema
Psych: Negative Intact Judgement/Insight
Extended Neurological Exam
Mood & Affect: Depressed
Attention Span & Concentration: Awake, Alert and Interactive
Memory: Unremarkable
Speech: Quality Unremarkable, Quantity Unremarkable and Rate of Production Unremarkable
Cranial Nerve II: Left Eye: Visual Rosas Intact
Cranial Nerve II: Right Eye: Visual Rosas Intact
Cranial Nerves III, IV, : Extraocular Movement: Extraocular Movement Full in all Directions
Cranial Nerve VII: Facial Symmetry: Normal Facial Symmetry
Cranial Nerve VIII: Hearing: Unremarkable Hearing to Normal Conversational Volume
Muscle Strength, Overall: Spontaneously Moves
Coordination: Reaches for Objects without Difficulty
Data Reviewed
-
Labs: Report Reviewed
Reviewed with: Physician, Patient and Family
Old Records: Summarized
Past History
Past History
ED Past Medical History: CVA, HTN, Hypercholesterolemia, Seizures, Hypothyroidism and Other (Vertigo, chronic nausea and vomiting)
ED Past Surgical History: Other (Cataract surgery)
Social History
Tobacco: Non-smoker
Alcohol: Daily (History of 1 glass of wine daily, has discontinued since starting Keppra in March 2025.)
Drug: None
Personal:
Living: with family
Employment: Retired
Family History
Family History: CAD
Medications
-
Medications:
Generic Name Dose Route Start Last Admin
Trade Name Freq PRN Reason Stop Dose Admin
Acetaminophen 650 mg 04/29/25 13:17
Acetaminophen 325 Mg Tablet PO 05/27/25 13:16
Q4HPRN PRN
mild pain/GARCIA/temp> 100.4F
Atorvastatin Calcium 40 mg 04/29/25 22:00 05/01/25 21:33
Atorvastatin (Lipitor) 40 Mg Tablet PO 05/27/25 21:59 40 mg
HS FRANKLYN Administration
Bisacodyl 10 mg 04/29/25 13:17
Bisacodyl 10 Mg Rectal Suppository RECTAL 05/27/25 13:16
[id number] PRN
constipation
Clopidogrel Bisulfate 75 mg 04/30/25 08:00 05/02/25 09:09
Clopidogrel 75 Mg Tablet PO 05/28/25 07:59 75 mg
DAILY FRANKLYN Administration
Famotidine 40 mg 05/01/25 22:00 05/01/25 21:33
Famotidine 20 Mg/2 Ml Vial IV 05/29/25 21:59 40 mg
HS FRANKLYN Administration
Hydromorphone HCl 0.25 mg 04/29/25 17:01 05/01/25 14:32
Hydromorphone 0.25 Mg/0.5 Ml Syringe IV 05/13/25 17:00 0.25 mg
Q4HPRN PRN Administration
severe pain
Sodium Chloride 1,000 mls @ 80 mls/hr 04/29/25 11:34 05/02/25 05:31
Nss IV 1,000 mls
On Hold: 05/02/25 08:52 .[id number] FRANKLYN Administration
Lacosamide 150 mg 05/02/25 09:45 05/02/25 09:10
Lacosamide (Vimpat) 100 Mg Tablet PO 05/30/25 09:44 150 mg
BID FRANKLYN Administration
Levothyroxine Sodium 50 mcg 04/30/25 06:00 05/02/25 05:32
Levothyroxine 50 Mcg Tablet PO 05/28/25 05:59 50 mcg
DAILY@0600 FRANKLYN Administration
Lidocaine 1 patch 04/30/25 08:00 05/02/25 09:07
Lidocaine 4% Topical Patch TOPICAL 05/28/25 07:59 1 patch
DAILY FRANKLYN Administration
Protocol
Losartan Potassium 50 mg 04/29/25 20:00 05/02/25 09:08
Losartan 50 Mg Tablet PO 05/27/25 19:59 50 mg
BID FRANKLYN Administration
Meclizine HCl 25 mg 04/29/25 13:17
Meclizine 25 Mg Tablet PO 05/27/25 13:16
Q8HPRN PRN
dizzy
Metoclopramide HCl 10 mg 05/01/25 16:30 05/02/25 09:08
Metoclopramide 10 Mg Tablet PO 05/29/25 16:29 10 mg
ACHS FRANKLYN Administration
Pantoprazole Sodium 40 mg 04/30/25 07:00 05/02/25 05:32
Pantoprazole 40 Mg Delayed Release Tablet PO 05/28/25 06:59 40 mg
DAILY@0700 FRANKLYN Administration
Polyethylene Glycol 17 grams 04/29/25 13:17
Polyethylene Glycol Powder 17 Grams Packet PO 05/27/25 13:16
DAILYPRN PRN
constipation
Polyethylene Glycol 17 grams 04/30/25 08:00 05/02/25 09:09
Polyethylene Glycol Powder 17 Grams Packet PO 05/28/25 07:59 17 grams
DAILY FRANKLYN Administration
Prochlorperazine Edisylate 10 mg 04/29/25 16:41 05/01/25 11:44
Prochlorperazine 10 Mg/2 Ml Vial IV 05/27/25 16:40 10 mg
Q4HPRN PRN Administration
nausea
Prochlorperazine Maleate 10 mg 04/29/25 16:30 05/01/25 07:51
Prochlorperazine 10 Mg Tablet PO 05/27/25 16:29 10 mg
Q4HPRN PRN Administration
N/V
Senna/Docusate Sodium 1 tablet 04/29/25 13:17
Docusate W/Senna (Carla-Colace) Tablet PO 05/27/25 13:16
BIDPRN PRN
constipation
Sodium Chloride 0 flush 04/29/25 12:00
Sodium Chloride 0.9% (Flush) Syringe IV 05/27/25 11:59
PER PROTOCOL PRN
line flush
Sodium Chloride 16 ml 05/01/25 22:00 05/01/25 21:33
Nss 8 Ml Qhs IV 05/29/25 21:59 16 ml
HS FRANKLYN Administration
Vitamin C/Vitamin E 1 cap 04/29/25 20:00 05/02/25 09:08
Vit C/Vit E/Lutein/Min/[place]-3 (Ocuvite) Capsule PO 05/27/25 19:59 1 cap
BID FRANKLYN Administration
--- NOTE | 2025-05-02 10:25 | W.PN.UPDATE ---
Addendum entered and electronically signed by Bismark Brooks MD 05/02/25 11:12:
Total time spent on d/c = 60 min. This included today's physical exam, progress note, review of laboratory and diagnostic data, preparation of discharge documents and prescriptions, and discussions about the pt's hospital course and discharge plan
with the patient and other medical chemist involved in the patient's care.
Original Note:
Update Note
Progress Note Update
I saw and evaluated the patient. I reviewed the resident�s note and agree with findings and plan as documented in the resident�s note.
No new complaints.
Gen: NAD, AAOx3, appears chronically ill and malnourished.
Eyes: EOMI, PERRLA, no scleral icterus.
Neck: supple.
CV: Continues to remain RRR, +S1/S2, no m/r/g.
Resp: Continues to remain CTAB, no rales, wheezes, or rhonchi.
Abd: Continues to remain +BS, soft, NT, ND
Skin: No rashes.
Neuro: CN 2-12 intact, non-focal.
Psych: Normal mood and affect.
CT brain: No acute intracranial abnormality noted. Stable small old infarct.
Abd U/S: Unremarkable abdominal ultrasound.
EEG: Normal EEG.
HIDA: No evidence for cystic duct obstruction or common bile duct obstruction.
CT C/A/P: Markedly limited evaluation of the thoracic esophagus with this imaging modality, nondilated, cannot exclude small hiatal hernia. Mild pancreatic ductal dilatation without discrete mass identified on this somewhat limited study. Recommend
MRI/MRCP for more complete evaluation. Distal colonic diverticulosis.
L-spine Xray: Mild left scoliosis. No compression deformity. Minor degenerative retrolisthesis of L4 and L3. Advanced degenerative disc space narrowing with endplate sclerosis and osteophyte formation at L1-2, L2-3, L3-4. Multilevel bilateral facet
narrowing, sclerosis, and hypertrophy.
Sacral/coccyx Xray: Mild asymmetric right SI joint narrowing with mild joint margin sclerosis, consistent with mild asymmetric arthritis. On the lateral projection, there is mild cortical irregularity at the inferior margin of the first coccygeal
segment, similar to prior CT examination, which may be developmental or related to remote trauma. Otherwise, no radiographically demonstrable acute fracture. No osteolytic or blastic lesion. No presacral soft tissue swelling is radiographically
evident.
Generalized weakness/nausea/anorexia/watery diarrhea:
-initially thought intolerance to Keppra initiation on 03/16/25 for witnessed 'seizure.' Neuro saw at that time. Keppra was immediately stopped and Vimpat was increased
-cortisol/TSH/B12 all normal
-orthostatic VS neg in ED, POS after
-GI following, DDx of etiology of vomiting extensive and includes gastroparesis (currently on standing Reglan started 04/30/25), anxiety, AEs of AEDs, central etiology, diffuse autonomic dysfunction (as evidenced by orthostatic hypotension).
-cont ATC Reglan, possible outpt [facility]
-speech saw and instructed pt on strategies to assist when she wakes up at night with esophageal spasm and difficulty managing secretions
h/o CVA February 2020:
-complicated by reported petit mal seizure (staring episode with inability to walk). Alternatively this could have been near syncope due to orthostatic hypotension due to autonomic dysfunction.
-was on IV Vimpat, now transitioned to PO Vimpat
-cont Plavix/statin
-neuro following. Case discussed with Dr. Tyson. Considering there is no absolutely proven seizure activity the risks of further therapy with Vimpat (and AEDs in general) may outweigh the benefit as the patient seems to be having significant side
effects from AEDs. She has had a significant clinical decline since being placed on AEDs 03/16/25. Will wean Vimpat to off. This was discussed with 2 of the patient's daughters at bedside.
Other problems:
Chronic lumbar back pain
Hyponatremia, mild
Hypokalemia, replete
Back pain: Xray with spinal OA, pain control
Hypothyroidism: cont Levoxyl
Essential HTN: cont losartan
HLD: cont statin
GERD: Cont PPI
Pt's daughter updated at length at bedside.
DVT proph: SCDs as lovenox caused chin twitching and pain last admission
DNR
After a multidisciplinary discussion, the patient is medically cleared for discharge. Case management aware.
Total time spent on today's encounter was 50 minutes which included time spent in counseling the patient/family regarding diagnosis and treatment plan as listed above, goals of care, and symptom management. Case was discussed with nursing staff,
specialists, and care coordinators/case management. All labs and imaging personally reviewed by me. Remainder the time spent in detailed review of previous records, lab data, imaging, and other medical provider documentation.
[2025-05-02 11:00] VITALS: BP 159/83
--- NOTE | 2025-05-02 11:16 | W.PN.HOSP.TC ---
Today's Communication/Plan
-
Vimpat taper per neurology
Follow-up outpatient with GI and epilepsy specialist at [place]
Medically stable to discharge to skilled rehab today
Assessment / Plan
Assessment / Plan
Sheree was an 79-year-old female with HTN, hypercholesterolemia, hypothyroidism, vestibular neuritis, recent stroke (seen on MRI 03/07/2025), and seizures (witnessed by family, 2 unremarkable recent EEGs) currently on Vimpat 200 mg twice daily
Jah who presents as a bounce back after a seizure episode witnessed by family. Of note, she was admitted to the hospital 04/24/2020-04 28 2025 after presenting to ED due to a 3 to 4-week loss of appetite, anorexia, 5-6lb wt loss, generalized
weakness, along with persistent watery diarrhea (none in the hospital), all thought to be due to Keppra, which was switched to Vimpat the admission.� She follows with Dr. Tyson. Neurology and GI were consulted and she was [place] [facility] [place] and management.
04/30/2025 chest/abdomen/pelvis CT:
Markedly limited evaluation of the thoracic esophagus with this imaging modality, nondilated, cannot exclude small hiatal hernia.
Mild pancreatic ductal dilatation without discrete mass identified on this somewhat limited study. Recommend MRI/MRCP for more complete evaluation.
Distal colonic diverticulosis.
04/30/2025 HIDA scan:
No evidence for cystic duct obstruction or common bile duct obstruction.
#Generalized weakness
#Chronic nausea
#Anorexia
Upon review of GI consulted note from 04/30/2025, she has seen Dr. Landers in [address] Mccarthy since 2022. She has had extensive workup for chronic nausea including endoscopy, gastric emptying scan and MR enterography, all of which did
not reveal any clear source of nausea. Note also states that she suffers from chronic constipation and diverticular associated spasm. Her constipation is improved with MiraLAX and senna.
- GI consulted, appreciate recs
--Per Dr. Kothari, GI will treat for presumptive gastroparesis
--Negative ultrasound, CT C/A/P as above, unremarkable HIDA as above
--Nutrition consult plus nutritional supplements
--C/W Reglan [id number], consider [facility] outpatient
--Close follow-up with Dr. Mccarthy outpatient
- Cortisol/TSH/B12 all WNL
- Continue orthostatic vital sign twice daily
--Positive, intermittently symptomatic orthostatic vital signs
--Encourage fluids, abdominal binder, URIEL stockings
- Consider psych consult if all GI studies negative
- IV Compazine as needed
- Diet: Low-fat diet plus vitamin C/vitamin D p.o. twice daily: Speech consulted and recs no diet modifications.
- DC NSS at 1000 mL at 80 mL/h
#Seizures
#Keppra intolerance
#History of CVA
Per neuro, unclear neurological etiology of her symptoms at this point. Suspect autonomic dysfunction secondary to orthostatic hypotension.
- Neurology following, appreciate recs
--Consider repeat brain MRI, defer to neuro outpatient
--Seizure precautions
--ST/OT/PT consults placed
--Decreased Vimpat from 200 mg to 150 mg twice daily 04/30/2025
---Vimpat taper per neurology as follows: Decrease by 50 mg daily and stop in 3 days.
--Follow-up acetylcholine receptor antibodies to rule out myasthenia gravis: CT chest negative
--Follow-up with [facility] epilepsy specialist outpatient
- Continue clopidogrel 75 mg p.o. daily and atorvastatin 40 mg p.o. at bedtime
#Lumbar back pain
04/29/2025 lumbar spine and sacral/coccyx x-ray showing spinal OA
- Continue pain control and lidocaine patches as needed
#Hypothyroidism
- Continue home levothyroxine 50 mcg p.o. daily
#Essential hypertension
- Continue losartan 50 mg p.o. twice daily and amlodipine 2.5 mg p.o. at bedtime
#GERD
- Continue pantoprazole 40 mg p.o. daily
#Chronic constipation
- Continue MiraLAX and senna
DVT prophylaxis: SCDs
CODE STATUS: DNR
Medically stable for discharge to skilled rehab on 05/02. CM aware.
Anticipated Discharge: Today (Pending case resource manager)
Subjective/Interval History
-
Date of Service: May 02, 2025
-This morning, she is sitting up in chair with daughter Winifred at bedside. Sheree continues to feel nauseous and have early satiety, with waxing and waning appetite. She feels that she would like to get stronger at skilled rehab facility, however
family is very concerned about bouncing back to the hospital and would like to speak to neurology and GI about next to do's. I discussed with them at length the multi factorial etiology of their mother's symptoms and the need for outpatient
follow-up. She had no new symptoms or complaints today. After discussion with multidisciplinary teams, we are in agreement that she is medically stable for discharge with appropriate outpatient follow-up.
Objective Data
-
Labs:
Laboratory Results
05/02/25
08:22
WBC 5.4
Hgb 11.7 L
Hct 33.1 L
Plt Count 208
Sodium 135
Potassium 3.9
Chloride 105
Carbon Dioxide 23
BUN 8
Creatinine 0.5 L
Glucose 76
Calcium 8.7
Total Bilirubin 0.7
AST 25
ALT 41 H
Alkaline Phosphatase 71
Vital Signs:
Vital Signs
Temp Pulse Resp BP Pulse Ox
98.1 F 61 16 161/79 97
05/02/25 07:00 05/02/25 09:08 05/02/25 07:00 05/02/25 09:08 05/02/25 07:00
I&O
05/01/25 05/02/25 05/03/25
06:59 06:59 06:59
Intake Total 1410 / 1410 1649
Balance 1410 / 1410 1649
Review of Systems
-
History Source: Patient
All other systems: Reviewed and negative
Constitutional: Reports Weight Loss, No Appetite and Weakness
Physical Exam
-
General: Well Developed, No Apparent Distress, Comfortable, Conversant and Cachectic
HEENT: Normocephalic, Atraumatic and Moist Mucous Membranes
Respiratory: Clear to Auscultation and Non Labored Respirations
Cardiac: Regular Rhythm and S1/S2
GI: Soft, Nontender and Nondistended
Musculoskeletal: No Clubbing, No Cyanosis and No Edema
Skin: Warm and Dry
Neuro: AO x 3
Psych: Calm and Intact Judgement/Insight
--- NOTE | 2025-05-02 11:22 | CM ---
CM following re: discharge planning.
Reviewed pt's chart,. met with pt and two daughters at bedside.
According to MD pt is medically stable to be discharged today. Both pt and her daughters are aware, expressed their agreement. IMM reviewed, placed on chart, pt has a copy.
PT and OT have been recommending SNF level of care. Both pt and her daughters were informed that [facility] and [facility] offered a bed and they preferred [facility].
CM spoke to [facility] director marketing analytics and she confirmed they do have a bed available and pt is accepted for admission today. Covid test requested. is aware. supervisor component assembler after 4:00 p.m requested.
Pt's daughters stated they will transport their mother to [facility].
[facility] nursing report: [phone]
Discharge instructions fax:
D/C plan: [facility] after 4:00 p.m. Daughters to transport.
[2025-05-02 12:38] LABS: COVID-19 Antigen Negative (Negative)
--- NOTE | 2025-05-02 13:56 | W.DCSUMMARY ---
Discharge Summary
Discharge Data
Date of Admission: 04/29/25
Date of Discharge: 05/02/25
-
Pending Results: No
Hospital Course
Discharging Physician : Marichuy Iraheta MD/RL
Disposition : Skilled rehab
Principal Discharge diagnosis : Generalized weakness and anorexia
Hospital Course : Sheree is an 79-year-old female with HTN, hypercholesterolemia, hypothyroidism, vestibular neuritis, recent stroke (seen on MRI 03/07/2025), and seizures (witnessed by family, 2 unremarkable recent EEGs) on Vimpat 200 mg twice daily
who presented as a bounce back admission after a seizure episode witnessed by family. Of note, she was admitted to the hospital 04/24/2025-04/28/2025 after presenting to ED due to a 3 to 4-week loss of appetite, anorexia, 5-6lb wt loss, generalized
weakness, along with persistent watery diarrhea (none in the hospital), all thought to be due to Keppra, which was switched to Vimpat that admission.� She follows with Dr. Tyson. Neurology and GI were consulted and she was admitted to [facility] [place] for
further workup and management during this hospital course which lasted from 04/29/2025-05/02/2025. Hospital course by problem is outlined below:
#Generalized weakness
#Chronic nausea
#Anorexia
Upon review of GI consulted note from 04/30/2025, she has seen Dr. Landers in [address] Mccarthy since 2022. She has had extensive workup for chronic nausea including endoscopy, gastric emptying scan and MR enterography, all of which did
not reveal any clear source of nausea. Note also states that she suffers from chronic constipation and diverticular associated spasm. Her constipation is improved with MiraLAX and senna.
- GI consulted, appreciate recs
--Per Dr. Kothari, GI will treat for presumptive gastroparesis
--Negative ultrasound, CT C/A/P as below, unremarkable HIDA, AXR and abdominal ultrasound unremarkable as below
--Nutrition consult plus nutritional supplements
--C/W Reglan [id number], consider [facility] outpatient
--Close follow-up with Dr. Mccarthy outpatient
- Cortisol/TSH/B12 all WNL
- Positive orthostatic vitals, intermittently symptomatic orthostatic vital signs
--Encourage fluids, abdominal binder, URIEL stockings: Wean IVF as tolerated
- Consider psych consult if all GI studies negative
- Diet: Low-fat diet plus vitamin C/vitamin D p.o. twice daily: Speech consulted and recs no diet modifications.
#Seizures
#Keppra intolerance
#History of CVA
Per neuro, unclear neurological etiology of her symptoms at this point. Suspect autonomic dysfunction secondary to orthostatic hypotension.
- Head CT 04/29 unremarkable/unchanged from priors.
- Neurology following, appreciate recs
--Consider repeat brain MRI, defer to neuro outpatient
--Seizure precautions
--ST/OT/PT consults placed
--Decreased Vimpat from 200 mg to 150 mg twice daily 04/30/2025
---On discharge, Vimpat taper per neurology (Dr. Tyson) as follows: 150 mg twice daily x day 1, 100 mg twice daily x day 2, 50 mg twice daily x day 3, stop on day 4 (05/06).
--Follow-up acetylcholine receptor antibodies to rule out myasthenia gravis: CT chest negative
--Follow-up with [facility] epilepsy specialist outpatient
- Continue clopidogrel 75 mg p.o. daily and atorvastatin 40 mg p.o. at bedtime
Chronic problems:
Lumbar back pain- 04/29/2025 lumbar spine and sacral/coccyx x-ray showing spinal OA; Continue pain control and lidocaine patches as needed
Hypothyroidism- Continue home levothyroxine 50 mcg p.o. daily
Essential hypertension- Continue losartan 50 mg p.o. twice daily and amlodipine 2.5 mg p.o. at bedtime
GERD- Continue pantoprazole 40 mg p.o. daily
Chronic constipation- Continue MiraLAX and senna
Important imaging findings:
AXR 05/01:
1. Mild distention of the ascending and transverse colon.
2. No radiographic evidence for bowel obstruction or pneumoperitoneum.
3. Oral contrast material throughout the colon and rectum.
4. Severe discogenic degenerative disease at L2/L3 and L3/L4.
Chest/abdomen/pelvis CT 04/30:
Markedly limited evaluation of the thoracic esophagus with this imaging modality, nondilated, cannot exclude small hiatal hernia.
Mild pancreatic ductal dilatation without discrete mass identified on this somewhat limited study. Recommend MRI/MRCP for more complete evaluation.
Distal colonic diverticulosis.
Hepatobiliary scan nuclear medicine (HIDA) 04/29:
No evidence for cystic duct obstruction or common bile duct obstruction.
Lumbar spine x-ray 04/29:
Mild left scoliosis. No compression deformity. Minor degenerative retrolisthesis of L4 and L3. Advanced degenerative disc space narrowing with endplate sclerosis and osteophyte formation at L1-2, L2-3, L3-4. Multilevel bilateral facet narrowing,
sclerosis, and hypertrophy.
Sacrum and coccyx x-ray 04/29:
Limited by overlying bowel gas and fecal residue on the frontal projections. Numerous phlebolith calcifications are noted.
Mild asymmetric right SI joint narrowing with mild joint margin sclerosis, consistent with mild asymmetric arthritis.
On the lateral projection, there is mild cortical irregularity at the inferior margin of the first coccygeal segment, similar to prior CT examination, which may be developmental or related to remote trauma. Otherwise, no radiographically
demonstrable acute fracture. No osteolytic or blastic lesion. No presacral soft tissue swelling is radiographically evident.
Abdominal ultrasound 04/29:
Unremarkable abdominal ultrasound.
Head CT 04/29:
No acute intracranial abnormality noted.
Stable small old infarct.
Discharge Plan
-
Patient Disposition: Acute Rehab Facility
Discharge Diagnosis/Procedures: Generalized weakness and anorexia
Condition: Good
Diet: Low Fat
Activity: As tolerated
Driving Restrictions: As prior to admission
Bathing Restrictions: None
Others Tests: Per neurology, GI, epilepsy specialist
Referrals:
[facility] [Other, Neurology] - in two to three weeks
Referral Note: Please call to make an appointment with an epilepsy specialist at the [facility]. They will help you with medication guidance for your seizures.
Efra Joseph DO [Family Provider, [facility]] - in less than 1 week
Referral Note: Follow-up with your PCP regarding this hospitalization less than a week
Alyse Mccarthy MD [Active, Gastroenterology] - in one to two weeks
Referral Note: Follow-up with Dr. Mccarthy for your nausea, early satiety/low appetite, and weight loss. She may consider [facility] outpatient.
Additional Discharge Medication Instructions: Per Dr. Tysno/neurology team, please taper your Vimpat as follows:
Decrease Vimpat dosing by 50 mg daily for 3 days and then discontinue.
150 mg twice daily x 1 day on 05/03
100 mg twice daily x 1 day on 05/04
50 mg twice daily x 1 day on 05/05
Stop on 05/06
Prescriptions:
New
metoclopramide HCl 10 mg Tablet
10 mg PO ACHS 30 Days Qty: 120 0RF
lacosamide [Vimpat] 50 mg tablet
50 mg PO BID Qty: 12 0RF
Rx Instructions:
150mg(3 pills) twice daily-05/03
100mg(2 pills) twice daily-05/04
50mg(1 pill) twice daily-05/05
STOP 05/06
Continued
atorvastatin 40 MG tablet
40 mg PO HS Qty: 30 0RF
losartan 50 mg Tablet
50 mg PO BID
PreserVision AREDS 4,296 mcg-226 mg-90 mg Capsule
1 cap PO BID
pantoprazole [Protonix] 40 mg tablet,delayed release (DR/EC)
40 mg PO DAILY Qty: 30 0RF
clopidogrel [Plavix] 75 mg Tablet
75 mg PO DAILY
prochlorperazine maleate 10 mg Tablet
10 mg PO Q6HPRN PRN (Reason: N/V) Qty: 14 0RF
amlodipine 2.5 mg Tablet
2.5 mg PO HS Qty: 0 0RF
levothyroxine 50 mcg Tablet
50 mcg PO DAILY@0600 Qty: 0 0RF
polyethylene glycol 3350 17 gram powder in packet
17 g PO DAILY
Discontinued
lacosamide 200 mg Tablet
200 mg PO BID Qty: 60 0RF
diclofenac sodium 1 % Gel
2 g TOPICAL DAILYPRN PRN (Reason: neck pain)
Discharge Orders:
Discharge Patient (As Directed); Ordered 05/02/25
Ordered By: Bismark Brooks
Discharge Date and Time
Print Language: ALBANIAN
[2025-05-02 15:00] VITALS: BP 181/93
[2025-05-02 16:30] VITALS: BP 161/88
--- NOTE | 2025-05-02 16:42 | W.PN.UPDATE ---
Update Note
Progress Note Update
This serves as an addendum to my progress note and discharge summary from 05/02.
Per neurology, her Vimpat taper is as follows:
Decrease Vimpat dosing by 50 mg daily every 3 days and then discontinue.
150 mg twice daily x 3 days
100 mg twice daily x 3 days
50 mg twice daily x 3 days
Stop on 05/12/25
--- NOTE | 2025-05-02 17:44 | PTCARENOTE ---
Patient DC to [facility], transported by daughter. This RN called report to [place] at facility. Patient's IV and tele pack removed, vitals taken by tech stable, patient dressed and belongings gathered in room with assistance of daughter. This RN
clarified Vimpat taper with neurology prior to DC, confirmed dosing with facility and provided daughter with updated paperwork. DC packet handed to daughter, instructed daughter to give packet to nurses at facility upon arrival; daughter verbalized
understanding. Patient transported down to daughter's car at [facility] via staff escort and wheelchair.
[2025-05-04 18:38] LABS: MuSK IgG Ab CBA IFA, Serum <1:10 (<1:10)
== END 2025-05-02 17:15 | DRG 57 ==
LOC: 2 NORTH 09:49
PROVIDERS: Nurse Practitioner; ADMITTING PHYSICIAN Internal Medicine; ATTENDING PHYSICIAN Internal Medicine; EMERGENCY PHYSICIAN Emergency Medicine; FAMILY PHYSICIAN Family Medicine; OTHER PHYSICIAN Internal Medicine Gastroenterology
DX: G90.3 Multi-system degeneration of the autonomic nervous system (principal); R64 Cachexia; E44.0 Moderate protein-calorie malnutrition; E87.1 Hypo-osmolality and hyponatremia; E86.0 Dehydration; E87.5 Hyperkalemia; R63.0 Anorexia; E78.00 Pure hypercholesterolemia, unspecified; E03.9 Hypothyroidism, unspecified; I10 Essential (primary) hypertension; Z86.73 Personal history of transient ischemic attack (TIA), and cerebral infarction without residual deficits; K44.9 Diaphragmatic hernia without obstruction or gangrene; K58.1 Irritable bowel syndrome with constipation; Z79.02 Long term (current) use of antithrombotics/antiplatelets; Z79.890 Hormone replacement therapy; K21.9 Gastro-esophageal reflux disease without esophagitis; Z66 Do not resuscitate; D50.9 Iron deficiency anemia, unspecified; G25.81 Restless legs syndrome; Z87.891 Personal history of nicotine dependence; Z79.899 Other long term (current) drug therapy; Z79.1 Long term (current) use of non-steroidal anti-inflammatories (NSAID); M41.9 Scoliosis, unspecified; Z86.0100 Personal history of colon polyps, unspecified; Z11.52 Encounter for screening for COVID-19; Z68.20 Body mass index [BMI] 20.0-20.9, adult
CPT/HCPCS: 70450; 71260; 72110; 72220; 74018; 74177; 76700; 78226; 80053; 85025; 85027; 86041; 86366; 87811; 92610; 93005; 96374; 97163; 99285; A9537; C9254; Q9967

== ENCOUNTER → 2025-06-24 13:12 | Outpatient (REF) | payer MEDICARE, OTHER, SELFPAY | LOC: MRI 3T 13:12 | PROVIDERS: ATTENDING PHYSICIAN Family Medicine | DX: M51.360 Other intervertebral disc degeneration, lumbar region with discogenic back pain only (principal) | CPT/HCPCS: 72148 ==

== ENCOUNTER → 2025-06-29 08:56 | Outpatient (REF) | payer MEDICARE, OTHER, SELFPAY ==
[2025-06-29 10:06] LABS: Hematocrit 38.6 % (37.0-47.0); Hemoglobin 12.8 g/dL (12.0-16.0); Mean Corp Hgb Conc. 33.2 g/dL (33.0-37.0); Mean Corpuscular Volume 102.4 fL (81.0-99.0); Nucleated Red Blood Cells % 0 %; Platelet Count 207 10^3/uL (130-400); Red Cell Dist. Width 12.8 % (11.5-14.5)
[2025-06-29 10:22] LABS: ALT (SGPT) 27 U/L (0-35); AST (SGOT) 21 U/L (14-36); Albumin 4.3 g/dl (3.5-5.0); Alkaline Phosphatase 64 U/L (38-126); Blood Urea Nitrogen 12 mg/dl (7-17); Calcium 9.8 mg/dl (8.4-10.2); Carbon Dioxide 28 mmol/L (22-30); Chloride 100 mmol/L (98-107); Glucose 65 mg/dl (70-99); HDL Cholesterol 76 mg/dl; LDL Cholesterol, Calculated 80 mg/dl; Potassium 4.7 mmol/L (3.5-5.1); Sodium 135 mmol/L (135-145); Total Protein 7.2 g/dl (6.3-8.2); Very Low Density Lipoprotein 15 mg/dl (0-30); eGFR > 60.00
[2025-06-29 10:50] LABS: TSH 1.65 uIU/ml (0.47-4.68)
[2025-06-29 11:12] LABS: Ferritin 41.3 ng/ml (11.1-264.0)
[2025-06-29 18:35] LABS: Vitamin B12 424 pg/ml (239-931)
== END ==
LOC: REG 08:56
PROVIDERS: ATTENDING PHYSICIAN Specialist; FAMILY PHYSICIAN Family Medicine
DX: I10 Essential (primary) hypertension (principal); E87.1 Hypo-osmolality and hyponatremia; Z00.00 Encounter for general adult medical examination without abnormal findings; M85.89 Other specified disorders of bone density and structure, multiple sites; I65.1 Occlusion and stenosis of basilar artery; H35.3132 Nonexudative age-related macular degeneration, bilateral, intermediate dry stage; E78.2 Mixed hyperlipidemia; E55.9 Vitamin D deficiency, unspecified; E53.8 Deficiency of other specified B group vitamins; E03.9 Hypothyroidism, unspecified; K59.01 Slow transit constipation; R79.0 Abnormal level of blood mineral; R64 Cachexia; E46 Unspecified protein-calorie malnutrition
CPT/HCPCS: 36415; 80053; 80061; 82607; 82728; 83935; 84443; 85025

== ENCOUNTER → 2025-07-10 12:47 | Outpatient (REF) | payer MEDICARE, OTHER, SELFPAY | LOC: RCS 12:47 | PROVIDERS: ATTENDING PHYSICIAN Nurse Practitioner; FAMILY PHYSICIAN Family Medicine | DX: R53.1 Weakness (principal); I10 Essential (primary) hypertension; R06.02 Shortness of breath | CPT/HCPCS: 93306 ==

== ENCOUNTER → 2025-07-24 15:30 | Outpatient (REF) | payer MEDICARE, OTHER, SELFPAY | LOC: MRI 3T 15:30 | PROVIDERS: ATTENDING PHYSICIAN Internal Medicine Gastroenterology; FAMILY PHYSICIAN Family Medicine | DX: K86.89 Other specified diseases of pancreas (principal) | CPT/HCPCS: 74183; A9575 ==

== ENCOUNTER → 2025-08-13 12:14 | Outpatient (REF) | payer MEDICARE, OTHER, SELFPAY ==
[2025-08-13 13:58] LABS: Blood Urea Nitrogen 11 mg/dl (7-17); Calcium 9.8 mg/dl (8.4-10.2); Carbon Dioxide 30 mmol/L (22-30); Chloride 98 mmol/L (98-107); Glucose 88 mg/dl (70-99); Potassium 4.7 mmol/L (3.5-5.1); Sodium 133 mmol/L (135-145); eGFR > 60.00
== END ==
LOC: REG 12:14
PROVIDERS: ATTENDING PHYSICIAN Specialist; FAMILY PHYSICIAN Family Medicine
DX: I10 Essential (primary) hypertension (principal); E87.1 Hypo-osmolality and hyponatremia
CPT/HCPCS: 36415; 80048